=== PATIENT | female | born 1945 | race Caucasian/White ===

== ENCOUNTER 2022-02-16 19:16 | Outpatient (CLI) | payer OTHER, SELFPAY | END 2022-02-16 19:17 | disposition home or self-care (01) | LOC: AMB 03-02 12:53 | PROVIDERS: PCP Family Medicine; Visit Provider Family Medicine | DX: M54.9 Dorsalgia, unspecified (principal) | CPT/HCPCS: A0425; A0427 ==

== ENCOUNTER 2022-02-16 20:09 | Inpatient (IN) | payer OTHER, SELFPAY ==
[2022-02-16 20:10] VITALS: BP 147/96
[2022-02-16 20:19] VITALS: BP 142/88; PULSE 48; RESP 11; TEMP 36.8; O2SAT 95; BMI 24.8
[2022-02-16 20:20] VITALS: BP 142/88; PULSE 48; RESP 16; O2SAT 96
[2022-02-16 20:40] VITALS: BP 146/64; PULSE 51; RESP 14; O2SAT 96
[2022-02-16] MEDS: HYDROmorphone 0.5 mg/0.5 ml inj IVP ×2 (20:57→21:45)
[2022-02-16 21:00] VITALS: BP 143/57; PULSE 52; RESP 16; O2SAT 95
--- NOTE | 2022-02-16 21:19 | ED.NURSE ---
Pt states back pain down from a 7 to a 4 now after IV social media executive.
[2022-02-16 22:47] LABS: SARS PCR* Negative SARS-CoV-2 (Negative)
--- NOTE | 2022-02-16 22:54 | CRLHL7_ITS ---
For Patients: As a result of the Century Cures Act, medical imaging exams and procedure reports are released immediately into your electronic medical record. You may view this report before your referring provider. If you have questions, please contact your health care provider. INDICATION: Right groin pelvic hip pain TECHNIQUE: Pelvis radiograph, Hip radiograph 3 views right COMPARISON: 11/30/2021 FINDINGS: Bone: No acute fractures or aggressive bone lesions are identified. Severe diffuse osteopenia is noted. Joint: The hip joints are unremarkable. The visualized sacroiliac joints are unremarkable in appearance. The pubic symphysis is normal in appearance. Soft tissue: Unremarkable. The visualized bowel gas pattern of the pelvis is unremarkable in appearance. No radiopaque foreign bodies are seen. IMPRESSION: 1. No acute osseous injuries or abnormalities are noted. Dictated by: John Blum MD @ 02/16/2022 23:55:57 (Electronically Signed)
--- NOTE | 2022-02-16 23:33 | P.IMHP_ITS ---
Hospitalist- H&P: HPI History of Present Illness Date Seen: 02/16/22 Chief complaint: BACK SPASMS - BACK PAIN Narrative: Kendra Steel is a 76 year old female admitted through the emergency department with low back pain, right groin and leg pain. Patient appears to be somewhat sedated and has a hard time recalling recent events. After some effort the following recent history is obtained: Patient fell on about January 01 and was seen in our emergency room January 05 where she was diagnosed with L4 and L3 compression fractures as well as spinal stenosis and multilevel bilateral foraminal stenosis of her lumbar spine. She was discharged to home with her and reports it was difficult but she was able to manage. She had outpatient back clinic follow-up as well as follow up with her primary care provider. She thinks her back is getting better. She recalls that her initial back pain was on the left side primarily and that her pain now is on the right side and seems different to her. In reviewing notes from the emergency department and clinic visit it sounds like symptoms have been on both sides. is now complaining because she is having increasing right groin pain. She is not aware of a new injury. She has not had a fever. She reports is quite difficult for her to walk and nurses in the emergency department say that she cannot get up without assistance. Evaluation in the clinic as well as in the emergency room shows no new neurologic deficits on physical examination. Patient has been on MS Contin 15 mg b.i.d. and gabapentin 600 mg 3 times a day for managing her pain. She was apparently also treated with calcitonin nasal spray at some point but this is apparently been stopped. She had a trial of steroids at some point as well probably not on that any longer. Patient does not know any of her current medications by name or dose or purpose. She is not having bowel incontinence. She has had some constipation and uses some form of laxative occasionally for that. She does not have any numbness in or legs or feet. Review of Systems Narrative: She denies any other symptoms of illness including headache, cold, cough, sore throat, chest pain, shortness of breath, syncope, nausea, vomiting, abdominal pain. She has been eating normally. She does have some lower extremity edema which she says is developed over the past few weeks. 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 is healthcare power of assistant county attorney. Code status is DNR. She is a former cigarette smoker. Formally had a problem with alcohol abuse. She is unable to tell me today if she is still drinking and when she last had something to drink. She does not use recreational drugs. Smoking Status: Former smoker Do you use any of these nicotine containing products: None Second hand tobacco smoke exposure: No How often do you have a drink containing alcohol: monthly or less AUDIT-C Alcohol total score: 1 Non-prescribed substance use: denies use Meds Home Medications and Allergies Home Medications Medication Instructions Recorded Confirmed Type amlodipine 5 mg tablet 5 mg PO DAILY tab 01/26/22 02/16/22 History aspirin-calcium carbonate 81 1 tab PO tab 01/26/22 01/26/22 History mg-300 mg calcium (777 mg) tablet bupropion HCl 150 mg 24 hr tablet, 150 mg PO DAILY 01/26/22 02/16/22 History extended release cholecalciferol (vitamin D3) 125 5,000 unit PO DAILY tab 01/26/22 02/16/22 History mcg (5,000 unit) tablet cyanocobalamin (vitamin B-12) 1,000 mcg PO DAILY 01/26/22 02/16/22 History 1,000 mcg tablet ferrous sulfate 325 mg (65 mg 325 mg PO DAILY tab 01/26/22 02/16/22 History iron) tablet fluoxetine 20 mg capsule 20 mg PO DAILY 01/26/22 02/16/22 History gabapentin 300 mg capsule 600 mg PO TID cap 01/26/22 02/16/22 History levothyroxine 100 mcg tablet 100 mcg PO DAILY tab 01/26/22 02/16/22 History magnesium chloride 64 mg 64 mg PO DAILY 01/26/22 02/16/22 History (magnesium chloride) tablet,delayed release metoprolol succinate 25 mg 50 mg PO DAILY 01/26/22 02/16/22 History tablet,extended release 24 hr metoprolol succinate 50 mg 50 mg PO DAILY 01/26/22 02/16/22 History tablet,extended release 24 hr pantoprazole 40 mg tablet,delayed 40 mg PO DAILY 01/26/22 02/16/22 History release polyethylene glycol 3350 17 17 g PO DAILY PRN g 01/26/22 02/16/22 History gram/dose oral powder primidone 50 mg tablet 50 mg PO Q12H tab 01/26/22 02/16/22 History rosuvastatin 10 mg tablet 10 mg PO DAILY 01/26/22 02/16/22 History simvastatin 40 mg tablet 40 mg PO .Bedtime 01/26/22 02/16/22 History warfarin 5 mg tablet 5 mg PO DAILY tab 01/26/22 02/16/22 History hydrocodone 5 mg-acetaminophen 325 1 - 2 tab PO Q6H PRN tab 01/27/22 01/27/22 History mg tablet alendronate 70 mg tablet 70 mg PO .weekly 02/16/22 02/16/22 History amiodarone 200 mg tablet 200 mg PO DAILY 02/16/22 02/16/22 History furosemide 40 mg tablet 40 mg PO DAILY PRN 02/16/22 02/16/22 History morphine 15 mg tablet,extended 15 mg PO Q12H 02/16/22 02/16/22 History release Allergies Allergy/AdvReac Type Severity Reaction Status Date / Time pneumococcal vaccine Allergy Severe Anaphylaxis Verified 02/16/22 20:25 [From Prevnar 13 (PF)] prednisone Allergy Mild Rash Verified 02/16/22 20:26 Influenza A virus Allergy Severe Anaphylaxis Uncoded 02/16/22 20:25 Exam Narrative: Exam Narrative: She is sleeping but arouses to voice. She appears somewhat sedated. She is oriented to her circumstances. slow to answer questions. Has difficulty recalling recent events such as when she was injured, where her pain was before, what evaluation has been done, what treatment she is taking. Head is without evidence of trauma. Eyes are normal. Pupils are not pinpoint. Extraocular movements are full. Oropharynx is normal with dry mucous membranes. No mucosal abnormalities. No facial asymmetry. Neck is supple without mass or adenopathy. Respirations are clear to auscultation. Good air exchange all lung pak. Cardiovascular: S1, S2, regular rate and rhythm. No murmur gallop or rub. Abdomen: Bowel sounds active. Abdomen is soft without tenderness or mass. External genitalia normal. Extremities with 1+ edema bilaterally. She has intact pedal pulses and intact sensation in lower extremities. She is unable to lift either heel off of the gurney. She can flex both knees to about 90?. She reports pain in her right groin limiting that side and not so much on the left. Straight leg raising causes right groin pain on the right. Poorly tolerates internal next rotation and abduction and adduction of the right hip. Range of motion in the right knee is unremarkable. Strength testing is limited because of right groin pain. Right ankle as normal flexion and extension. Right Great toe normal dorsiflexion. Left lower extremity is also weak. She does not tolerate strength testing but no focal weakness is identified in knee flexion extension, ankle dorsiflexion plantar flexion and great toe dorsiflexion on the left. Left hip flexion is inhibited by pain. Const: Vital Signs, click to edit/add: Vital Signs - 24 hr 02/16/22 20:10 02/16/22 20:19 02/16/22 20:20 Temperature 98.3 F Pulse Rate [Right Pulse Oximeter] 48 L 48 L Respiratory Rate 11 L 16 Blood Pressure [Le ft Upper Arm] 147/96 H 142/88 H 142/88 H Pulse Oximetry 95 96 02/16/22 20:40 02/16/22 21:00 Temperature Pulse Rate [Right Pulse Oximeter] 51 L 52 L Respiratory Rate 14 16 Blood Pressure [Le ft Upper Arm] 146/64 H 143/57 H Pulse Oximetry 96 95 Documenting provider has reviewed patient's vital signs: yes Assessment and Plan Assessment and plan (1) Right groin pain: Status: Acute Assessment and Plan: Cause of her right groin pain may be from her multilevel lumbar disease seen on MRI from January 05. Notes indicate that this groin pain may not be new but she tells me this is a new problem. Will obtain radiographs of the hip and pelvis looking for other abnormalities including pelvic fracture, hip fracture, osteoarthritis. PT and OT to evaluate. (2) Disability of walking: Status: Acute Assessment and Plan: Due to her multilevel lumbar disease, compression fractures, spinal stenosis, foraminal stenosis and her right groin pain patient appears to be unable to ambulate independently. Will have PT and OT evaluate. Consider additional imaging if necessary. At this point patient appears that she is not going to be able to live independently based on what I have seen jimmy (3) Chronic, continuous use of opioids: Status: Acute Assessment and Plan: Patient appears overly sedated, possibly due to her pain medications. By history it sounds like her pain is been poorly controlled. This appears to be a difficult management problem with both uncontrolled pain and excessive sedation from pain medications occurring at the same time. She is a poor candidate for long-term opioid therapy with her history of alcoholism and other mental health issues. (4) Spinal stenosis: Problem comment: Severe spinal stenosis at L3-4 with complete effacement of the thecal sac and moderate bilateral foraminal stenosis. Moderate spinal stenosis at L4-5 Status: Acute Assessment and Plan: Uncertain how much this is contributing to her pain so further evaluation is warranted. (5) Radiculopathy due to disorder of intervertebral disc of lumbar spine: Problem comment: See MRI from 01/05/2022 Status: Acute (6) Compression fracture of lumbar vertebra: Problem comment: L3 and L4 compression fracture 01/05/2022 Status: Acute (7) Altered mental status: Status: Acute Assessment and Plan: Excessive sedation presumably secondary to opioid medications plus gabapentin. Optimally these would be tapered over weeks. Will start with tapering gabapentin tonamber. I am under able to ascertain susyight how much background cognitive impairment there is and how much sedation there is present at this time. It does concern me that she is independent in managing her relatively complex medication regimen but does not know any of her medications, their doses or purposes. She apparently has no assistance with medications and does not use a pill box. Plan Will assess and monitor other chronic medical problems while she is in the hospital. Primary attention will be paid however to her disability, back and groin problems which are now disabling her to the point of not being independently functional
[2022-02-16 23:41] LABS: Albumin* 2.9 g/dL (3.3-5.0); Chloride* 100 mmol/L (96-114)
[2022-02-16 23:42] LABS: Potassium* 3.2 mmol/L (3.6-5.1); Sodium* 135 mmol/L (135-149)
[2022-02-16 23:44] LABS: Creatinine* 1.1 mg/dL (0.5-1.5); Est. Creatinine Clearance* 37.12; Estimated Glomerular Filt Rate 53 ml/min
[2022-02-16 23:45] LABS: Alanine Aminotransferase* 9 U/L (4-35); Alkaline Phosphatase* 109 U/L (40-150); Aspartate Amino Transferase* 19 U/L (12-35); Bilirubin Total* 0.4 mg/dL (0.1-1.5); Blood Urea Nitrogen* 14 mg/dL (7-30); Calcium* 7.9 mg/dL (8.4-10.6); Carbon Dioxide* 33 mmol/L (20-32); Glucose* 107 mg/dL (60-115); Total Protein* 5.6 g/dL (6.0-8.3)
[2022-02-16 23:48] LABS: C Reactive Protein* 3.9 mg/dL (0.5-1.0); Ethanol* < 0.01 % (0.01-0.03)
[2022-02-16 23:48] LABS: Basophils Absolute Auto 0.01 K/uL (0.00-0.30); Basophils Percent Auto 0.2 % (0.0-3.0); Eosinophils Absolute Auto 0.06 K/uL (0.00-0.50); Hematocrit 32.8 % (33.0-51.0); Hemoglobin* 10.6 gm/dL (12.0-16.0); Immature Granulocytes Abs Auto 0.02 K/uL (0.00-0.30); Lymphocytes Absolute Auto 1.61 K/uL (0.90-2.90); Mean Corpuscular HGB Conc 32 gm/dL (32-36); Mean Corpuscular Hemoglobin 35 pg (26-34); Mean Corpuscular Volume 108 fL (80-100); Monocytes Percent Auto 10.5 % (0.0-11.0); Neutrophils Absolute Auto 3.85 K/uL (1.7-7.0); Platelet Count* 148 K/uL (140-440); RDW Coefficient of Variation % 14.5 % (11.5-15.5); Red Blood Count 3.05 m/uL (4.00-5.20)
--- NOTE | 2022-02-16 23:48 | ED.BACK ---
HPI - Back Pain/Injury General Date Seen: 02/16/22 Chief Complaint: Back Injury/Pain Stated Complaint: BACK SPASMS - BACK PAIN Time Seen by Provider: 02/16/22 20:15 Source: patient and family Mode of arrival: EMS Limitations: no limitations History of Present Illness HPI Narrative: Patient is a 76-year-old female who presents by EMS with increasing back pain. Pain goes into her right lower extremity a little bit bilaterally, into her right groin. Actually had seen her in my medical [facility]. Placed her on gabapentin, gave her my calcitonin nasal spray. She follow-up with her physician and was placed on MS Contin. Her back pain is worsened she has not been wearing the brace I told her to wear. And she is stopped use she tells me she has no problems with bowel or bladder although she is spring little bit a urine and has to wear a pad. No numbness tingling weakness in her lower extremities, no fevers chills, please see my note from seeing her in spine clinic MD elicited complaint: back pain Pertinent past history: prior back pain and recent trauma Onset (ago): week(s) Timing: constant Severity: severe Similar Symptoms Previously: Yes Quality: burning, stabbing, spasming and throbbing Location: lumbar spine Radiation: none Exacerbating factors: movement, sitting upright and walking Relieving factors: none Treatments prior to arrival: prescription analgesics Work related injury: No Related Data Home Medications Medication Instructions Recorded Confirmed amlodipine 5 mg tablet 5 mg PO DAILY tab 01/26/22 02/16/22 aspirin-calcium carbonate 81 1 tab PO tab 01/26/22 01/26/22 mg-300 mg calcium (777 mg) tablet bupropion HCl 150 mg 24 hr tablet, 150 mg PO DAILY 01/26/22 02/16/22 extended release cholecalciferol (vitamin D3) 125 5,000 unit PO DAILY tab 01/26/22 02/16/22 mcg (5,000 unit) tablet cyanocobalamin (vitamin B-12) 1,000 mcg PO DAILY 01/26/22 02/16/22 1,000 mcg tablet ferrous sulfate 325 mg (65 mg 325 mg PO DAILY tab 01/26/22 02/16/22 iron) tablet fluoxetine 20 mg capsule 20 mg PO DAILY 01/26/22 02/16/22 gabapentin 300 mg capsule 600 mg PO TID cap 01/26/22 02/16/22 levothyroxine 100 mcg tablet 100 mcg PO DAILY tab 01/26/22 02/16/22 magnesium chloride 64 mg 64 mg PO DAILY 01/26/22 02/16/22 (magnesium chloride) tablet,delayed release metoprolol succinate 25 mg 50 mg PO DAILY 01/26/22 02/16/22 tablet,extended release 24 hr metoprolol succinate 50 mg 50 mg PO DAILY 01/26/22 02/16/22 tablet,extended release 24 hr pantoprazole 40 mg tablet,delayed 40 mg PO DAILY 01/26/22 02/16/22 release polyethylene glycol 3350 17 17 g PO DAILY PRN g 01/26/22 02/16/22 gram/dose oral powder primidone 50 mg tablet 50 mg PO Q12H tab 01/26/22 02/16/22 rosuvastatin 10 mg tablet 10 mg PO DAILY 01/26/22 02/16/22 simvastatin 40 mg tablet 40 mg PO .Bedtime 01/26/22 02/16/22 warfarin 5 mg tablet 5 mg PO DAILY tab 01/26/22 02/16/22 hydrocodone 5 mg-acetaminophen 325 1 - 2 tab PO Q6H PRN tab 01/27/22 01/27/22 mg tablet alendronate 70 mg tablet 70 mg PO .weekly 02/16/22 02/16/22 amiodarone 200 mg tablet 200 mg PO DAILY 02/16/22 02/16/22 furosemide 40 mg tablet 40 mg PO DAILY PRN 02/16/22 02/16/22 morphine 15 mg tablet,extended 15 mg PO Q12H 02/16/22 02/16/22 release Previous Rx's Medication Instructions Recorded calcitonin (salmon) 200 1 spray INTRANASAL (ALT) QDAY 60 01/27/22 unit/actuation nasal spray Days #3.7 ml NS Allergies Allergy/AdvReac Type Severity Reaction Status Date / Time pneumococcal vaccine Allergy Severe Anaphylaxis Verified 02/16/22 20:25 [From Prevnar 13 (PF)] prednisone Allergy Mild Rash Verified 02/16/22 20:26 Influenza A virus Allergy Severe Anaphylaxis Uncoded 02/16/22 20:25 Review of Systems Status of ROS: Reports: 10 or more systems reviewed and unremarkable except as noted in History and below [facility] Medical History Altered mental status Anemia Chronic anticoagulation Compression fracture of lumbar vertebra COPD (chronic obstructive pulmonary disease) Depression Disability of walking Hiatal hernia History of alcoholism Hyperlipidemia Hypothyroidism Lumbar radicular pain Osteoporosis Panic disorder Paroxysmal atrial fibrillation Restrictive pericarditis Right groin pain Stage 3 chronic kidney disease Thyroid disease Tremors of nervous system Vitamin B12 deficiency Surgical History History of repair of hiatal hernia History of total right knee replacement (11/02/20) Family History Mother Breast cancer Lung cancer Social History (Updated 02/16/22 @ 23:42 by Chema Kirk MD) Narrative: She lives near [place] with her . is healthcare power of [place] attorney. Code status is DNR. She is a former cigarette smoker. Formally had a problem with alcohol abuse. She is unable to tell me today if she is still drinking and when she last had something to drink. She does not use recreational drugs. Smoking Status: Former smoker Do you use any of these nicotine containing products: None Second hand tobacco smoke exposure: No How often do you have a drink containing alcohol: monthly or less AUDIT-C Alcohol total score: 1 Non-prescribed substance use: denies use Exam Narrative: Exam Narrative: I see here in room 6. She complains of some leg swelling although I do not really see a lot of edema of her lower legs her EHLs great toe flexors ankle dorsiflexors plantar flexors knee flexion and hip flexors are graded 5/5 power bilaterally. She has scars on her right knee from a previous total knee, sensation is normal over both her legs bilaterally and she has normal pulses. Straight leg things positive a 20? on the right side with been listed of back pain. And pain to her right groin. I did roll her over. Palpation over her lumbar spine shows no pain or tenderness. She has good rectal tone. No perianal sensation abnormality. Her abdomen is soft there is no guarding no guarding, no organomegaly. Bowel sounds are normal. Chest is good air entry heart sounds are normal, Const: Vital Signs, click to edit/add: Vital Signs - 24 hr 02/16/22 20:10 02/16/22 20:19 02/16/22 20:20 Temperature 98.3 F Pulse Rate [Right Pulse Oximeter] 48 L 48 L Respiratory Rate 11 L 16 Blood Pressure [Le ft Upper Arm] 147/96 H 142/88 H 142/88 H Pulse Oximetry 95 96 02/16/22 20:40 02/16/22 21:00 Temperature Pulse Rate [Right Pulse Oximeter] 51 L 52 L Respiratory Rate 14 16 Blood Pressure [Le ft Upper Arm] 146/64 H 143/57 H Pulse Oximetry 96 95 Course Vital Signs Vital signs: Initial Vital Signs Blood Pressure 147/96 H 02/16/22 20:10 Blood Pressure Mean 113 02/16/22 20:10 Blood Pressure Position Supine 02/16/22 20:10 Vital Signs Blood Pressure 147/96 H 02/16/22 20:10 Temperature 98.3 F 02/16/22 20:19 Pulse Rate 52 L 02/16/22 21:00 Respiratory Rate 16 02/16/22 21:00 Blood Pressure 143/57 H 02/16/22 21:00 Pulse Oximetry 95 02/16/22 21:00 MDM - Back Pain/Injury Differential Diagnosis Differential diagnosis: Likely lumbar radiculopathy, sciatica, strain of lumbar region, thoracic back pain and AAA Medical Records Attestation: I reviewed the patient's medical records. Lab Data Attestation: I reviewed the patient's lab results. Labs: Lab Results 02/16/22 Range/Units 21:45 SARS-CoV-2 (PCR) Negative SARS-CoV-2 (Negative) Discharge Plan Discharge Clinical Impression: Compression fracture of L4 vertebra, Chronic, continuous use of opioids, Compression fracture of lumbar vertebra, Radiculopathy due to disorder of intervertebral disc of lumbar spine, Spinal stenosis of lumbar region without neurogenic claudication Patient Disposition: Admitted As Inpatient Condition: Improved
[2022-02-16 23:49] LABS: Slide Review Reflex No
[2022-02-17] VITALS (8 sets, daily range): BP systolic 137–179; BP diastolic 73–94; PULSE 50–52; RESP 18–20; TEMP 36.3–36.8; O2SAT 94–100; BMI 28.7
[2022-02-17] MEDS: PRIMIDONE 50 MG TABLET PO ×3 (00:14→23:27)
[2022-02-17] MEDS: POTASSIUM BICARB 25 MEQ EFFERVESCENT TAB PO (00:54)
[2022-02-17 00:58] LABS: D Dimer Quantitative* 0.88 ug/ml (0.00-0.50)
[2022-02-17 01:00] LABS: Prothrombin Time 97.7 Seconds
[2022-02-17 04:50] LABS: Appearance Urine Clear (Clear); Bilirubin Urine Negative (Negative); Blood Urine Negative (Negative); Color Urine Yellow (Yellow); Glucose Urine Negative (Negative); Ketones Urine Negative (Negative); Leukocyte Esterase Urine Negative (Negative); Nitrite Urine Negative (Negative); Protein Urine Negative (Negative); Specific Gravity Urine 1.015 (1.000-1.030)
[2022-02-17 05:00] LABS: Amphetamine Screen Urine Negative (Negative); Benzodiazepines Screen Urine Negative (Negative); Cannabinoid Screen Urine Negative (Negative); Cocaine Screen Urine Negative (Negative); Methadone Screen Urine Negative (Negative); Methamphetamines Screen Urine Negative (Negative); Oxycodone Screen Urine Negative (Negative); Phencyclidine Screen Urine Negative (Negative); Tricyclic Antidepressant Urine Negative (Negative)
[2022-02-17 05:01] LABS: Barbiturate Screen Urine POSITIVE (Negative); Opiate Screen Urine POSITIVE (Negative)
--- NOTE | 2022-02-17 05:29 | PC.NURSE ---
Shift 7p-7a: Admitted pt. into room 247 around midnight. Pt. AOx4, following commands. VSS on RA, Pt.'s BP high with systolic 170's with movement and pain. Pt. received morphine PRN for pain, repositioned for comfort q2h. Pt. voiding w/o difficulty, intermittently incontinent. Pt.'s urinalysis results pending. Plan for PT/OT consult today
[2022-02-17] MEDS: LEVOTHYROXINE 100 MCG TABLET PO (06:09)
[2022-02-17 07:39] LABS: Basophils Absolute Auto 0.01 K/uL (0.00-0.30); Basophils Percent Auto 0.2 % (0.0-3.0); Eosinophils Absolute Auto 0.05 K/uL (0.00-0.50); Eosinophils Percent Auto 0.9 % (0.0-7.0); Hematocrit 32.2 % (33.0-51.0); Hemoglobin* 10.6 gm/dL (12.0-16.0); Immature Granulocytes Abs Auto 0.01 K/uL (0.00-0.30); Lymphocytes Absolute Auto 1.17 K/uL (0.90-2.90); Lymphocytes Percent Auto 22.2 % (20-44); Mean Corpuscular HGB Conc 33 gm/dL (32-36); Mean Corpuscular Hemoglobin 36 pg (26-34); Mean Corpuscular Volume 108 fL (80-100); Monocytes Percent Auto 10.1 % (0.0-11.0); Neutrophils Percent Auto 66.4 % (42.0-72.0); Platelet Count* 144 K/uL (140-440); RDW Coefficient of Variation % 14.6 % (11.5-15.5); Red Blood Count 2.98 m/uL (4.00-5.20); White Blood Count* 5.27 K/uL (4.50-11.00)
[2022-02-17 07:41] LABS: Slide Review Reflex No
[2022-02-17 07:56] LABS: Chloride* 101 mmol/L (96-114); Potassium* 3.6 mmol/L (3.6-5.1); Sodium* 137 mmol/L (135-149)
[2022-02-17 07:59] LABS: Blood Urea Nitrogen* 12 mg/dL (7-30); Carbon Dioxide* 33 mmol/L (20-32); Est. Creatinine Clearance* 40.83; Estimated Glomerular Filt Rate 59 ml/min; Glucose* 92 mg/dL (60-115)
[2022-02-17 08:00] LABS: Calcium* 7.9 mg/dL (8.4-10.6); Magnesium* 1.9 mg/dL (1.5-2.6)
[2022-02-17 08:50] LABS: INR 13.64 (0.91-1.10)
[2022-02-17] MEDS: KETOROLAC 15 MG/ML inj IVP (09:14)
--- NOTE | 2022-02-17 10:03 | PC.NURSE ---
Addendum entered by Fern Tang RN 02/17/22 12:01: Orders rece'd for Vitamin K IV and INR re-draw at 1400. Lab notified. Pt. tolerated Vit K well, completed PT/OT consults, able to stand w/walker and transfer this way to [facility] and back to chair. Fentanyl patch applied to R low back, lumbar-sacral region. Pt notes feeling better than this AM. Tolerates reg. diet, takes pills w/water. Spouse, Lex, in room. Pt. requested to rest at this time. Original Note: Pt. with 10/10 pain this morning, given PO morphine with some relief. Ceiling lift from BS to recliner. Pain focused in right leg and across back. updated; orders received. Meds given per eMAR. Critical INR received from lab of 13 plus. updated, stat re-draw entered and drawn around 0900. Called lab to check on results at 1000; stated new INR draw was 12.62. updated.
[2022-02-17 10:04] LABS: Prothrombin Time 94.2 Seconds
[2022-02-17 10:05] LABS: INR 12.62 (0.91-1.10)
[2022-02-17] MEDS: PHYTONADIONE (VIT K1) 10 MG in 0.9 % SODIUM CHLORIDE 50 ml 50 ML 100 MG IVPB (10:33)
[2022-02-17] MEDS: fentaNYL 12 mcg/hr PATCH 1 PATCH TRANSDERMA (10:38)
[2022-02-17] MEDS: ACETAMINOPHEN 650 MG TABLET ER 1300 MG PO ×2 (10:38→19:53)
[2022-02-17] MEDS: buPROPion XL 150 MG TABLET PO (10:39)
[2022-02-17] MEDS: OMEPRAZOLE 20 MG CAPSULE DR 40 MG PO (10:39)
[2022-02-17] MEDS: CYANOCOBALAMIN (VITAMIN B-12) 500 MCG TABLET 1000 MCG PO (10:39)
[2022-02-17] MEDS: ROSUVASTATIN CALCIUM 10 MG TABLET PO (10:39)
[2022-02-17] MEDS: AMLODIPINE 5 MG TABLET PO (10:40)
[2022-02-17] MEDS: FLUOXETINE HCL 20 MG CAPSULE PO (10:41)
[2022-02-17] MEDS: METOPROLOL SUCCINATE (XL) 25 MG TAB PO (10:42)
[2022-02-17] MEDS: FERROUS SULFATE 325 MG TABLET PO (10:42)
[2022-02-17] MEDS: GABAPENTIN 100 MG CAPSULE PO ×3 (10:43→21:14)
[2022-02-17] MEDS: AMIODARONE 200 MG TABLET PO (10:44)
[2022-02-17 14:40] LABS: INR 2.47 (0.91-1.10); Prothrombin Time 27.2 Seconds
--- NOTE | 2022-02-17 15:39 | PM.IMPN1 ---
Progress Note: A&P Assessment and plan (1) Elevated INR: Status: Acute Assessment and Plan: Inexplicably she was at goal, less 2 at admission and then jumped to 12 in 13 this morning. After vitamin K was back down to less than 3. I cannot explain why her INR jumped even after verification. I wonder if in her pain crisis she extra doses of warfarin and not Tylenol or other pain medication. (2) Pain crisis: Status: Acute Assessment and Plan: Significant pain from fracture, osteoporotic and severe spinal stenosis. Pain radiates into her groin. I have made several medication adjustments since admission. Please see the Mar. She came in on higher doses of gabapentin 300 t.i.d., extended release morphine twice a day. I would like to schedule Tylenol, schedule Calcitonin, apply a fentanyl patch, 12.5 mcg, and reduce her gabapentin. We had her on immediate release oral morphine and I am going to decrease this since I started the fentanyl (3) Altered mental status: Status: Acute Assessment and Plan: Much improved. I really wonder what she took at home that made her so groggy and confused. (4) Compression fracture of lumbar vertebra: Problem details: L3 and L4 compression fracture 01/05/2022 Status: Acute Assessment and Plan: As above (5) Spinal stenosis of lumbar region without neurogenic claudication: Problem details: Severe spinal stenosis at L3-4 with complete effacement of the thecal sac and moderate bilateral foraminal stenosis. Moderate spinal stenosis at L4-5 Status: Acute Assessment and Plan: As above (6) Disability of walking: Status: Acute Assessment and Plan: I suspect she will need a couple weeks of rehab to manage medication and strength and endurance. (7) Chronic, continuous use of opioids: Status: Acute Assessment and Plan: It is possible that using a fentanyl patch may work better for her than extended release morphine. the other adjuvant medications to include Calcitonin and Tylenol with a reduction of the gabapentin may help with her mental clearing. Subjective Date Seen: 02/17/22 Interval history: Daily Progress Note - Hospital Medicine Day #: 2 CC: Admitted overnight with pain crisis, altered mental status. Significantly elevated INR noted this more OVERNIGHT UPDATES FROM STAFF & MED, LAB, IMAGING UPDATES Patient's mental fogginess has improved. Still complaining of groin and back pain. She still has weakness in her legs. However the pain has improved since admission. Interestingly, inexplicably. Mildly hypertensive 155/94 Pulse 52 Afebrile Room air Lab review MCV elevated 108. Modest anemia Surprisingly her INR went from 1.3 and then in explode complete jumped to 13.6 on repeat was 12.6 after 10 mg of IV vitamin K was down to 2.47 Mildly elevated TSH FINDINGS: Bone: No acute fractures or aggressive bone lesions are identified. Severe diffuse osteopenia is noted. Joint: The hip joints are unremarkable. The visualized sacroiliac joints are unremarkable in appearance. The pubic symphysis is normal in appearance. Soft tissue: Unremarkable. The visualized bowel gas pattern of the pelvis is unremarkable in appearance. No radiopaque foreign bodies are seen. IMPRESSION: 1. No acute osseous injuries or abnormalities are noted. Lumbar spine MRI done on 01/05. Impression : 1. Acute L4 superior endplate compression fracture. 20 percent vertebral body height loss with no retropulsed fragments. Mild-moderate chronic L3 compression fracture 2. At L3-4, severe spinal canal stenosis with complete effacement of the thecal sac and moderate bilateral foramen stenosis. 3. At L4-5, moderate spinal canal stenosis and mild bilateral neural foramen narrowing. 4. At L5-S1, moderate right neural foramen narrowing due to facet joint synovial cyst. 5. At L2-3, moderate subarticular recess narrowing, moderate right and mild left neural foramen narrowing. Review of Systems: See subjective Cardiac: No new chest pain/pressure/palpitations. Respiratory: no new dyspnea. GI: No abdominal bloating Objective: Vitals: see above Lungs: Clear. Cardiac: S1S2. Disposition/Potential discharge - Likely to return to previous living situation. Total time is 70 minutes with greater than 50% spent in counseling and coordination of care. Exam Const: Vital Signs, click to edit/add: Vital Signs - 24 hr 02/16/22 20:10 02/16/22 20:19 02/16/22 20:20 Temperature 98.3 F Pulse Rate [Right Pulse Oximeter] 48 L 48 L Respiratory Rate 11 L 16 Blood Pressure [Le ft Arm] Blood Pressure [Le ft Upper Arm] 147/96 H 142/88 H 142/88 H Pulse Oximetry 95 96 02/16/22 20:40 02/16/22 21:00 02/17/22 00:06 Temperature 98.1 F Pulse Rate [Right Pulse Oximeter] 51 L 52 L Respiratory Rate 14 16 18 Blood Pressure [Le ft Arm] 179/74 H Blood Pressure [Le ft Upper Arm] 146/64 H 143/57 H Pulse Oximetry 96 95 100 02/17/22 00:45 02/17/22 03:00 02/17/22 08:15 Temperature 98.1 F 98.1 F Pulse Rate [Right Pulse Oximeter] 52 L Respiratory Rate 18 18 20 Blood Pressure [Le ft Arm] 179/74 H 179/74 H 155/94 H Blood Pressure [Le ft Upper Arm] Pulse Oximetry 100 100 94 Labs Labs: Laboratory Results - last 24 hr 02/16/22 02/16/22 02/16/22 21:45 22:56 22:56 WBC RBC Hgb Hct MCV MCH MCHC RDW Coeff of Norma Plt Count Neut % (Auto) Lymph % (Auto) Mchen[place] % (Auto) Eos % (Auto) Baso % (Auto) Neut # (Auto) Lymph # (Auto) Mchenry # (Auto) Eos # (Auto) Baso # (Auto) Abs Immat Gran (auto) INR D-Dimer Quant (PE/DVT) Sodium 135 Potassium 3.2 L Chloride 100 Carbon Dioxide 33 H BUN 14 Creatinine 1.1 Estimated Creat Clear 37.12 Estimated GFR 53 Glucose 107 Calcium 7.9 L Magnesium Total Bilirubin 0.4 AST 19 ALT 9 Alkaline Phosphatase 109 C-Reactive Protein 3.9 H Total Protein 5.6 L Albumin 2.9 L TSH 8.970 H Urine Color Urine Appearance Urine pH Ur Specific [place] Urine Protein Urine Glucose (UA) Urine Ketones Urine Blood Urine Nitrite Urine Bilirubin Urine Urobilinogen Ur Leukocyte Esterase Urine Opiates Screen Ur Oxycodone Screen Urine Methadone Screen Ur Propoxyphene Screen Ur Barbiturates Screen U Tricyclic Antidepress Ur Phencyclidine Scrn Ur Amphetamines Screen U Methamphetamines Scrn U Benzodiazepines Scrn Urine Cocaine Screen U Marijuana (THC) Screen Ur Drug Screen Comment Ethyl Alcohol < 0.01 L SARS-CoV-2 (PCR) Negative SARS-CoV-2 02/16/22 02/16/22 02/17/22 23:20 23:40 04:26 WBC 6.20 RBC 3.05 L Hgb 10.6 L Hct 32.8 L MCV 108 H MCH 35 H MCHC 32 RDW Coeff of Norma 14.5 Plt Count 148 Neut % (Auto) 62.0 Lymph % (Auto) 26.0 Mchenry % (Auto) 10.5 Eos % (Auto) 1.0 Baso % (Auto) 0.2 Neut # (Auto) 3.85 Lymph # (Auto) 1.61 Mchenry # (Auto) 0.70 Eos # (Auto) 0.06 Baso # (Auto) 0.01 Abs Immat Gran (auto) 0.02 INR 1.30 H D-Dimer Quant (PE/DVT) 0.88 H Sodium Potassium Chloride Carbon Dioxide BUN Creatinine Estimated Creat Clear Estimated GFR Glucose Calcium Magnesium Total Bilirubin AST ALT Alkaline Phosphatase C-Reactive Protein Total Protein Albumin TSH Urine Color Yellow Urine Appearance Clear Urine pH 8.0 Ur Specific [place] 1.015 Urine Protein Negative Urine Glucose (UA) Negative Urine Ketones Negative Urine Blood Negative Urine Nitrite Negative Urine Bilirubin Negative Urine Urobilinogen 1.0 Ur Leukocyte Esterase Negative Urine Opiates Screen Ur Oxycodone Screen Urine Methadone Screen Ur Propoxyphene Screen Ur Barbiturates Screen U Tricyclic Antidepress Ur Phencyclidine Scrn Ur Amphetamines Screen U Methamphetamines Scrn U Benzodiazepines Scrn Urine Cocaine Screen U Marijuana (THC) Screen Ur Drug Screen Comment Ethyl Alcohol SARS-CoV-2 (PCR) 02/17/22 02/17/22 02/17/22 04:26 06:13 06:13 WBC 5.27 RBC 2.98 L Hgb 10.6 L Hct 32.2 L MCV 108 H MCH 36 H MCHC 33 RDW Coeff of Norma 14.6 Plt Count 144 Neut % (Auto) 66.4 Lymph % (Auto) 22.2 Mchen[place] % (Auto) 10.1 Eos % (Auto) 0.9 Baso % (Auto) 0.2 Neut # (Auto) 3.50 Lymph # (Auto) 1.17 Mchenry # (Auto) 0.50 Eos # (Auto) 0.05 Baso # (Auto) 0.01 Abs Immat Gran (auto) 0.01 INR 13.64 H* D-Dimer Quant (PE/DVT) Sodium Potassium Chloride Carbon Dioxide BUN Creatinine Estimated Creat Clear Estimated GFR Glucose Calcium Magnesium Total Bilirubin AST ALT Alkaline Phosphatase C-Reactive Protein Total Protein Albumin TSH Urine Color Urine Appearance Urine pH Ur Specific [place] Urine Protein Urine Glucose (UA) Urine Ketones Urine Blood Urine Nitrite Urine Bilirubin Urine Urobilinogen Ur Leukocyte Esterase Urine Opiates Screen POSITIVE A* Ur Oxycodone Screen Negative Urine Methadone Screen Negative Ur Propoxyphene Screen Negative Ur Barbiturates Screen POSITIVE A* U Tricyclic Antidepress Negative Ur Phencyclidine Scrn Negative Ur Amphetamines Screen Negative U Methamphetamines Scrn Negative U Benzodiazepines Scrn Negative Urine Cocaine Screen Negative U Marijuana (THC) Screen Negative Ur Drug Screen Comment See Note Ethyl Alcohol SARS-CoV-2 (PCR) 02/17/22 02/17/22 02/17/22 06:13 09:00 14:19 WBC RBC Hgb Hct MCV MCH MCHC RDW Coeff of Norma Plt Count Neut % (Auto) Lymph % (Auto) [place]hen[place] % (Auto) Eos % (Auto) Baso % (Auto) Neut # (Auto) Lymph # (Auto) [place]hen[place] # (Auto) Eos # (Auto) Baso # (Auto) Abs Immat Gran (auto) INR 12.62 H* 2.47 H D-Dimer Quant (PE/DVT) Sodium 137 Potassium 3.6 Chloride 101 Carbon Dioxide 33 H BUN 12 Creatinine 1.0 Estimated Creat Clear 40.83 Estimated GFR 59 Glucose 92 Calcium 7.9 L Magnesium 1.9 Total Bilirubin AST ALT Alkaline Phosphatase C-Reactive Protein Total Protein Albumin TSH Urine Color Urine Appearance Urine pH Ur Specific [place] Urine Protein Urine Glucose (UA) Urine Ketones Urine Blood Urine Nitrite Urine Bilirubin Urine Urobilinogen Ur Leukocyte Esterase Urine Opiates Screen Ur Oxycodone Screen Urine Methadone Screen Ur Propoxyphene Screen Ur Barbiturates Screen U Tricyclic Antidepress Ur Phencyclidine Scrn Ur Amphetamines Screen U Methamphetamines Scrn U Benzodiazepines Scrn Urine Cocaine Screen U Marijuana (THC) Screen Ur Drug Screen Comment Ethyl Alcohol SARS-CoV-2 (PCR)
[2022-02-17 17:54] LABS: INR 1.95 (0.91-1.10); Prothrombin Time 22.6 Seconds
--- NOTE | 2022-02-17 19:35 | PC.NURSE ---
: Pt. initially required ceiling lift for transfer to recliner, but able to use walker and Ax1 later after PT/RN assisted. Tolerating activity better this afternoon. IV toradol x1 helpful for pain, as well as Fentanyl patch to R lumbar area. Morphine administered x1 early in shift, otherwise pain controlled w/other scheduled meds. Eating regular diet, but not eating much today; states she is tired. Critical INR reversed w/vitamin K infusion, per subsequent labs this afternoon. Pt. requested to sleep after infusion completed. Using BSC this shift. Nutritional consult placed d/t limited amounts of intake today.
[2022-02-17] MEDS: CALCITONIN SALMON NASAL SPRAY 200 UNIT 1 SPRAY NOSTRIL-B (21:14)
[2022-02-18] VITALS (7 sets, daily range): BP systolic 150–175; BP diastolic 74–90; PULSE 47–52; RESP 12–26; TEMP 36.5–37; O2SAT 96–99
[2022-02-18] MEDS: ACETAMINOPHEN 650 MG TABLET ER 1300 MG PO ×3 (02:18→19:55)
[2022-02-18] MEDS: LEVOTHYROXINE 100 MCG TABLET PO (05:07)
--- NOTE | 2022-02-18 05:39 | PC.NURSE ---
Shift 7p-7a: Pt. AO, following commands, VSS on RA. Pt. transferring from bed to [facility] with Ax1/ RW and gait belt, slow but steady movements. Pt.'s pain managed with scheduled medications, morphine PRN administered x1 for pain breakthrough after pt. went back to bed from [facility]. Voiding w/o difficulty. Plan for possible rehab placement for mobility aid
[2022-02-18 07:24] LABS: HCO3 VBG 31 mmol/L (21-28); Hematocrit 30.3 % (33.0-51.0); Hemoglobin* 9.9 gm/dL (12.0-16.0); Mean Corpuscular HGB Conc 33 gm/dL (32-36); Mean Corpuscular Hemoglobin 35 pg (26-34); Mean Corpuscular Volume 107 fL (80-100); PCO2 VBG 49 mmHG (40-50); PO2 VBG 47.7 mmHG (25-47); Platelet Count* 137 K/uL (140-440); Red Blood Count 2.82 m/uL (4.00-5.20); White Blood Count* 4.35 K/uL (4.50-11.00); pH VBG 7.407 (7.32-7.43)
[2022-02-18 07:45] LABS: INR 1.46 (0.91-1.10); Prothrombin Time 18.2 Seconds
[2022-02-18 07:55] LABS: Slide Review Reflex No
[2022-02-18 08:03] LABS: Albumin* 2.7 g/dL (3.3-5.0); Chloride* 100 mmol/L (96-114); Sodium* 134 mmol/L (135-149)
[2022-02-18 08:04] LABS: Potassium* 3.7 mmol/L (3.6-5.1)
[2022-02-18 08:06] LABS: Aspartate Amino Transferase* 17 U/L (12-35); Bilirubin Total* 0.8 mg/dL (0.1-1.5); Carbon Dioxide* 30 mmol/L (20-32); Est. Creatinine Clearance* 40.83; Estimated Glomerular Filt Rate 59 ml/min
[2022-02-18 08:07] LABS: Alanine Aminotransferase* 6 U/L (4-35); Alkaline Phosphatase* 93 U/L (40-150); Blood Urea Nitrogen* 14 mg/dL (7-30); Calcium* 7.7 mg/dL (8.4-10.6); Glucose* 89 mg/dL (60-115); Magnesium* 1.9 mg/dL (1.5-2.6); Total Protein* 5.5 g/dL (6.0-8.3)
[2022-02-18 08:09] LABS: C Reactive Protein* 5.5 mg/dL (0.5-1.0)
[2022-02-18 08:11] LABS: NT Pro B Type NatriureticPept* 2910 PG/mL (0-125)
--- NOTE | 2022-02-18 09:17 | P.IMPN_ITS ---
Progress Note: A&P Assessment and plan (1) Compression fracture of lumbar vertebra: Problem details: L3 and L4 compression fracture 01/05/2022 Status: Acute Assessment and Plan: Calcitonin and scheduled Tylenol. Fentanyl 25 mcg I have stopped her oral morphine. She came in the hospital on chronic opioids and oral morphine. I think cognitive decline, poor management of pain has led to this opioid management issue and dependence. Going forward, especially in in assisted living and or senior living a fentanyl patch would be safer and easier for monitoring. The typical stepwise fashion of pain control been tried previously as an outpatient. However those details are unclear. (2) Spinal stenosis of lumbar region without neurogenic claudication: Problem details: Severe spinal stenosis at L3-4 with complete effacement of the thecal sac and moderate bilateral foraminal stenosis. Moderate spinal stenosis at L4-5 Status: Acute Assessment and Plan: As above. (3) Pain crisis: Status: Acute Assessment and Plan: Hopefully we can find the right combination of medications to keep her pain manageable, he per mental status as clear as possible and still be able to have her participate in some amount therapy. (4) Elevated INR: Status: Acute Assessment and Plan: Best explanation is mistakenly she took doses of this prior to arrival in the ED. it has normalized after vitamin K administration. I will restart her warfarin dosing with daily INR monitoring (5) Altered mental status: Status: Acute Assessment and Plan: Combination of polypharmacy, chronic pain and cognitive decline (6) Disability of walking: Status: Acute Assessment and Plan: Short-term rehab. Continue working with PT and OT. (7) Chronic, continuous use of opioids: Status: Acute Assessment and Plan: Noted (8) Polypharmacy: Status: Acute Assessment and Plan: Significant risk. I will have the bring in all medications from home, [id number], old prescription bottles. Subjective Date Seen: 02/18/22 Interval history: Daily Progress Note - Hospital Medicine Day #: 3 CC: Continued pain, however somewhat improved. Ambulation/mobility has improved some. OVERNIGHT UPDATES FROM STAFF & MED, LAB, IMAGING UPDATES Patient did not really remember meeting me yesterday. Reports her pain is somewhat better, however definitely reports declining mobility in general Pain management seems to be improved. A spaced out her IR morphine to 7.5 mg b.i.d. after placing 12.5 mcg fentanyl patch. I have also scheduled Tylenol and Calcitonin. Pain management Gabapentin 100 t.i.d., reduced from 300 t.i.d. for sedation reason Scheduled acetaminophen Fentanyl patch 25 mcg Q 72 hours Blood pressure 164/74 Pulse 50 Afebrile Room air Hemoglobin 9.9 MCV 107 INR is now 1.46, we can likely restart her warfarin Sodium a bit low at 134 CRP climbing a little BNP 2900 Review of Systems: See subjective Cardiac: No new chest pain/pressure/palpitations. Respiratory: no new dyspnea. GI: No abdominal bloating MSK/mobility: Patient is still quite heavy assist of at least 1 if not 2. She did ambulate with PT a short distance. She needed the sling to move from bed to chair. Objective: Vitals: see above Lungs: Clear. Cardiac: S1S2. Kyphosis. Poor core strength Disposition/Potential discharge - Looking for placement in short-term rehab versus assisted living. Total time is 35 minutes with greater than 50% spent in counseling and coordination of care. Exam Const: Vital Signs, click to edit/add: Vital Signs - 24 hr 02/17/22 11:33 02/17/22 19:00 02/17/22 23:00 Temperature 97.4 F L 98.2 F 97.9 F Pulse Rate [Right Pulse Oximeter] 51 L 51 L 50 L Respiratory Rate 20 20 18 Blood Pressure [Le ft Arm] 152/82 H 137/74 156/73 H Pulse Oximetry 96 97 97 02/18/22 03:00 02/18/22 07:00 Temperature 97.7 F 97.7 F Pulse Rate [Right Pulse Oximeter] 52 L 47 L Respiratory Rate 18 16 Blood Pressure [Le ft Arm] 172/76 H 150/79 H Pulse Oximetry 96 99 Labs Labs: Laboratory Results - last 24 hr 02/17/22 02/17/22 02/17/22 09:00 14:19 17:14 WBC RBC Hgb Hct MCV MCH MCHC Plt Count INR 12.62 H* 2.47 H 1.95 H VBG pH VBG pCO2 VBG pO2 VBG HCO3 Sodium Potassium Chloride Carbon Dioxide BUN Creatinine Estimated Creat Clear Estimated GFR Glucose Calcium Magnesium Total Bilirubin AST ALT Alkaline Phosphatase C-Reactive Protein NT-Pro-B Natriuret Pep Total Protein Albumin 02/18/22 02/18/22 02/18/22 05:50 05:50 05:50 WBC 4.35 L RBC 2.82 L Hgb 9.9 L Hct 30.3 L MCV 107 H MCH 35 H MCHC 33 Plt Count 137 L INR 1.46 H VBG pH VBG pCO2 VBG pO2 VBG HCO3 Sodium 134 L Potassium 3.7 Chloride 100 Carbon Dioxide 30 BUN 14 Creatinine 1.0 Estimated Creat Clear 40.83 Estimated GFR 59 Glucose 89 Calcium 7.7 L Magnesium 1.9 Total Bilirubin 0.8 AST 17 ALT 6 Alkaline Phosphatase 93 C-Reactive Protein 5.5 H NT-Pro-B Natriuret Pep 2910 H Total Protein 5.5 L Albumin 2.7 L 02/18/22 05:50 WBC RBC Hgb Hct MCV MCH MCHC Plt Count INR VBG pH 7.407 VBG pCO2 49 VBG pO2 47.7 H VBG HCO3 31 H Sodium Potassium Chloride Carbon Dioxide BUN Creatinine Estimated Creat Clear Estimated GFR Glucose Calcium Magnesium Total Bilirubin AST ALT Alkaline Phosphatase C-Reactive Protein NT-Pro-B Natriuret Pep Total Protein Albumin
[2022-02-18] MEDS: CYANOCOBALAMIN (VITAMIN B-12) 500 MCG TABLET 1000 MCG PO (09:32)
[2022-02-18] MEDS: GABAPENTIN 100 MG CAPSULE PO ×3 (09:33→21:34)
[2022-02-18] MEDS: buPROPion XL 150 MG TABLET PO (09:33)
[2022-02-18] MEDS: AMLODIPINE 5 MG TABLET PO (09:34)
[2022-02-18] MEDS: METOPROLOL SUCCINATE (XL) 25 MG TAB PO (09:34)
[2022-02-18] MEDS: OMEPRAZOLE 20 MG CAPSULE DR 40 MG PO (09:35)
[2022-02-18] MEDS: AMIODARONE 200 MG TABLET PO (09:35)
[2022-02-18] MEDS: ROSUVASTATIN CALCIUM 10 MG TABLET PO (09:36)
[2022-02-18] MEDS: FERROUS SULFATE 325 MG TABLET PO (09:36)
[2022-02-18] MEDS: FLUOXETINE HCL 20 MG CAPSULE PO (09:36)
[2022-02-18] MEDS: fentaNYL 25 MCG/HR PATCH 1 PATCH TRANSDERMA (09:52)
[2022-02-18] MEDS: PRIMIDONE 50 MG TABLET PO ×2 (11:36→23:12)
--- NOTE | 2022-02-18 14:53 | PC.SOCIAL ---
Discharge planning: Met with pt adn regarding d/c plan. is requesting placement in a intermediate facility for short term rehab. Pt is hesitant about this plan due to a bad experience at [facility]. Pt has [employer] insurance which is contracted with only a few intermediate facilities in this area. Provided with list of facilities in the area with ratings provided. requested social studies teacher look for placement at [facility] or [facility] in [place]. Called both facilities. [facility] states they are currently full but may have a bed on Monday and requested social studies teacher call them Monday and fax information then if they have a bed. [facility] is also full but thinks they may have a bed Monday. Faxed information to [place] and awaiting call back regarding possible admit Monday. Updated pt's on bed availability. site worker to follow up as needed.
--- NOTE | 2022-02-18 15:15 | PC.SOCIAL ---
Addendum entered by JAYNA Swartz 02/18/22 15:47: Error Correction: Previous social work note was incomplete: Received call from [facility] stating they will not have a bed available for pt on Monday. Called [facility] and spoke with Natacha who requested information be sent for evaluation for possible bed Monday. They are not able to admit a patient today. Faxed information to the [facility]. Called [facility] and spoke with Shruti who states they may have a bed available Monday and will complete evaluation on Monday if placement is still needed. Currently there are no beds available in any of these [facility] contracted facilities. putty and patch worker to follow up on Monday. Original Note: Discharge plan: Received call back from [facility] stating they will not have a bed available on Monday. Called the [facility]. They do not and faxed information to the [facility].
[2022-02-18 17:08] LABS: Vitamin B12* > 1000 pg/mL (243-894)
[2022-02-18] MEDS: WARFARIN 5 MG TABLET PO (17:30)
--- NOTE | 2022-02-18 18:47 | PC.NURSE ---
End of Shift: Patient pleasant, cooperative, and particular. Patient is vitally stable, lungs clear, BS WNL, IV SL. Patient has rated pain at most 8/10, only scheduled tylenol given and new dose of fentanyl patch applied to right lower back. Patient is 1 assist, walker, gb to toilet or commode. Patient does not have much of an appetite but tolerating regular diet, urinating, and reported squirts of stool with some urinations. Patient is continent and incontinent at times, will be wet but also urinate in toilet.
[2022-02-18] MEDS: CALCITONIN SALMON NASAL SPRAY 200 UNIT 1 SPRAY NOSTRIL-B (21:34)
[2022-02-19] VITALS (8 sets, daily range): BP systolic 123–160; BP diastolic 62–95; PULSE 50–77; RESP 16–22; TEMP 36.6–37.1; O2SAT 95–99
[2022-02-19] MEDS: ACETAMINOPHEN 650 MG TABLET ER 1300 MG PO ×3 (02:39→20:25)
[2022-02-19] MEDS: LEVOTHYROXINE 100 MCG TABLET PO (05:11)
--- NOTE | 2022-02-19 06:14 | PC.NURSE ---
Shift 7p-7a: Pt. AO but forgetful at times, following commands, VSS on RA. Pt. ambulated to toilet several times this shift with Ax1 w/ RW and gait belt. Pt.'s pain managed with scheduled tylenol and fentanyl patch. Pt. tolerating ambulation/mobility more previous days, encouraged more mobility and independence in performing ADL's. Awaiting placement at short term rehab vs. assisted living at this time
[2022-02-19 07:31] LABS: Hematocrit 30.3 % (33.0-51.0); Hemoglobin* 9.9 gm/dL (12.0-16.0); Mean Corpuscular HGB Conc 33 gm/dL (32-36); Mean Corpuscular Hemoglobin 35 pg (26-34); Mean Corpuscular Volume 107 fL (80-100); Platelet Count* 137 K/uL (140-440); Red Blood Count 2.83 m/uL (4.00-5.20); White Blood Count* 4.84 K/uL (4.50-11.00)
[2022-02-19 07:34] LABS: Slide Review Reflex No
[2022-02-19 07:53] LABS: Chloride* 104 mmol/L (96-114); Potassium* 3.5 mmol/L (3.6-5.1); Sodium* 135 mmol/L (135-149)
[2022-02-19 07:54] LABS: INR 1.52 (0.91-1.10); Prothrombin Time 18.7 Seconds
[2022-02-19 07:56] LABS: Carbon Dioxide* 31 mmol/L (20-32); Creatinine* 0.9 mg/dL (0.5-1.5); Est. Creatinine Clearance* 40.83; Estimated Glomerular Filt Rate 67 ml/min
[2022-02-19 07:57] LABS: Blood Urea Nitrogen* 14 mg/dL (7-30); Calcium* 7.5 mg/dL (8.4-10.6); Glucose* 85 mg/dL (60-115); Magnesium* 1.9 mg/dL (1.5-2.6)
[2022-02-19 08:02] LABS: NT Pro B Type NatriureticPept* 2610 PG/mL (0-125)
[2022-02-19] MEDS: AMLODIPINE 5 MG TABLET PO (09:03)
[2022-02-19] MEDS: OMEPRAZOLE 20 MG CAPSULE DR 40 MG PO (09:03)
[2022-02-19] MEDS: ROSUVASTATIN CALCIUM 10 MG TABLET PO (09:03)
[2022-02-19] MEDS: FLUOXETINE HCL 20 MG CAPSULE PO (09:03)
[2022-02-19] MEDS: GABAPENTIN 100 MG CAPSULE 200 MG PO ×3 (09:04→20:26)
[2022-02-19] MEDS: LIDOCAINE 5% PATCH 1 PATCH TRANSDERMA (09:05)
[2022-02-19] MEDS: buPROPion XL 150 MG TABLET PO (09:05)
[2022-02-19] MEDS: CYANOCOBALAMIN (VITAMIN B-12) 500 MCG TABLET 1000 MCG PO (09:05)
[2022-02-19] MEDS: polyethylene glycoL 3350 17 GM PACK PO (09:05)
[2022-02-19] MEDS: FERROUS SULFATE 325 MG TABLET PO (09:05)
[2022-02-19] MEDS: METOPROLOL SUCCINATE (XL) 25 MG TAB PO (09:05)
[2022-02-19] MEDS: AMIODARONE 200 MG TABLET PO (09:05)
[2022-02-19] MEDS: PRIMIDONE 50 MG TABLET PO ×2 (12:16→20:24)
--- NOTE | 2022-02-19 15:16 | PM.IMPN1 ---
Progress Note: A&P Assessment and plan (1) Compression fracture of lumbar vertebra: Problem details: L3 and L4 compression fracture 01/05/2022 Status: Acute Assessment and Plan: Pain better controlled. Increased dose of gabapentin from 100 mg 3 times a day to 200 mg 3 times a day. Add lidocaine patch, on in the day and off at night. Continue with physical and occupational therapy. Continue with plans for transitional care services. (2) Spinal stenosis of lumbar region without neurogenic claudication: Problem details: Severe spinal stenosis at L3-4 with complete effacement of the thecal sac and moderate bilateral foraminal stenosis. Moderate spinal stenosis at L4-5 Status: Acute Assessment and Plan: Continue with fentanyl patch 25 mcg every 72 hours. (3) Pain crisis: Status: Acute Assessment and Plan: Better controlled. It seems like this is multifactorial including from confusion and polypharmacy. It seems she was using warfarin instead of analgesics. (4) Elevated INR: Status: Acute Assessment and Plan: Likely from misuse of warfarin. Continue monitor daily INR and warfarin doses appropriately. (5) Altered mental status: Status: Acute Assessment and Plan: Much improved. Improving. (6) Disability of walking: Status: Acute Assessment and Plan: Ambulating better today with support. (7) Chronic, continuous use of opioids: Status: Acute Assessment and Plan: Seemingly safer with fentanyl patch at this time. (8) Polypharmacy: Status: Acute Assessment and Plan: Will need to continue to address this. Should the patient return home in the near future would likely benefit from nursing support to set up her medications and monitor her use there of. (9) Hypokalemia: Status: Acute Assessment and Plan: Potassium supplementation. Monitor potassium. Plan Anticipate possible discharge as early as next week for transitional care services before she can return home. Patient agreeable. Answered patient's questions are satisfaction. Time Spent With Patient Total time spent: 30 minutes Subjective Time Seen by Provider: 07:30 Date Seen: 02/19/22 Interval history: Pain better controlled today, nevertheless still problematic. She recognizes that her thoughts are more coherent today than they had been in the past. She acknowledges she needs help beyond what she is capable of providing for herself in her home alone. Localizes the pain in the lumbar region of her back right side more so than left side. With help she is able to transfer and ambulate short distances. Denies nausea or vomiting. Eating and drinking. Denies chest heaviness, pressure, tightness, or pain. Denies syncope or near-syncope. Denies orthostasis. Denies dyspnea at rest or dyspnea with exertion. Exam Narrative: Exam Narrative: Awake. Appears uncomfortable. Able to speak coherently and in full sentences. Alert, oriented to self, place, time, and situation. Sometimes it takes her a while to respond. Appears anxious, appropriately. Mood and affect are congruent. Lungs clear to auscultation. Heart tones with regular rhythm. Abdomen with active bowel sounds. Moves all 4 extremities. Subjective discomfort to palpation on right paraspinal muscle region of her back. Const: Vital Signs, click to edit/add: Vital Signs - 24 hr 02/18/22 19:00 02/18/22 22:40 02/18/22 23:00 Temperature 98.6 F 98 F Pulse Rate [Right Pulse Oximeter] 52 L 52 L Respiratory Rate 16 16 16 Blood Pressure [Le ft Arm] 175/90 H 161/75 H Pulse Oximetry 98 97 02/19/22 02:49 02/19/22 07:00 02/19/22 08:14 Temperature 98 F 98.0 F Pulse Rate [Right Pulse Oximeter] 53 L 53 L 53 L Respiratory Rate 16 22 22 Blood Pressure [Le ft Arm] 146/72 H 152/88 H Pulse Oximetry 99 99 02/19/22 12:12 Temperature 98.1 F Pulse Rate [Right Pulse Oximeter] 50 L Respiratory Rate 18 Blood Pressure [Le ft Arm] 160/69 H Pulse Oximetry 97 Documenting provider has reviewed patient's vital signs: yes Labs Labs: Laboratory Results - last 24 hr 02/18/22 02/19/22 02/19/22 05:50 06:11 06:11 WBC 4.84 RBC 2.83 L Hgb 9.9 L Hct 30.3 L MCV 107 H MCH 35 H MCHC 33 Plt Count 137 L INR 1.52 H Sodium Potassium Chloride Carbon Dioxide BUN Creatinine Estimated Creat Clear Estimated GFR Glucose Calcium Magnesium C-Reactive Protein NT-Pro-B Natriuret Pep Vitamin B12 > 1000 H 02/19/22 06:11 WBC RBC Hgb Hct MCV MCH MCHC Plt Count INR Sodium 135 Potassium 3.5 L Chloride 104 Carbon Dioxide 31 BUN 14 Creatinine 0.9 Estimated Creat Clear 40.83 Estimated GFR 67 Glucose 85 Calcium 7.5 L Magnesium 1.9 C-Reactive Protein 6.0 H NT-Pro-B Natriuret Pep 2610 H Vitamin B12
[2022-02-19] MEDS: WARFARIN 5 MG TABLET 7.5 MG PO (16:28)
--- NOTE | 2022-02-19 18:35 | PC.NURSE ---
End of shift-- Pleasant and cooperative, alert and oriented, though occasionally anxious, patient. VSS and pt is afebrile. SPO2 maintained >94% on RA. Pt c/o pain in her lower back which she rated as high as 7 out of 10. MD was notified and lidocaine patch and increased dose of gabapentin were administered per Dr's orders. Pain appears well managed with that and scheduled Tylenol and an ice pack. She was up to the chair and BR with assist of 1, belt and walker and tolerated it fair. LS CTA. BS+ x4 and pt had 1x continent BM today. Hemoccult test was not performed because it was flushed in error. She denied nausea and ate 75% of a regular diet for 2 meals today. was at bedside today and appears loving and supportive. Report to oncoming shift.
[2022-02-19] MEDS: CALCITONIN SALMON NASAL SPRAY 200 UNIT 1 SPRAY NOSTRIL-B (20:25)
[2022-02-20] VITALS (8 sets, daily range): BP systolic 153–202; BP diastolic 71–92; PULSE 50–54; RESP 16–20; TEMP 36.6–36.8; O2SAT 95–100
[2022-02-20] MEDS: ACETAMINOPHEN 650 MG TABLET ER 1300 MG PO ×3 (02:40→21:15)
[2022-02-20] MEDS: LEVOTHYROXINE 100 MCG TABLET PO (06:18)
--- NOTE | 2022-02-20 06:44 | PC.NURSE ---
Alert and oriented x3. On room air. Vitals stable. Back pain managed with Tylenol, lidocaine and Fentanyl patches.Lots of pain with activity; denies pain while resting. Assist of one with ambulation using a walker with a gait belt. Ambulated on the the hallway and to the bathroom. Voided x3 overnight. No bowel movement overnight. Will continue to monitor and assess
[2022-02-20 07:14] LABS: Basophils Percent Auto 0.3 % (0.0-3.0); Eosinophils Percent Auto 1.6 % (0.0-7.0); Hematocrit 30.7 % (33.0-51.0); Hemoglobin* 9.8 gm/dL (12.0-16.0); Mean Corpuscular HGB Conc 32 gm/dL (32-36); Mean Corpuscular Hemoglobin 35 pg (26-34); Mean Corpuscular Volume 109 fL (80-100); Monocytes Percent Auto 10.9 % (0.0-11.0); Neutrophils Percent Auto 53.2 % (42.0-72.0); Platelet Count* 147 K/uL (140-440); Red Blood Count 2.81 m/uL (4.00-5.20); White Blood Count* 3.76 K/uL (4.50-11.00)
[2022-02-20 07:16] LABS: Slide Review Reflex No
[2022-02-20 07:38] LABS: Potassium* 3.5 mmol/L (3.6-5.1)
[2022-02-20 07:42] LABS: INR 1.99 (0.91-1.10)
[2022-02-20] MEDS: LIDOCAINE 5% PATCH 1 PATCH TRANSDERMA (08:39)
[2022-02-20] MEDS: OMEPRAZOLE 20 MG CAPSULE DR 40 MG PO (08:45)
[2022-02-20] MEDS: ROSUVASTATIN CALCIUM 10 MG TABLET PO (08:45)
[2022-02-20] MEDS: AMLODIPINE 5 MG TABLET PO (08:46)
[2022-02-20] MEDS: CYANOCOBALAMIN (VITAMIN B-12) 500 MCG TABLET 1000 MCG PO (08:46)
[2022-02-20] MEDS: buPROPion XL 150 MG TABLET PO (08:46)
[2022-02-20] MEDS: METOPROLOL SUCCINATE (XL) 25 MG TAB PO (08:47)
[2022-02-20] MEDS: GABAPENTIN 100 MG CAPSULE 200 MG PO ×3 (08:47→22:08)
[2022-02-20] MEDS: polyethylene glycoL 3350 17 GM PACK PO (08:48)
[2022-02-20] MEDS: AMIODARONE 200 MG TABLET PO (08:48)
[2022-02-20] MEDS: FLUOXETINE HCL 20 MG CAPSULE PO (08:48)
[2022-02-20] MEDS: FERROUS SULFATE 325 MG TABLET PO (08:48)
[2022-02-20] MEDS: POTASSIUM BICARB 25 MEQ EFFERVESCENT TAB PO ×3 (10:51→17:20)
[2022-02-20] MEDS: PRIMIDONE 50 MG TABLET PO (11:21)
--- NOTE | 2022-02-20 11:44 | PC.NURSE ---
Fentanyl patch-- This nurse has been unable to locate pt's fentanyl patch this morning. It was visualized yesterday afternoon, but is no longer in place this morning. Unsure if it was removed by patient or perhaps in error? was notified and staff will continue to search for it.
--- NOTE | 2022-02-20 14:37 | PM.IMPN1 ---
Progress Note: A&P Assessment and plan (1) Compression fracture of lumbar vertebra: Problem details: L3 and L4 compression fracture 01/05/2022 Status: Acute Assessment and Plan: Pain is much better controlled today on the regimen that we now have her on. Continue the same. (2) Spinal stenosis of lumbar region without neurogenic claudication: Problem details: Severe spinal stenosis at L3-4 with complete effacement of the thecal sac and moderate bilateral foraminal stenosis. Moderate spinal stenosis at L4-5 Status: Acute (3) Pain crisis: Status: Acute Assessment and Plan: Once again I believe that in great measure pain crisis that she presented in with is multifactorial. Cognition is impaired. It seems she is not able to problem solve well. Additionally in regard to her polypharmacy it seems like she was administering her medications improperly. In a supervised setting her pain crisis is now managed. Continue with current efforts. (4) Elevated INR: Status: Acute Assessment and Plan: Continue with monitoring and dosing of warfarin appropriately. (5) Altered mental status: Status: Acute Assessment and Plan: The acute change that she presented with is much improved. Seems to be at baseline. Still not quite able to problem solve appropriately. (6) Disability of walking: Status: Acute Assessment and Plan: Able to ambulate with walker and standby assist today. (7) Chronic, continuous use of opioids: Status: Acute Assessment and Plan: This is for her chronic pain syndrome. (8) Polypharmacy: Status: Acute Assessment and Plan: It appears patient needs help in managing her polypharmacy. (9) Hypokalemia: Status: Acute Assessment and Plan: Improved. Plan 1. Patient agrees that she needs at the very minimum temporary correction placement. It is possible that she might need permanent correction placement. Will work on this tomorrow, Monday, when correction staff are available to begin an effort to try to make such an arrangement. Time Spent With Patient Total time spent: 30 minutes Subjective Time Seen by Provider: 09:00 Date Seen: 02/20/22 Interval history: Pain better controlled today than yesterday, but still problematic. She again states that her thoughts are more coherent today than they had been in the past, however she states her thinking is still foggy. She acknowledges she needs help beyond what she is capable of providing for herself in her home alone. She notes on brady Espinoza that she needs residential facility care due to her decreasing abilities. Localizes the pain in the lumbar region of her back right side more so than left side. With help she is able to transfer and ambulate short distances. Took a shower. Able to stand by the sane can pressure teeth with standby support. Denies nausea or vomiting. Eating and drinking. Denies chest heaviness, pressure, tightness, or pain. Denies syncope or near-syncope. Denies orthostasis. Denies dyspnea at rest or dyspnea with exertion. Exam Narrative: Exam Narrative: No acute distress. More talkative today than yesterday. Alert, oriented to self, place, time, and situation. Less anxious today. Mood and affect are congruent. With standby assist is able to transfer from supine to sitting sitting to standing and with use of walker is able to ambulate as much as 20 ft. Lungs remain clear to auscultation. Heart tones with regular rhythm normal S1-S2. Abdomen with active bowel sounds soft, nontender. Extremities without edema. Skin warm, dry, intact. Const: Vital Signs, click to edit/add: Vital Signs - 24 hr 02/19/22 15:00 02/19/22 16:19 02/19/22 19:00 Temperature 98.8 F 98.1 F 97.8 F Pulse Rate [Right Pulse Oximeter] 57 L 77 Respiratory Rate 18 18 Blood Pressure [Le ft Arm] 146/62 H 123/95 H Pulse Oximetry 95 98 02/19/22 23:00 02/20/22 03:00 02/20/22 08:30 Temperature 97.8 F 97.8 F Pulse Rate [Right Pulse Oximeter] 50 L 50 L 51 L Respiratory Rate 18 16 16 Blood Pressure [Le ft Arm] 159/85 H 153/71 H Pulse Oximetry 98 98 02/20/22 09:11 02/20/22 12:43 Temperature 97.8 F 97.9 F Pulse Rate [Right Pulse Oximeter] 51 L 54 L Respiratory Rate 16 16 Blood Pressure [Le ft Arm] 163/83 H 168/78 H Pulse Oximetry 100 95 Documenting provider has reviewed patient's vital signs: yes Labs Labs: Laboratory Results - last 24 hr 02/20/22 02/20/22 02/20/22 06:18 06:18 06:18 WBC 3.76 L RBC 2.81 L Hgb 9.8 L Hct 30.7 L MCV 109 H MCH 35 H MCHC 32 RDW Coeff of Norma 15.0 Plt Count 147 Neut % (Auto) 53.2 Lymph % (Auto) 34.0 [place] % (Auto) 10.9 Eos % (Auto) 1.6 Baso % (Auto) 0.3 Neut # (Auto) 2.00 Lymph # (Auto) 1.30 [place] # (Auto) 0.40 Eos # (Auto) 0.10 Baso # (Auto) 0.00 Abs Immat Gran (auto) 0.00 INR 1.99 H Potassium 3.5 L
[2022-02-20] MEDS: fentaNYL 25 MCG/HR PATCH 1 PATCH TRANSDERMA (17:15)
[2022-02-20] MEDS: WARFARIN 5 MG TABLET PO (17:20)
--- NOTE | 2022-02-20 19:02 | PC.NURSE ---
End of shift-- Pleasant and cooperative, alert and oriented patient. VSS and pt is afebrile. SPO2 maintained >90% on RA. Pt has c/o back pain which she has rated as high as 7 out of 10 that appears to be fairly well managed with positioning, ice, scheduled Tylenol and Fentanyl. Unable to locate Fentanyl patch on patient today. MD and pharmacy were notified and Fentanyl patch was replaced on pt's right shoulder and covered with a tegaderm. LS CTA. BS+ x4 and pt is tolerating a regular diet with no difficulties. She was up to the BR and chair with assist of 1, belt and walker and tolerated it well. Report to DAGMAR George.
[2022-02-20] MEDS: CALCITONIN SALMON NASAL SPRAY 200 UNIT 1 SPRAY NOSTRIL-B (22:08)
[2022-02-21] VITALS (8 sets, daily range): BP systolic 159–177; BP diastolic 73–91; PULSE 50–54; RESP 16–18; TEMP 36.6–36.8; O2SAT 96–99
[2022-02-21] MEDS: PRIMIDONE 50 MG TABLET PO ×3 (00:03→23:08)
[2022-02-21 07:36] LABS: Basophils Percent Auto 0.5 % (0.0-3.0); Eosinophils Percent Auto 1.6 % (0.0-7.0); Hematocrit 32.6 % (33.0-51.0); Hemoglobin* 10.5 gm/dL (12.0-16.0); Immature Granulocytes Abs Auto 0.02 K/uL (0.00-0.30); Lymphocytes Percent Auto 34.2 % (20-44); Mean Corpuscular HGB Conc 32 gm/dL (32-36); Mean Corpuscular Hemoglobin 35 pg (26-34); Mean Corpuscular Volume 110 fL (80-100); Monocytes Percent Auto 9.6 % (0.0-11.0); Neutrophils Percent Auto 53.6 % (42.0-72.0); Platelet Count* 172 K/uL (140-440); RDW Coefficient of Variation % 15.1 % (11.5-15.5); Red Blood Count 2.97 m/uL (4.00-5.20); White Blood Count* 4.36 K/uL (4.50-11.00)
[2022-02-21 07:41] LABS: Slide Review Reflex No
--- NOTE | 2022-02-21 07:49 | PC.NURSE ---
Shift note: Pt ambulates with SBA and walker to the BR, pain 7-8/10 treated per eMAR with a little or no relief but pt was able to rest overnight.
[2022-02-21 07:51] LABS: Chloride* 107 mmol/L (96-114)
[2022-02-21 07:52] LABS: Potassium* 4.1 mmol/L (3.6-5.1); Sodium* 136 mmol/L (135-149)
[2022-02-21 07:53] LABS: INR 3.06 (0.91-1.10)
[2022-02-21 07:55] LABS: Blood Urea Nitrogen* 17 mg/dL (7-30); Calcium* 8.2 mg/dL (8.4-10.6); Carbon Dioxide* 28 mmol/L (20-32); Est. Creatinine Clearance* 40.83; Estimated Glomerular Filt Rate 59 ml/min; Glucose* 95 mg/dL (60-115); Phosphorus* 2.8 mg/dL (2.5-4.5)
[2022-02-21] MEDS: OMEPRAZOLE 20 MG CAPSULE DR 40 MG PO (09:09)
[2022-02-21] MEDS: FERROUS SULFATE 325 MG TABLET PO (09:10)
[2022-02-21] MEDS: METOPROLOL SUCCINATE (XL) 25 MG TAB PO (09:11)
[2022-02-21] MEDS: MAGNESIUM OXIDE 400 MG TABLET PO (09:11)
[2022-02-21] MEDS: FLUOXETINE HCL 20 MG CAPSULE PO (09:11)
[2022-02-21] MEDS: ASPIRIN 81 MG TAB.CHEW PO (09:11)
[2022-02-21] MEDS: LEVOTHYROXINE 100 MCG TABLET PO (09:11)
[2022-02-21] MEDS: AMIODARONE 200 MG TABLET PO (09:11)
[2022-02-21] MEDS: LIDOCAINE 5% PATCH 1 PATCH TRANSDERMA (09:13)
[2022-02-21] MEDS: buPROPion XL 150 MG TABLET PO (09:18)
[2022-02-21] MEDS: AMLODIPINE 5 MG TABLET PO (09:19)
[2022-02-21] MEDS: GABAPENTIN 100 MG CAPSULE 200 MG PO ×3 (09:19→20:30)
[2022-02-21] MEDS: CYANOCOBALAMIN (VITAMIN B-12) 500 MCG TABLET 1000 MCG PO (09:26)
[2022-02-21] MEDS: ROSUVASTATIN CALCIUM 10 MG TABLET PO (09:26)
[2022-02-21] MEDS: ACETAMINOPHEN 650 MG TABLET ER 1300 MG PO ×2 (10:50→19:35)
--- NOTE | 2022-02-21 11:06 | PC.SOCIAL ---
Pt. has been accepted to [facility] then they called back and said they no longer are accepting [employer] insurance. Updated pt.'s son George and left a message for spouse. [facility] has a bed and is assessing.
--- NOTE | 2022-02-21 14:49 | PC.NURSE ---
Pt evaluated by OT, PT, Dr. Tellez and myself on day shift. Pt has intermittent pain flares. She continues to be on scheduled tylenol ES and had her Lidoderm patch placed on her right lower back. RN called report to [facility] at 1035 am for planned d/c, however the facility would not accept pt's insurance. phlebotomy services representative currently working on SNF placement, possible LT[facility] tomorrow. This afternoon pt and her family are thinking they may be able to manage at home if they can get a bedside commode. Pt's Morphine IR is on permanent hold per Dr. Tellez. Pt had AMS on admission which has improved w/o that narcotic. Pt is requesting Tylenol at shift change. It is too soon for scheduled dose at this time. Report to oncoming shift.
--- NOTE | 2022-02-21 15:44 | P.IMPN_ITS ---
Progress Note: A&P Assessment and plan (1) Compression fracture of lumbar vertebra: Problem details: L3 and L4 compression fracture 01/05/2022 Status: Acute Assessment and Plan: Pain much better control. (2) Spinal stenosis of lumbar region without neurogenic claudication: Problem details: Severe spinal stenosis at L3-4 with complete effacement of the thecal sac and moderate bilateral foraminal stenosis. Moderate spinal stenosis at L4-5 Status: Acute Assessment and Plan: Pain much better controlled. (3) Pain crisis: Status: Acute Assessment and Plan: Presented and pain crisis. Now managed. (4) Elevated INR: Status: Acute Assessment and Plan: Much improved. (5) Altered mental status: Status: Acute Assessment and Plan: Insofar as were able to tell this is resolved. Patient states she is back to baseline. (6) Disability of walking: Status: Acute Assessment and Plan: Ambulating the halls of hospital with use of walker and standby assist. (7) Chronic, continuous use of opioids: Status: Acute Assessment and Plan: We modified her medication regimen substantially and she is doing well on it. (8) Polypharmacy: Status: Acute Assessment and Plan: Will need home health services and support. (9) Hypokalemia: Status: Acute Assessment and Plan: Improved. Plan Possible discharge home as early as tomorrow she continues to do well. Subjective Time Seen by Provider: 10:00 Date Seen: 02/21/22 Interval history: Pain even better controlled today than yesterday, but still problematic. Dari ocalizes the pain in the lumbar region of her back right side more so than left side. She notes that when she lays on her side she feels much less pain in his rather comfortable. She states that her thoughts are more coherent today than they had been in the past, that she is no longer foggy. She is actually thinking that she can return home as early as tomorrow. She notes after conferring with her family that she does not think she requires residential placement any longer. Today she is walking throughout the halls in the hospital with the use of walker. Denies nausea or vomiting. Eating and drinking. Denies chest heaviness, pressure, tightness, or pain. Denies syncope or near-syncope. Denies orthostasis. Denies dyspnea at rest or dyspnea with exertion. Exam Narrative: Exam Narrative: Alert, articulate, cooperative. Oriented to self, place, time, situation. Engages in meaningful conversation. No acute distress. Appears comfortable. Not nearly as anxious as previously. Lungs clear to auscultation. Heart tones with regular rhythm. Abdomen benign. Extremities without edema. Skin warm dry and intact. No focal motor neurologic deficits. Const: Vital Signs, click to edit/add: Vital Signs - 24 hr 02/20/22 16:19 02/20/22 20:00 02/21/22 00:00 Temperature 98.3 F Pulse Rate [Right Pulse Oximeter] 53 L Respiratory Rate 20 18 Blood Pressure [Le ft Arm] 186/79 H 156/75 H Pulse Oximetry 98 98 Oxygen Delivery Me thod Room Air Room Air 02/21/22 04:00 02/21/22 07:15 02/21/22 11:00 Temperature 98.2 F 98.1 F 97.9 F Pulse Rate [Right Pulse Oximeter] 53 L 50 L 54 L Respiratory Rate 18 16 18 Blood Pressure [Le ft Arm] 167/73 H 159/79 H 170/82 H Pulse Oximetry 99 98 96 Oxygen Delivery Me thod Room Air Room Air Room Air Documenting provider has reviewed patient's vital signs: yes Labs Labs: Laboratory Results - last 24 hr 02/21/22 02/21/22 02/21/22 06:58 06:58 06:58 WBC 4.36 L RBC 2.97 L Hgb 10.5 L Hct 32.6 L MCV 110 H MCH 35 H MCHC 32 RDW Coeff of Norma 15.1 Plt Count 172 Neut % (Auto) 53.6 Lymph % (Auto) 34.2 [place] % (Auto) 9.6 Eos % (Auto) 1.6 Baso % (Auto) 0.5 Neut # (Auto) 2.30 Lymph # (Auto) 1.50 [place] # (Auto) 0.40 Eos # (Auto) 0.10 Baso # (Auto) 0.00 Abs Immat Gran (auto) 0.02 INR 3.06 H Sodium 136 Potassium 4.1 Chloride 107 Carbon Dioxide 28 BUN 17 Creatinine 1.0 Estimated Creat Clear 40.83 Estimated GFR 59 Glucose 95 Calcium 8.2 L Phosphorus 2.8 Albumin 3.0 L
[2022-02-21] MEDS: WARFARIN 5 MG TABLET PO (16:30)
--- NOTE | 2022-02-21 17:47 | PC.NURSE ---
Shift Summary 15-19: Patient pleasant and cooeprative. Continues to be one assist, walker and gait belt. Rates pain 4/10, appears comfortable in bed. Vitals stable.
[2022-02-21 19:07] LABS: Folate, Serum 7.7 ng/mL (>=5.9)
[2022-02-21] MEDS: CALCITONIN SALMON NASAL SPRAY 200 UNIT 1 SPRAY NOSTRIL-B (20:30)
[2022-02-22] MEDS: ACETAMINOPHEN 650 MG TABLET ER 1300 MG PO ×2 (02:47→11:18)
[2022-02-22 02:56] VITALS: BP 158/80; PULSE 51; RESP 16; TEMP 36.6; O2SAT 98
[2022-02-22] MEDS: LEVOTHYROXINE 100 MCG TABLET PO (05:28)
--- NOTE | 2022-02-22 05:59 | PC.NURSE ---
Shift 7p-7a: Pt. AOx4, following commands, VSS on RA. Pt.'s pain 09/30, well controlled with scheduled tylenol fentanyl patch. Pt. SBA w/ RW, pt. stated she would like to perform own ADL's and ambulation. Pt. steady on her feet, tolerating ambulation to toilet and in room. Pt. voiding w/o difficulties. Plan for SNF vs. discharge home per
[2022-02-22 07:00] VITALS: BP 149/83; PULSE 54; RESP 16; TEMP 36.6; O2SAT 98
[2022-02-22] MEDS: LIDOCAINE 5% PATCH 1 PATCH TRANSDERMA (08:27)
[2022-02-22] MEDS: AMIODARONE 200 MG TABLET PO (08:31)
[2022-02-22] MEDS: buPROPion XL 150 MG TABLET PO (08:31)
[2022-02-22] MEDS: GABAPENTIN 100 MG CAPSULE 200 MG PO (08:31)
[2022-02-22] MEDS: FLUOXETINE HCL 20 MG CAPSULE PO (08:31)
[2022-02-22] MEDS: CYANOCOBALAMIN (VITAMIN B-12) 500 MCG TABLET 1000 MCG PO (08:31)
[2022-02-22] MEDS: AMLODIPINE 5 MG TABLET PO (08:31)
[2022-02-22] MEDS: ASPIRIN 81 MG TAB.CHEW PO (08:31)
[2022-02-22] MEDS: OMEPRAZOLE 20 MG CAPSULE DR 40 MG PO (08:31)
[2022-02-22] MEDS: FERROUS SULFATE 325 MG TABLET PO (08:32)
[2022-02-22] MEDS: METOPROLOL SUCCINATE (XL) 25 MG TAB PO (08:32)
[2022-02-22] MEDS: ROSUVASTATIN CALCIUM 10 MG TABLET PO (08:32)
[2022-02-22] MEDS: MAGNESIUM OXIDE 400 MG TABLET PO (08:33)
--- NOTE | 2022-02-22 10:42 | PC.SOCIAL ---
Pt. will discharge home today with [facility] for PT,OT, and nursing rather than go to the [facility] due to needing to isolate for 10 days since pt. has had only one vaccine for COVID and does not want additional.
[2022-02-22] MEDS: PRIMIDONE 50 MG TABLET PO (11:18)
--- NOTE | 2022-02-22 11:58 | PC.NURSE ---
PATIENT DISCHARGED TO HOME WITH AROUND 1155, PATIENT AND VERBALIZED UNDERSTANDING OF DISCHARGE INFORMATION, ALL QUESTIONS ANSWERED, IV REMOVED, BELONGINGS SENT WITH PATIENT, UP SBA WITH WALKER AND BELT TOLERATING WELL, REPORTING PAIN IN LOWER BACK 01/30 THIS MORNING SCHEDULED MEDICATION GIVEN WITH RELIEF, TOLERATING REGULAR DIET, PATIENT ALERT AND ORIENTED BUT FORGETFUL.
--- NOTE | 2022-02-22 13:24 | P.DS_ITS ---
DS: Providers Provider Time Seen by Provider: 09:00 Date Seen: 02/22/22 Date of admission: 02/18/22 15:12 Primary care physician: Luis Ryan MD Admitting Clinician: Chema Kirk MD Consults: 02/16/22 22:58 Consult to Physical Therapy [CONS] Routine Comment: Reason(s) for PT Consult:: Evaluate Ambulation Any Restrictions?:: No Restrictions Consult to [facility] [CONS] Routine Comment: Reason for Consult:: Discharge Planning Needs 02/16/22 22:59 Consult to Occupational Therapy [CONS] Routine Comment: Reason(s) for OT Consult:: Evaluate and Treat Any Restrictions?:: No Restrictions Attending Physician on discharge: Perry Tellez MD Date of Discharge: 02/22/22 DS: Diagnosis Discharge Diagnosis (1) Pain crisis: Status: Acute (2) Compression fracture of L4 vertebra: Status: Acute Problem details: 01/05/2022, 20% loss of height (3) Compression fracture of lumbar vertebra: Status: Acute Problem details: L3 and L4 compression fracture 01/05/2022 (4) Spinal stenosis of lumbar region without neurogenic claudication: Status: Acute Problem details: Severe spinal stenosis at L3-4 with complete effacement of the thecal sac and moderate bilateral foraminal stenosis. 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 Patient appears to be somewhat sedated and has a hard time recalling recent events.? After some effort the following recent history is obtained: Patient fell on about January 01 and was seen in our emergency room January 05 where she was diagnosed with L4 and L3 compression fractures as well as spinal stenosis and multilevel bilateral foraminal stenosis of her lumbar spine.? She was discharged to home with her and reports it was difficult but she was able to manage.? She had outpatient back clinic follow-up as well as follow up with her primary care provider.? She thinks her back is getting better.? She recalls that her initial back pain was on the left side primarily and that her pain now is on the right side and seems different to her.? In reviewing notes from the emergency department and clinic visit it sounds like symptoms have been on both sides.? is now complaining because she is having increasing right groin pain.? She is not aware of a new injury.? She has not had a fever.? She reports is quite difficult for her to walk and nurses in the emergency department say that she cannot get up without assistance.? Evaluation in the clinic as well as in the emergency room shows no new neurologic deficits on physical examination. Patient has been on MS Contin 15 mg b.i.d. and gabapentin 600 mg 3 times a day for managing her pain.? She was apparently also treated with calcitonin nasal spray at some point but this is apparently been stopped.? She had a trial of steroids at some point as well probably not on that any longer.? Patient does not know any of her current medications by name or dose or purpose.? She is not having bowel incontinence.? She has had some constipation and uses some form of laxative occasionally for that.? She does not have any numbness in or legs or feet. Her presentation is certainly complex to say the least. Based on what we were able to ascertain from her and her it appears as though patient was not taking her medications as prescribed. It seems as though she was taking warfarin as if though it was not opioid analgesics. Additionally it seems as though she was possibly not taking her opioids for analgesia. Hence it appears that there was a misunderstanding or confused state that snow balled into her presentation. We did take away her morphine orally. We switched her to fenta nyl transdermal patch. We added a lidocaine patch. We decreased the dose of her gabapentin. We scheduled acetaminophen. Over the course of her short time in the hospital her pain was under much better control. With better pain control she was able to ambulate once again. For awhile we had been considering halfway placement which patient and family were agreeable to. As her condition improved however it became apparent that she could in fact return home with proper family support as well as other support for which we have set up in the outpatient setting. We remain concerned about her problem-solving ability. It appears as though she is having loss of executive function and not able to problem solve safely. Patient family agreeable to home care support at this juncture. Will initiate with nursing and eventually had physical therapy and occupational therapy. On presentation her INR was 2. The very next day was 12. Once again we postulate that she was taking warfarin as if though it was analgesics. We believe that she was taking her warfarin inappropriately. We were able to initiate normalization of this effort while she was in the hospital. Will require follow-up. Anticoagulation INR goal is 2-3. Status at Discharge Functional status at discharge: uses cane/walker Overall status at discharge: patient is progressing back to baseline Time Spent with Patient Time attestation: Total time spent providing and/or coordinating discharge services: Time spent: Greater than 30 minutes Exam Narrative: Exam Narrative: Alert, articulate, cooperative.? Oriented to self, place, time, situation.? Engages in meaningful conversation. No acute distress.? Appears comfortable.? Not nearly as anxious as previously. Lungs clear to auscultation.? Heart tones with regular rhythm.? Abdomen benign.? Extremities without edema.? Skin warm dry and intact.? No focal motor neurologic deficits. Does walk with antalgia. Able to transfer independently, slowly, from bed to standing. Able to stand and pressure teeth at the sink. Does use walker. Walking in the halls with standby assist. Const: Vital Signs, click to edit/add: Vital Signs - 24 hr 02/21/22 16:55 02/21/22 19:00 02/21/22 22:35 Temperature 98 F 98.1 F Pulse Rate [Right Pulse Oximeter] 52 L 51 L 52 L Respiratory Rate 16 16 16 Blood Pressure [Le ft Arm] 162/91 H 164/78 H Pulse Oximetry 98 97 Oxygen Delivery Me thod Room Air Room Air 02/21/22 23:00 02/22/22 02:56 02/22/22 07:00 Temperature 98.2 F 97.9 F Pulse Rate [Right Pulse Oximeter] 52 L 51 L 54 L Respiratory Rate 16 16 16 Blood Pressure [Le ft Arm] 177/74 H 158/80 H Pulse Oximetry 97 98 Oxygen Delivery Me thod Room Air Room Air 02/22/22 07:00 Temperature 97.8 F Pulse Rate [Right Pulse Oximeter] 54 L Respiratory Rate 16 Blood Pressure [Le ft Arm] 149/83 H Pulse Oximetry 98 Oxygen Delivery Me thod Room Air Documenting provider has reviewed patient's vital signs: yes DS: Data Data Completed and Pending Labs on day of discharge: Labs from last 24 hours 02/18/22 05:50 RBC Fol Lawson for Serum 7.7 Imaging Hip x-ray: Attestation: I have reviewed the pertinent imaging results. My impression: No acute bony abnormalities. Radiologist's impression: 1. No acute osseous injuries or abnormalities are noted. Discharge Plan Discharge Disposition: Home Health Service Date of Admission: 02/18/22 15:12 Attending Provider on Discharge: Perry Tellez Primary Care Provider: Luis Ryan Condition: Improved Anticipated Discharge Date/Time: 02/22/22 11:30 Discharge Medications: New metoprolol succinate 25 mg Tablet Extended Release 24 Hr 25 mg PO DAILY 30 Days Qty: 30 1RF gabapentin 300 mg capsule 300 mg PO TID Qty: 90 2RF calcitonin (salmon) 200 unit/actuation [place],Non-Aerosol 1 spray intranasal HS 30 Days Qty: 0 1RF magnesium oxide 400 mg (241.3 mg magnesium) Tablet 400 mg PO DAILY 30 Days Qty: 30 1RF lidocaine 5 % Adhesive Patch,Medicated 1 patch transdermal Q24H 30 Days Qty: 10 2RF fentanyl 25 mcg/hr Patch 72 Hour 1 patch transdermal Q72H 15 Days Qty: 5 0RF acetaminophen 325 mg capsule 650 mg PO QID Qty: 200 1RF hydroxyzine HCl 25 mg tablet 25 mg PO TID PRN (Reason: pain) Qty: 20 1RF Continued amlodipine 5 mg tablet 5 mg PO DAILY Rx Instructions: to replace lisinopril/hctz blood pressure medication warfarin 5 mg tablet 5 - 7.5 mg PO DAILY Label Comments: Take 7.5mg (5mg x 1.5) every Mon, Sat; 5mg (5mg x 1) all other days in the evening primidone 50 mg tablet 150 mg PO DAILY polyethylene glycol 3350 17 gram/dose powder 17 g PO DAILY PRN pantoprazole 40 mg tablet,delayed release (DR/EC) 40 mg PO DAILY cholecalciferol (vitamin D3) 125 mcg (5,000 unit) tablet 5,000 unit PO DAILY bupropion HCl 150 mg tablet extended release 24 hr 150 mg PO DAILY rosuvastatin 10 mg tablet 10 mg PO DAILY fluoxetine 20 mg capsule 20 mg PO DAILY ferrous sulfate 325 mg (65 mg iron) tablet 325 mg PO DAILY levothyroxine 100 mcg tablet 100 mcg PO DAILY cyanocobalamin (vitamin B-12) 1,000 mcg tablet 1,000 mcg PO DAILY alendronate 70 mg tablet 70 mg PO Q7D Label Comments: TAKE 1 TAB BY MOUTH ONCE WEEKLY IN THE MORNING ON EMPTY STOMACH W/ 8 OZ WATER STAY UPRIGHT FOR 1 HR amiodarone 200 mg tablet 200 mg PO DAILY Label Comments: TAKE 1 TABLET BY MOUTH EVERY DAY furosemide 40 mg tablet 40 mg PO DAILY PRN Label Comments: TAKE 1 TABLET BY MOUTH IN THE MORNING NEEDED FOR SWELLING aspirin 81 mg tablet,chewable 81 mg PO DAILY magnesium oxide 400 mg magnesium capsule 400 mg PO DAILY Discontinued gabapentin 300 mg capsule 600 mg PO TID metoprolol succinate 50 mg tablet extended release 24 hr 50 mg PO DAILY metoprolol succinate 25 mg tablet extended release 24 hr 50 mg PO DAILY morphine 15 mg tablet extended release 15 mg PO Q12H Label Comments: TAKE 1 TABLET (15 MG) BY MOUTH IN THE MORNING AND 1 TABLET (15 MG) IN THE EVENING. Discharge Orders: Discharge Order (Routine); Ordered 02/22/22 Ordered By: Perry Tellez Patient Education: Metoprolol (By mouth), Acetaminophen (By mouth), Hydroxyzine (By mouth) (Vistaril), Fentanyl (Absorbed through the skin) (Duragesic, Ionsys, Novaplus..., Gabapentin (By mouth), Magnesium Oxide (By mouth) (Mag-Ox 400, [facility]..., Lidocaine Patch (On the skin) (Lidoderm, Novaplus Lidocaine), Vertebral Compression Fracture (GEN) Activity Restrictions/Additional Instructions: 1. Home Health referral: Nursing for medicine management (polypharmacy) and weekly PT/INR monitoring and adjustment of warfarin therapy to maintain INR in therapeutic range of 2-3; home PT and OT to assess and treat; home safety assessment; 2. follow-up with primary care physician in 1-2 weeks. Activity Level: Activity as Tolerated and Use Walker Discharge Diet: Regular Follow Up Appointments: Luis Ryan MD [Primary Care Provider] - 03/04/22 12:55 pm Forms: BzzAgent Info Instructions Hospital Course: Kendra Steel is a 76 year old female admitted through the emergency department with low back pain, right groin and leg pain.? Patient appears to be somewhat sedated and has a hard time recalling recent events.? After some effort the following recent history is obtained: Patient fell on about January 01 and was seen in our emergency room January 05 where she was diagnosed with L4 and L3 compression fractures as well as spinal stenosis and multilevel bilateral foraminal stenosis of her lumbar spine.? She was discharged to home with her and reports it was difficult but she was able to manage.? She had outpatient back clinic follow-up as well as follow up with her primary care provider.? She thinks her back is getting better.? She recalls that her initial back pain was on the left side primarily and that her pain now is on the right side and seems different to her.? In reviewing notes from the emergency department and clinic visit it sounds like symptoms have been on both sides.? is now complaining because she is having increasing right groin pain.? She is not aware of a new injury.? She has not had a fever.? She reports is quite difficult for her to walk and nurses in the emergency department say that she cannot get up without assistance.? Evaluation in the clinic as well as in the emergency room shows no new neurologic deficits on physical examination. Patient has been on MS Contin 15 mg b.i.d. and gabapentin 600 mg 3 times a day for managing her pain.? She was apparently also treated with calcitonin nasal spray at some point but this is apparently been stopped.? She had a trial of steroids at some point as well probably not on that any longer.? Patient does not know any of her current medications by name or dose or purpose.? She is not having bowel incontinence.? She has had some constipation and uses some form of laxative occasionally for that.? She does not have any numbness in or legs or f eet. Her presentation is certainly complex to say the least. Based on what we were able to ascertain from her and her it appears as though patient was not taking her medications as prescribed. It seems as though she was taking warfarin as if though it was not opioid analgesics. Additionally it seems as though she was possibly not taking her opioids for analgesia. Hence it appears that there was a misunderstanding or confused state that snow balled into her presentation. We did take away her morphine orally. We switched her to fentanyl transdermal patch. We added a lidocaine patch. We decreased the dose of her gabapentin. We scheduled acetaminophen. Over the course of her short time in the hospital her pain was under much better control. With better pain control she was able to ambulate once again. For awhile we had been considering halfway placement which patient and family were agreeable to. As her condition improved however it became apparent that she could in fact return home with proper family support as well as other support for which we have set up in the outpatient setting. We remain concerned about her problem-solving ability. It appears as though she is having loss of executive function and not able to problem solve safely. Patient family agreeable to home care support at this juncture. Will initiate with nursing and eventually had physical therapy and occupational therapy. On presentation her INR was 2. The very next day was 12. Once again we postulate that she was taking warfarin as if though it was analgesics. We believe that she was taking her warfarin inappropriately. We were able to initiate normalization of this effort while she was in the hospital. Will require follow-up. Anticoagulation INR goal is 2-3.
== END 2022-02-22 11:55 | disposition home health service (06) | DRG 552 ==
LOC: ED 21:40 → MEDSURG 22:32
PROVIDERS: Family Medicine; Internal Medicine; Admitting Provider Family Medicine; Emergency Provider Family Medicine; PCP Family Medicine; Visit Provider Family Medicine
DX: M54.16 Radiculopathy, lumbar region (principal); M48.061 Spinal stenosis, lumbar region without neurogenic claudication; S32.030D Wedge compression fracture of third lumbar vertebra, subsequent encounter for fracture with routine healing; S32.040D Wedge compression fracture of fourth lumbar vertebra, subsequent encounter for fracture with routine healing; J44.9 Chronic obstructive pulmonary disease, unspecified; E87.6 Hypokalemia; M81.0 Age-related osteoporosis without current pathological fracture; F32.A Depression, unspecified; E03.9 Hypothyroidism, unspecified; I48.0 Paroxysmal atrial fibrillation; Z79.01 Long term (current) use of anticoagulants; E78.5 Hyperlipidemia, unspecified; F41.0 Panic disorder [episodic paroxysmal anxiety]; Z87.891 Personal history of nicotine dependence; I12.9 Hypertensive chronic kidney disease with stage 1 through stage 4 chronic kidney disease, or unspecified chronic kidney disease; N18.30 Chronic kidney disease, stage 3 unspecified; R41.82 Altered mental status, unspecified; Z79.891 Long term (current) use of opiate analgesic; R00.1 Bradycardia, unspecified; T44.7X5A Adverse effect of beta-adrenoreceptor antagonists, initial encounter; G89.4 Chronic pain syndrome; Z91.14 Patient's other noncompliance with medication regimen; R10.30 Lower abdominal pain, unspecified
CPT/HCPCS: 36415; 73502; 80048; 80053; 80069; 80306; 81003; 82077; 82607; 82746; 82803; 83735; 83880; 84132; 84443; 85025; 85027; 85379; 85610; 86140; 87635; 97110; 97116; 97162; 97165; 97530; 97535; 99284; A9270; G0378; G0379; J1170; J1885; J3430

== ENCOUNTER 2022-03-02 13:37 | Outpatient (REF) | payer OTHER, SELFPAY ==
[2022-03-02 15:29] LABS: INR 4.87 (0.91-1.10); Prothrombin Time 45.5 Seconds
== END 2022-03-02 13:38 | disposition home or self-care (01) ==
LOC: NPINS 13:37
PROVIDERS: PCP Family Medicine; Visit Provider Family Medicine
DX: I48.91 Unspecified atrial fibrillation (principal)
CPT/HCPCS: 85610

== ENCOUNTER 2022-03-08 18:07 | Emergency (ER) | payer OTHER, SELFPAY ==
[2022-03-08 18:14] VITALS: BP 163/76; PULSE 51; RESP 18; TEMP 37.1; O2SAT 98; BMI 26.5
--- NOTE | 2022-03-08 20:09 | ED.NURSE ---
pt departed after registration before getting dc paperwork.
--- NOTE | 2022-03-08 22:31 | ED.GENADULT ---
HPI - General Adult General Date Seen: 03/08/22 Chief complaint: Laceration/Wound Stated complaint: INJURED TONGUE FROM BITE,WON'T STOP BLEEDING Time Seen by Provider: 03/08/22 18:31 Source: patient History of Present Illness HPI narrative: Patient is a 76-year-old woman who tripped and fell, hitting her forehead on the ground and also injuring her left wrist. She did not have loss of consciousness although she does have a headache. Her glasses hit her face and she has a small cut by her left eyebrow. She does not have any visual complaints. No ocular pain or other facial pain. She denies neck pain now although she says she did have some pain at the base of her neck earlier. She does not have any chest pain or difficulty breathing, no back or abdominal pain. She complains mostly of pain in the left wrist and hand. She notes bruising and swelling there. No numbness or tingling. She does not have any pain in the right hand. She notes spot that is a little sort of pushed on her left shoulder but she has free range of motion of the left shoulder. She does not have any pain in the left elbow. She says that she has walked without difficulty, she notes that she checked her knees and there was no bruising or scrapes there. Her hips do not hurt. She denies any anticoagulants. Related Data Home Medications Medication Instructions Recorded Confirmed amlodipine 5 mg tablet 5 mg PO DAILY 01/26/22 02/16/22 bupropion HCl 150 mg 24 hr tablet, 150 mg PO DAILY 01/26/22 02/16/22 extended release cholecalciferol (vitamin D3) 125 5,000 unit PO DAILY 01/26/22 02/16/22 mcg (5,000 unit) tablet cyanocobalamin (vitamin B-12) 1,000 mcg PO DAILY 01/26/22 02/16/22 1,000 mcg tablet ferrous sulfate 325 mg (65 mg 325 mg PO DAILY 01/26/22 02/16/22 iron) tablet fluoxetine 20 mg capsule 20 mg PO DAILY 01/26/22 02/16/22 levothyroxine 100 mcg tablet 100 mcg PO DAILY 01/26/22 02/16/22 pantoprazole 40 mg tablet,delayed 40 mg PO DAILY 01/26/22 02/16/22 release polyethylene glycol 3350 17 17 g PO DAILY PRN 01/26/22 02/16/22 gram/dose oral powder primidone 50 mg tablet 150 mg PO DAILY 01/26/22 02/19/22 rosuvastatin 10 mg tablet 10 mg PO DAILY 01/26/22 02/16/22 warfarin 5 mg tablet 5 - 7.5 mg PO DAILY 01/26/22 02/17/22 alendronate 70 mg tablet 70 mg PO Q7D 02/16/22 02/17/22 amiodarone 200 mg tablet 200 mg PO DAILY 02/16/22 02/16/22 furosemide 40 mg tablet 40 mg PO DAILY PRN 02/16/22 02/16/22 aspirin 81 mg chewable tablet 81 mg PO DAILY 02/17/22 02/17/22 magnesium oxide 400 mg PO DAILY 02/19/22 02/19/22 Previous Rx's Medication Instructions Recorded acetaminophen 325 mg capsule 650 mg PO QID #200 caps 02/22/22 calcitonin (salmon) 200 1 spray intranasal HS 30 days #0 mL 02/22/22 unit/actuation nasal spray fentanyl 25 mcg/hr transdermal 1 patch transdermal Q72H 15 days 02/22/22 patch #5 ea gabapentin 300 mg capsule 300 mg PO TID #90 caps 02/22/22 hydroxyzine HCl 25 mg tablet 25 mg PO TID PRN pain #20 tabs 02/22/22 lidocaine 5 % topical patch 1 patch transdermal Q24H 30 days 02/22/22 #10 ea magnesium oxide 400 mg (241.3 mg 400 mg PO DAILY 30 days #30 tabs 02/22/22 magnesium) tablet metoprolol succinate 25 mg 25 mg PO DAILY 30 days #30 tabs 02/22/22 tablet,extended release 24 hr Allergies Allergy/AdvReac Type Severity Reaction Status Date / Time pneumococcal vaccine Allergy Severe Anaphylaxis Verified 02/16/22 20:25 [From Prevnar 13 (PF)] prednisone Allergy Mild Rash Verified 02/16/22 20:26 Influenza A virus Allergy Severe Anaphylaxis Uncoded 02/16/22 20:25 Review of Systems Status of ROS: Reports: 10 or more systems reviewed and unremarkable except as noted in History and below [facility] Medical History Altered mental status Anemia Chronic anticoagulation Compression fracture of lumbar vertebra COPD (chronic obstructive pulmonary disease) Depression Disability of walking Hiatal hernia History of alcoholism Hyperlipidemia Hypothyroidism Lumbar radicular pain Osteoporosis Panic disorder Paroxysmal atrial fibrillation Polypharmacy Restrictive pericarditis Right groin pain Spinal stenosis Stage 3 chronic kidney disease Thyroid disease Tremors of nervous system Vitamin B12 deficiency Surgical History History of repair of hiatal hernia 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 is healthcare power of personal injury attorney. Code status is DNR. She is a former cigarette smoker. Formally had a problem with alcohol abuse. She is unable to tell me today if she is still drinking and when she last had something to drink. She does not use recreational drugs. Highest level of school completed/degree received: high school graduate Smoking Status: Former smoker What tobacco products do you use: cigarettes Smoking quit date/years: <= 15 years ago Do you use any of these nicotine containing products: None Second hand tobacco smoke exposure: No How often do you have a drink containing alcohol: monthly or less Alcohol type: wine AUDIT-C Alcohol total score: 1 Non-prescribed substance use: denies use Caffeine: Yes service: No Exam Narrative: Exam Narrative: Vital signs as noted above. In general, an alert, nontoxic elderly woman. Head: Normocephalic Eyes: Pupils are equal reactive. Extraocular movements are full. Conjunctivae are normal. ENT: Mucous membranes are moist. No bony tenderness. 1 cm laceration by the left brow ridge. Tiny couple mm laceration adjacent to that. Jaw nontender. Neck: Supple without lymphadenopathy. Nontender to palpation. Heart: Regular rate and rhythm. No murmur or rub. Lungs: Clear bilaterally. No increased work of breathing, crackles or wheezes. Chest nontender. Abdomen: Soft and nontender. No organomegaly. Back: Nontender to palpation. Extremities: Well perfused. Pulses intact. She has tenderness of the left wrist, positive snuffbox tenderness. Bruising and tenderness of the dorsum of the left hand. Distal CMS normal. Elbow and shoulder show free range of motion. No deformity. She has a little tenderness to palpation of the shoulder anteriorly but moves his shoulder without any difficulty at all. Neurologic: Patient is alert and oriented to person and place. Speech is fluent. Face is symmetric. Moves all extremities equally. Affect: Normal. Skin: Warm and dry. Well perfused. Const: Vital Signs, click to edit/add: Vital Signs - 24 hr 03/08/22 18:14 Temperature 98.7 F Pulse Rate [Right Pulse Oximeter] 51 L Respiratory Rate 18 Blood Pressure [Ri ght Upper Arm] 163/76 H Pulse Oximetry 98 Oxygen Delivery Me thod Room Air Documenting provider has reviewed patient's vital signs: yes Course Course Hospital Course: Following initial evaluation, I sent her for a CT of the head as well as the cervical spine. By my review, CT of the head does not show any intracranial hemorrhage. Final radiology report is likewise negative. Review of the cervical spine is negative for acute bony abnormalities. She had x-rays of her left wrist as well as her left hand. There is a report from the radiologist of of lucency through the distal radius that may represent a nondisplaced fracture. I reviewed her hand x-ray. There is a clear lucency through the scaphoid that I think is a scaphoid fracture. I do wonder about a lucency through the base of the 5th metacarpal as well. She does have a lot of degenerative changes so it is a little hard to tell. The radiologist read her hand x-ray showing a scaphoid fracture but did not comment on the 5th metacarpal. She does have tenderness throughout that area of the hand, she has lot of bruising there as well. She definitely has scaphoid tenderness. I put her in a thumb spica on the left, I think the scaphoid is the most definitive fracture so I wanted to make sure to cover that 1. I think that splint will immobilize her hand reasonably enough to cover for possible 5th metacarpal fracture as well. Procedure note: The facial lacerations were cleaned with normal saline, I closed these with Dermabond. She tolerated this well without immediate complication. Discussed wound care, return for signs of infection. Glue will slough off on its own but can be removed in 7-10 days if desired with acetone. We made a follow-up appointment with Orthopedics for her. Sling provided. Ice as needed. Tylenol as needed. Vital Signs Vital signs: Initial Vital Signs Temperature 98.7 F 03/08/22 18:14 Temperature Source Temporal Artery Scan 03/08/22 18:14 Pulse Rate 51 L 03/08/22 18:14 Respiratory Rate 18 03/08/22 18:14 Blood Pressure 163/76 H 03/08/22 18:14 Blood Pressure Mean 105 03/08/22 18:14 Blood Pressure Position Sitting 03/08/22 18:14 Pulse Oximetry 98 03/08/22 18:14 Oxygen Delivery Method 03/08/22 18:14 Vital Signs Temperature 98.7 F 03/08/22 18:14 Pulse Rate 51 L 03/08/22 18:14 Respiratory Rate 18 03/08/22 18:14 Blood Pressure 163/76 H 03/08/22 18:14 Pulse Oximetry 98 03/08/22 18:14 Oxygen Delivery Method 03/08/22 18:14 Temperature 98.7 F 03/08/22 18:14 Pulse Rate 51 L 03/08/22 18:14 Respiratory Rate 18 03/08/22 18:14 Blood Pressure 163/76 H 03/08/22 18:14 Pulse Oximetry 98 03/08/22 18:14 Oxygen Delivery Method 03/08/22 18:14 Discharge Plan Discharge Clinical Impression: Tongue wound, Elevated INR Patient Disposition: Home, Self-Care Condition: Improved Instructions: Elevated INR (ED) Additional Instructions: Do not eat anything until the anesthetic as worn off, otherwise you may bite your tongue. The suture will dissolve in a couple of weeks, but can be removed in about 5 days if you would like. You may note a little bit of oozing as the anesthetic wears off but it should be improved. If you have significant bleeding, return to the ER. Coumadin schedule per your clinic. Prescriptions: No Action amlodipine 5 mg tablet 5 mg PO DAILY Rx Instructions: to replace lisinopril/hctz blood pressure medication warfarin 5 mg tablet 5 - 7.5 mg PO DAILY Label Comments: Take 7.5mg (5mg x 1.5) every Mon, Sat; 5mg (5mg x 1) all other days in the evening primidone 50 mg tablet 150 mg PO DAILY polyethylene glycol 3350 17 gram/dose powder 17 g PO DAILY PRN pantoprazole 40 mg tablet,delayed release (DR/EC) 40 mg PO DAILY cholecalciferol (vitamin D3) 125 mcg (5,000 unit) tablet 5,000 unit PO DAILY bupropion HCl 150 mg tablet extended release 24 hr 150 mg PO DAILY rosuvastatin 10 mg tablet 10 mg PO DAILY fluoxetine 20 mg capsule 20 mg PO DAILY ferrous sulfate 325 mg (65 mg iron) tablet 325 mg PO DAILY levothyroxine 100 mcg tablet 100 mcg PO DAILY cyanocobalamin (vitamin B-12) 1,000 mcg tablet 1,000 mcg PO DAILY alendronate 70 mg tablet 70 mg PO Q7D Label Comments: TAKE 1 TAB BY MOUTH ONCE WEEKLY IN THE MORNING ON EMPTY STOMACH W/ 8 OZ WATER STAY UPRIGHT FOR 1 HR amiodarone 200 mg tablet 200 mg PO DAILY Label Comments: TAKE 1 TABLET BY MOUTH EVERY DAY furosemide 40 mg tablet 40 mg PO DAILY PRN Label Comments: TAKE 1 TABLET BY MOUTH IN THE MORNING NEEDED FOR SWELLING aspirin 81 mg tablet,chewable 81 mg PO DAILY magnesium oxide 400 mg magnesium capsule 400 mg PO DAILY metoprolol succinate 25 mg Tablet Extended Release 24 Hr 25 mg PO DAILY 30 Days Qty: 30 1RF gabapentin 300 mg capsule 300 mg PO TID Qty: 90 2RF calcitonin (salmon) 200 unit/actuation [place],Non-Aerosol 1 spray intranasal HS 30 Days Qty: 0 1RF magnesium oxide 400 mg (241.3 mg magnesium) Tablet 400 mg PO DAILY 30 Days Qty: 30 1RF lidocaine 5 % Adhesive Patch,Medicated 1 patch transdermal Q24H 30 Days Qty: 10 2RF fentanyl 25 mcg/hr Patch 72 Hour 1 patch transdermal Q72H 15 Days Qty: 5 0RF acetaminophen 325 mg capsule 650 mg PO QID Qty: 200 1RF hydroxyzine HCl 25 mg tablet 25 mg PO TID PRN (Reason: pain) Qty: 20 1RF Follow Up/Referrals: Luis Ryan MD [Primary Care Provider] - Stand Alone Forms: [facility] Info Instructions
--- NOTE | 2022-03-08 22:42 | ED_ITS ---
HPI - General Adult General Date Seen: 03/08/22 Chief complaint: Laceration/Wound Stated complaint: INJURED TONGUE FROM BITE,WON'T STOP BLEEDING Time Seen by Provider: 03/08/22 18:31 Source: patient and family History of Present Illness HPI narrative: Patient is a 76-year-old woman who is on Coumadin for atrial fibrillation. Her INR was checked today and was found to be 6. She has got a schedule recommended by her clinic and is holding her Coumadin for the next several days. Tonight she sustained tiny injury to her tongue, she initially told me she thought she did this with her toothbrush, later said she might have bitten her tongue. It is kind of unclear what happened, in any case she has a wound on her tongue which will not stop bleeding. No other injuries or complaints. Related Data Home Medications Medication Instructions Recorded Confirmed amlodipine 5 mg tablet 5 mg PO DAILY 01/26/22 02/16/22 bupropion HCl 150 mg 24 hr tablet, 150 mg PO DAILY 01/26/22 02/16/22 extended release cholecalciferol (vitamin D3) 125 5,000 unit PO DAILY 01/26/22 02/16/22 mcg (5,000 unit) tablet cyanocobalamin (vitamin B-12) 1,000 mcg PO DAILY 01/26/22 02/16/22 1,000 mcg tablet ferrous sulfate 325 mg (65 mg 325 mg PO DAILY 01/26/22 02/16/22 iron) tablet fluoxetine 20 mg capsule 20 mg PO DAILY 01/26/22 02/16/22 levothyroxine 100 mcg tablet 100 mcg PO DAILY 01/26/22 02/16/22 pantoprazole 40 mg tablet,delayed 40 mg PO DAILY 01/26/22 02/16/22 release polyethylene glycol 3350 17 17 g PO DAILY PRN 01/26/22 02/16/22 gram/dose oral powder primidone 50 mg tablet 150 mg PO DAILY 01/26/22 02/19/22 rosuvastatin 10 mg tablet 10 mg PO DAILY 01/26/22 02/16/22 warfarin 5 mg tablet 5 - 7.5 mg PO DAILY 01/26/22 02/17/22 alendronate 70 mg tablet 70 mg PO Q7D 02/16/22 02/17/22 amiodarone 200 mg tablet 200 mg PO DAILY 02/16/22 02/16/22 furosemide 40 mg tablet 40 mg PO DAILY PRN 02/16/22 02/16/22 aspirin 81 mg chewable tablet 81 mg PO DAILY 02/17/22 02/17/22 magnesium oxide 400 mg PO DAILY 02/19/22 02/19/22 Previous Rx's Medication Instructions Recorded acetaminophen 325 mg capsule 650 mg PO QID #200 caps 02/22/22 calcitonin (salmon) 200 1 spray intranasal HS 30 days #0 mL 02/22/22 unit/actuation nasal spray fentanyl 25 mcg/hr transdermal 1 patch transdermal Q72H 15 days 02/22/22 patch #5 ea gabapentin 300 mg capsule 300 mg PO TID #90 caps 02/22/22 hydroxyzine HCl 25 mg tablet 25 mg PO TID PRN pain #20 tabs 02/22/22 lidocaine 5 % topical patch 1 patch transdermal Q24H 30 days 02/22/22 #10 ea magnesium oxide 400 mg (241.3 mg 400 mg PO DAILY 30 days #30 tabs 02/22/22 magnesium) tablet metoprolol succinate 25 mg 25 mg PO DAILY 30 days #30 tabs 02/22/22 tablet,extended release 24 hr Allergies Allergy/AdvReac Type Severity Reaction Status Date / Time pneumococcal vaccine Allergy Severe Anaphylaxis Verified 02/16/22 20:25 [From Prevnar 13 (PF)] prednisone Allergy Mild Rash Verified 02/16/22 20:26 Influenza A virus Allergy Severe Anaphylaxis Uncoded 02/16/22 20:25 [facility] Medical History Altered mental status Anemia Chronic anticoagulation Compression fracture of lumbar vertebra COPD (chronic obstructive pulmonary disease) Depression Disability of walking Hiatal hernia History of alcoholism Hyperlipidemia Hypothyroidism Lumbar radicular pain Osteoporosis Panic disorder Paroxysmal atrial fibrillation Polypharmacy Restrictive pericarditis Right groin pain Spinal stenosis Stage 3 chronic kidney disease Thyroid disease Tremors of nervous system Vitamin B12 deficiency Surgical History History of repair of hiatal hernia 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 is healthcare power of finance attorney. Code status is DNR. She is a former cigarette smoker. Formally had a problem with alcohol abuse. She is unable to tell me today if she is still drinking and when she last had something to drink. She does not use recreational drugs. Highest level of school completed/degree received: high school graduate Smoking Status: Former smoker What tobacco products do you use: cigarettes Smoking quit date/years: <= 15 years ago Do you use any of these nicotine containing products: None Second hand tobacco smoke exposure: No How often do you have a drink containing alcohol: monthly or less Alcohol type: wine AUDIT-C Alcohol total score: 1 Non-prescribed substance use: denies use Caffeine: Yes service: No Exam Narrative: Exam Narrative: Vital signs reviewed In general, an alert, nontoxic woman. Head: Normocephalic, atraumatic. ENT: Dentition intact. Tongue shows a pinpoint bleeding wound at the tip of her tongue. No other injuries or lacerations. Skin: Warm dry well perfused. Const: Vital Signs, click to edit/add: Vital Signs - 24 hr 03/08/22 18:14 Temperature 98.7 F Pulse Rate [Right Pulse Oximeter] 51 L Respiratory Rate 18 Blood Pressure [Ri ght Upper Arm] 163/76 H Pulse Oximetry 98 Oxygen Delivery Me thod Room Air Documenting provider has reviewed patient's vital signs: yes Course Course Hospital Course: I injected the tip of her tongue with lidocaine with epinephrine. I then placed a single stitch using 5 0 Vicryl. At the end of this bleeding was stopped. Discussed with them that when the lidocaine and epi wear off there may be a little bit of oozing at the site. I do not expect significant bleeding. If so, return to the ER. Continue Coumadin dosing per clinic. Vital Signs Vital signs: Initial Vital Signs Temperature 98.7 F 03/08/22 18:14 Temperature Source Temporal Artery Scan 03/08/22 18:14 Pulse Rate 51 L 03/08/22 18:14 Respiratory Rate 18 03/08/22 18:14 Blood Pressure 163/76 H 03/08/22 18:14 Blood Pressure Mean 105 03/08/22 18:14 Blood Pressure Position Sitting 03/08/22 18:14 Pulse Oximetry 98 03/08/22 18:14 Oxygen Delivery Method 03/08/22 18:14 Vital Signs Temperature 98.7 F 03/08/22 18:14 Pulse Rate 51 L 03/08/22 18:14 Respiratory Rate 18 03/08/22 18:14 Blood Pressure 163/76 H 03/08/22 18:14 Pulse Oximetry 98 03/08/22 18:14 Oxygen Delivery Method 03/08/22 18:14 Temperature 98.7 F 03/08/22 18:14 Pulse Rate 51 L 03/08/22 18:14 Respiratory Rate 18 03/08/22 18:14 Blood Pressure 163/76 H 03/08/22 18:14 Pulse Oximetry 98 03/08/22 18:14 Oxygen Delivery Method 03/08/22 18:14 Discharge Plan Discharge Clinical Impression: Tongue wound, Elevated INR Patient Disposition: Home, Self-Care Condition: Improved Instructions: Elevated INR (ED) Additional Instructions: Do not eat anything until the anesthetic as worn off, otherwise you may bite your tongue. The suture will dissolve in a couple of weeks, but can be removed in about 5 days if you would like. You may note a little bit of oozing as the anesthetic wears off but it should be improved. If you have significant bleeding, return to the ER. Coumadin schedule per your clinic. Prescriptions: No Action amlodipine 5 mg tablet 5 mg PO DAILY Rx Instructions: to replace lisinopril/hctz blood pressure medication warfarin 5 mg tablet 5 - 7.5 mg PO DAILY Label Comments: Take 7.5mg (5mg x 1.5) every Mon, Sat; 5mg (5mg x 1) all other days in the evening primidone 50 mg tablet 150 mg PO DAILY polyethylene glycol 3350 17 gram/dose powder 17 g PO DAILY PRN pantoprazole 40 mg tablet,delayed release (DR/EC) 40 mg PO DAILY cholecalciferol (vitamin D3) 125 mcg (5,000 unit) tablet 5,000 unit PO DAILY bupropion HCl 150 mg tablet extended release 24 hr 150 mg PO DAILY rosuvastatin 10 mg tablet 10 mg PO DAILY fluoxetine 20 mg capsule 20 mg PO DAILY ferrous sulfate 325 mg (65 mg iron) tablet 325 mg PO DAILY levothyroxine 100 mcg tablet 100 mcg PO DAILY cyanocobalamin (vitamin B-12) 1,000 mcg tablet 1,000 mcg PO DAILY alendronate 70 mg tablet 70 mg PO Q7D Label Comments: TAKE 1 TAB BY MOUTH ONCE WEEKLY IN THE MORNING ON EMPTY STOMACH W/ 8 OZ WATER STAY UPRIGHT FOR 1 HR amiodarone 200 mg tablet 200 mg PO DAILY Label Comments: TAKE 1 TABLET BY MOUTH EVERY DAY furosemide 40 mg tablet 40 mg PO DAILY PRN Label Comments: TAKE 1 TABLET BY MOUTH IN THE MORNING NEEDED FOR SWELLING aspirin 81 mg tablet,chewable 81 mg PO DAILY magnesium oxide 400 mg magnesium capsule 400 mg PO DAILY metoprolol succinate 25 mg Tablet Extended Release 24 Hr 25 mg PO DAILY 30 Days Qty: 30 1RF gabapentin 300 mg capsule 300 mg PO TID Qty: 90 2RF calcitonin (salmon) 200 unit/actuation [place],Non-Aerosol 1 spray intranasal HS 30 Days Qty: 0 1RF magnesium oxide 400 mg (241.3 mg magnesium) Tablet 400 mg PO DAILY 30 Days Qty: 30 1RF lidocaine 5 % Adhesive Patch,Medicated 1 patch transdermal Q24H 30 Days Qty: 10 2RF fentanyl 25 mcg/hr Patch 72 Hour 1 patch transdermal Q72H 15 Days Qty: 5 0RF acetaminophen 325 mg capsule 650 mg PO QID Qty: 200 1RF hydroxyzine HCl 25 mg tablet 25 mg PO TID PRN (Reason: pain) Qty: 20 1RF Follow Up/Referrals: Luis Ryan MD [Primary Care Provider] - Stand Alone Forms: [facility] Info Instructions
== END 2022-03-08 19:34 | disposition home or self-care (01) ==
LOC: ED 19:22
PROVIDERS: Emergency Provider Emergency Medicine; PCP Family Medicine
DX: S62.002A Unspecified fracture of navicular [scaphoid] bone of left wrist, initial encounter for closed fracture (principal); S01.112A Laceration without foreign body of left eyelid and periocular area, initial encounter; W01.0XXA Fall on same level from slipping, tripping and stumbling without subsequent striking against object, initial encounter; R79.1 Abnormal coagulation profile
CPT/HCPCS: 29125; 99283; 99284

== ENCOUNTER 2022-03-10 13:08 | Outpatient (REF) | payer OTHER, SELFPAY ==
[2022-03-10 16:24] LABS: Prothrombin Time 55.5 Seconds
[2022-03-10 16:25] LABS: INR 6.32 (0.91-1.10)
== END 2022-03-10 13:09 | disposition home or self-care (01) ==
LOC: NPINS 13:08
PROVIDERS: PCP Family Medicine; Visit Provider Family Medicine
DX: Z79.01 Long term (current) use of anticoagulants (principal)
CPT/HCPCS: 85610

== ENCOUNTER 2022-03-12 21:18 | Outpatient (CLI) | payer OTHER, SELFPAY | END 2022-03-12 21:19 | disposition home or self-care (01) | LOC: AMB 03-19 20:30 | PROVIDERS: PCP Family Medicine; Visit Provider Family Medicine | DX: S09.90XA Unspecified injury of head, initial encounter (principal); S39.92XA Unspecified injury of lower back, initial encounter; R41.82 Altered mental status, unspecified; W18.30XA Fall on same level, unspecified, initial encounter; Y92.002 Bathroom of unspecified non-institutional (private) residence as the place of occurrence of the external cause | CPT/HCPCS: A0425; A0427 ==

== ENCOUNTER 2022-03-12 22:05 | Emergency (ER) | payer OTHER, SELFPAY ==
[2022-03-12 22:05] VITALS: BP 130/63; PULSE 67; RESP 20; TEMP 36.9; O2SAT 92
--- NOTE | 2022-03-12 22:08 | CRLHL7_ITS ---
For Patients: As a result of the Century Cures Act, medical imaging exams and procedure reports are released immediately into your electronic medical record. You may view this report before your referring provider. If you have questions, please contact your health care provider. INDICATION: Fall, on blood thinners. TECHNIQUE: Head CT without contrast. Coronal and sagittal reformats were generated. COMPARISON: None. FINDINGS: Limited by patient motion. : CSF spaces: Within normal limits for age. Brain parenchyma and extra-axial spaces: Nonspecific low attenuation white matter changes consistent with chronic microvascular disease. Within limitations of patient motion, no sign of mass, hemorrhage, or midline shift. Skull base and calvarium: The visualized paranasal sinuses and mastoid air cells demonstrate no acute or significant findings. The visualized orbits are grossly unremarkable. No skull fractures. IMPRESSION: No gross intracranial abnormality within limitations of patient motion. If there is ongoing clinical concern for acute abnormality, consider follow-up imaging when the patient is better able to cooperate. Please note that all CT scans at this facility use dose modulation, iterative reconstruction, and/or weight-based dosing when appropriate to reduce radiation dose to as low as reasonably achievable. Dictated by Kg Mcmullen MD @ 03/12/2022 10:32:01 PM (Electronically Signed)
--- NOTE | 2022-03-12 22:08 | CRLHL7_ITS ---
For Patients: As a result of the Century Cures Act, medical imaging exams and procedure reports are released immediately into your electronic medical record. You may view this report before your referring provider. If you have questions, please contact your health care provider. INDICATION: Fall. TECHNIQUE: CT cervical spine without contrast. Coronal and sagittal reformats were generated. COMPARISON: None. FINDINGS: Mildly limited by patient motion. : Vertebrae: The bones are demineralized. No fractures or suspicious bony lesions. Discs and facet joints: Multilevel degenerative changes in the form of disc space narrowing, subchondral sclerosis, and marginal osteophyte formation. Osteoarthritic changes involve the apophyseal joints of the cervical spine. Extraspinal findings: Prevertebral soft tissues, visualized airway, and visualized lungs are unremarkable. IMPRESSION: Degenerative changes. No acute abnormality within limitations of patient motion. Please note that all CT scans at this facility use dose modulation, iterative reconstruction, and/or weight-based dosing when appropriate to reduce radiation dose to as low as reasonably achievable. Dictated by Kg Mcmullen MD @ 03/12/2022 10:33:19 PM (Electronically Signed)
--- NOTE | 2022-03-12 22:10 | ED.NURSE ---
Patient in CT scanner
--- NOTE | 2022-03-12 22:15 | ED.NURSE ---
Patient moved to tab 1. Bedside glucose 119. MD notified. Patient continues to be confused in room.
[2022-03-12 22:24] VITALS: BP 141/66; PULSE 70; RESP 16; O2SAT 95
[2022-03-12 22:40] VITALS: BP 133/55; PULSE 68; RESP 20; O2SAT 95
[2022-03-12 22:41] LABS: Basophils Absolute Auto 0.02 K/uL (0.00-0.30); Basophils Percent Auto 0.2 % (0.0-3.0); Eosinophils Absolute Auto 0.01 K/uL (0.00-0.50); Eosinophils Percent Auto 0.1 % (0.0-7.0); Hematocrit 21.6 % (33.0-51.0); Immature Granulocytes Abs Auto 0.02 K/uL (0.00-0.30); Lymphocytes Percent Auto 10.3 % (20-44); Mean Corpuscular HGB Conc 32 gm/dL (32-36); Mean Corpuscular Hemoglobin 36 pg (26-34); Mean Corpuscular Volume 111 fL (80-100); Monocytes Percent Auto 6.9 % (0.0-11.0); Neutrophils Percent Auto 82.3 % (42.0-72.0); Platelet Count* 156 K/uL (140-440); RDW Coefficient of Variation % 15.1 % (11.5-15.5); Red Blood Count 1.95 m/uL (4.00-5.20); White Blood Count* 10.22 K/uL (4.50-11.00)
[2022-03-12 22:47] LABS: Slide Review Reflex No
--- NOTE | 2022-03-12 22:49 | ED.NURSE ---
Critical lab called: Hgb 7.0 notified. Last Hgb on 02/21/22 was 10.5
[2022-03-12 22:50] VITALS: BP 132/83; BP 133/55; PULSE 70; RESP 14; RESP 16; O2SAT 91; O2SAT 96
[2022-03-12 22:54] LABS: Albumin* 3.1 g/dL (3.3-5.0); Chloride* 98 mmol/L (96-114)
[2022-03-12 22:55] LABS: Potassium* 4.1 mmol/L (3.6-5.1); Sodium* 132 mmol/L (135-149)
[2022-03-12 22:57] LABS: Aspartate Amino Transferase* 32 U/L (12-35); Bilirubin Total* 0.8 mg/dL (0.1-1.5); Blood Urea Nitrogen* 22 mg/dL (7-30); Carbon Dioxide* 28 mmol/L (20-32); Estimated Glomerular Filt Rate 59 ml/min; INR 3.37 (0.91-1.10); Magnesium* 1.7 mg/dL (1.5-2.6); Prothrombin Time 34.4 Seconds; Total Protein* 5.7 g/dL (6.0-8.3)
[2022-03-12 22:58] LABS: Alanine Aminotransferase* 19 U/L (4-35); Alkaline Phosphatase* 100 U/L (40-150); Glucose* 127 mg/dL (60-115)
[2022-03-12 23:00] VITALS: BP 128/62; PULSE 69; RESP 16; O2SAT 90
[2022-03-12 23:08] LABS: Appearance Urine Clear (Clear); Bilirubin Urine Negative (Negative); Blood Urine Negative (Negative); Color Urine Yellow (Yellow); Glucose Urine Negative (Negative); Ketones Urine Negative (Negative); Leukocyte Esterase Urine Negative (Negative); Nitrite Urine Negative (Negative); Protein Urine Negative (Negative); Specific Gravity Urine 1.015 (1.000-1.030); Urobilinogen Urine 0.2 (0.2-1.0)
[2022-03-12 23:12] LABS: Ethanol* < 0.01 % (0.01-0.03)
--- NOTE | 2022-03-12 23:13 | CRLHL7_ITS ---
For Patients: As a result of the 21st Century Cures Act, medical imaging exams and procedure reports are released immediately into your electronic medical record. You may view this report before your referring provider. If you have questions, please contact your health care provider. INDICATION: Anemia, fall on blood thinners, back pain. TECHNIQUE: CT chest, abdomen, and pelvis acquired with 74 mL of Isovue 370 IV contrast. Coronal and sagittal reformats were generated. COMPARISON: MRI of the lumbar spine from 01/05/[address] chest from 01/01/2021. FINDINGS: Limited by patient motion. : CHEST: Thyroid: Unremarkable. Thoracic lymph nodes: No enlarged supraclavicular, mediastinal, hilar, or axillary lymph nodes. Mediastinum and esophagus: Unremarkable. Heart and vasculature: The heart is enlarged. Lungs: Unremarkable. Pleura: Small left pleural effusion with associated relaxation atelectasis. Chest wall: Unremarkable. ABDOMEN AND PELVIS: Liver: Unremarkable. Gallbladder and bile ducts: Tiny layering densities are probably small gallstones. No wall thickening or pericholecystic fluid. Spleen: Multiple calcifications are suggestive of granulomas. Pancreas: Mildly atrophic. Adrenal glands: Unremarkable. No nodules. Kidneys and Ureters: Unremarkable. No suspicious masses, stones, or hydronephrosis. Cortical hypodensities are suggestive of cysts. Lymph Nodes and Retroperitoneum: Large left retroperitoneal hematoma extends from the diaphragm along the psoas muscle and iliacus to the superior iliac crest. The hematoma shows a heterogeneous appearance, suggesting areas of involution and acute hemorrhage. This measures at least 9.1 x 5.3 cm (2/191). Vasculature: Unremarkable. GI tract: Large amount of colonic stool. Small bowel loops are normal in caliber. Peritoneum/Abdominal Wall: Unremarkable. No mass or infiltration. No free air or free fluid. Pelvic Viscera: Unremarkable. Bladder: Unremarkable. Bones: The bones are demineralized. Compression deformities of L1 and L3 are new from 01/05/2022 MRI. Multilevel degenerative changes. IMPRESSION: 1. Large left retroperitoneal hematoma. 2. Small left pleural effusion with associated relaxation atelectasis. 3. Compression deformities of the L1 and L3 vertebral bodies are new from the previous MRI and could be acute. Please note that all CT scans at this facility use dose modulation, iterative reconstruction, and/or weight-based dosing when appropriate to reduce radiation dose to as low as reasonably achievable. Dictated by Kg Mcmullen MD @ 03/13/2022 12:27:21 AM (Electronically Signed)
[2022-03-12 23:30] VITALS: BP 127/72; PULSE 70; RESP 21; O2SAT 100
[2022-03-13] VITALS: BP 142/55; PULSE 71; RESP 17; O2SAT 100
--- NOTE | 2022-03-13 00:01 | CRLHL7_ITS ---
For Patients: As a result of the Century Cures Act, medical imaging exams and procedure reports are released immediately into your electronic medical record. You may view this report before your referring provider. If you have questions, please contact your health care provider. INDICATION: Fall. TECHNIQUE: CT lumbar spine without contrast. Coronal and sagittal reformats were generated. COMPARISON: Lumbar spine MRI from 01/05/2022. FINDINGS: Vertebrae: The bones are demineralized. Compression deformities of the L1 and L3 vertebral body are new from the prior MRI. Both vertebral bodies show approximately 50 degree loss of height of the bodies. The superior aspect of the L1 vertebral body shows mild retropulsion. Discs and facet joints: Multilevel degenerative changes in the form of disc space narrowing, subchondral sclerosis, and marginal osteophyte formation. Extraspinal findings: Partially visualized soft tissues show left retroperitoneal hematoma, better visualized on the dedicated CT of the chest, abdomen, and pelvis. IMPRESSION: 1. Compression deformities of L1 and L3 are new from 01/05/2022 and likely acute. 2. Large left retroperitoneal hematoma is better visualized on the CT of the chest, abdomen, and pelvis. Please note that all CT scans at this facility use dose modulation, iterative reconstruction, and/or weight-based dosing when appropriate to reduce radiation dose to as low as reasonably achievable. Dictated by Kg Mcmullen MD @ 03/13/2022 12:30:00 AM (Electronically Signed)
--- NOTE | 2022-03-13 00:01 | CRLHL7_ITS ---
For Patients: As a result of the Century Cures Act, medical imaging exams and procedure reports are released immediately into your electronic medical record. You may view this report before your referring provider. If you have questions, please contact your health care provider. INDICATION: Fall. TECHNIQUE: CT thoracic spine without contrast. Coronal and sagittal reformats were generated. COMPARISON: None. FINDINGS: Vertebrae: The bones are demineralized. Mild scoliotic curvature. The included L1 vertebral body shows compression deformity. The thoracic vertebral body heights are maintained. Discs and facet joints: Multilevel degenerative changes include disc space narrowing and small marginal osteophytes. Extraspinal findings: Partially visualized left pleural effusion and atelectasis. The included upper abdomen shows the retroperitoneal hematoma on the left side. IMPRESSION: 1. Mild degenerative changes of the thoracic spine. No acute abnormality. 2. Compression deformity of the L1 vertebral body is better visualized on the dedicated lumbar spine series. 3. Left pleural effusion and left retroperitoneal hematoma are better visualized on the CT of the chest, abdomen, and pelvis. Please note that all CT scans at this facility use dose modulation, iterative reconstruction, and/or weight-based dosing when appropriate to reduce radiation dose to as low as reasonably achievable. Dictated by Kg Mcmullen MD @ 03/13/2022 12:31:56 AM (Electronically Signed)
[2022-03-13] MEDS: 0.9 % SODIUM CHLORIDE 1000 ml 1,000 ML IV (00:15)
[2022-03-13 00:30] VITALS: BP 117/69; PULSE 74; RESP 15; O2SAT 92
[2022-03-13 00:34] LABS: PCR FLU A Negative PCR FLU A (Negative); PCR FLU B Negative PCR FLU B (Negative)
[2022-03-13 01:00] VITALS: BP 134/68; PULSE 75; RESP 12; O2SAT 93
[2022-03-13 01:00] LABS: SARS PCR* Negative SARS-CoV-2 (Negative)
[2022-03-13] MEDS: TRANEXAMIC ACID 100 MG/ML INJ 1000 MG IV (01:15)
--- NOTE | 2022-03-13 01:15 | ED.AMS ---
HPI - Altered Mental Status General Chief Complaint: Altered Mental Status Stated Complaint: Fall Time Seen by Provider: 03/12/22 22:08 History of Present Illness HPI narrative: 76-year-old woman brought by EMS [facility] a to the emergency department with concern of altered mental status in the setting of a fall. She has been anticoagulated in the setting of atrial fibrillation with Coumadin and supratherapeutic recently last days ago with an INR of 6.6. reports holding her Coumadin during this last week. Fall today Christiano about 8:30 p.m. after they gave 2 doses of her ?muscle relaxer? which I understand to be hydroxyzine it appears. She also has a fentanyl patch in place. I see MS Simms referenced in older records but I would do not see that on the current medication list. reports that after receiving this double dose of hydroxyzine is she was hallucinating and subsequently fell striking her head against a by fooled closet door. He was unable to get her up due to the pain that she was complaining of and called EMS. They noted her to be altered. Further questioning in time in the emergency department did review and review of records it would appear that unusual mentation is not necessarily new for Ms. Steel. I initially see her in the back mcdaniel on the way to CT to scan for head and neck med. She is intermittently quite clear then says bizarre things. Admitted recently with altered mental status and lumbar compression fracture. Related Data Home Medications Medication Instructions Recorded Confirmed amlodipine 5 mg tablet 5 mg PO DAILY 01/26/22 03/13/22 bupropion HCl 150 mg 24 hr tablet, 150 mg PO DAILY 01/26/22 03/13/22 extended release cholecalciferol (vitamin D3) 125 5,000 unit PO DAILY 01/26/22 03/13/22 mcg (5,000 unit) tablet cyanocobalamin (vitamin B-12) 1,000 mcg PO DAILY 01/26/22 03/13/22 1,000 mcg tablet ferrous sulfate 325 mg (65 mg 325 mg PO DAILY 01/26/22 03/13/22 iron) tablet fluoxetine 20 mg capsule 20 mg PO DAILY 01/26/22 03/13/22 levothyroxine 100 mcg tablet 100 mcg PO DAILY 01/26/22 03/13/22 pantoprazole 40 mg tablet,delayed 40 mg PO DAILY 01/26/22 03/13/22 release polyethylene glycol 3350 17 17 g PO DAILY PRN 01/26/22 03/13/22 gram/dose oral powder primidone 50 mg tablet 150 mg PO DAILY 01/26/22 03/13/22 rosuvastatin 10 mg tablet 10 mg PO DAILY 01/26/22 03/13/22 warfarin 5 mg tablet 5 - 7.5 mg PO DAILY 01/26/22 03/13/22 alendronate 70 mg tablet 70 mg PO Q7D 02/16/22 03/13/22 amiodarone 200 mg tablet 200 mg PO DAILY 02/16/22 03/13/22 furosemide 40 mg tablet 40 mg PO DAILY PRN 02/16/22 03/13/22 aspirin 81 mg chewable tablet 81 mg PO DAILY 02/17/22 03/13/22 magnesium oxide 400 mg PO DAILY 02/19/22 03/13/22 Previous Rx's Medication Instructions Recorded acetaminophen 325 mg capsule 650 mg PO QID #200 caps 02/22/22 calcitonin (salmon) 200 1 spray intranasal HS 30 days #0 mL 02/22/22 unit/actuation nasal spray fentanyl 25 mcg/hr transdermal 1 patch transdermal Q72H 15 days 02/22/22 patch #5 ea gabapentin 300 mg capsule 300 mg PO TID #90 caps 02/22/22 hydroxyzine HCl 25 mg tablet 25 mg PO TID PRN pain #20 tabs 02/22/22 lidocaine 5 % topical patch 1 patch transdermal Q24H 30 days 02/22/22 #10 ea magnesium oxide 400 mg (241.3 mg 400 mg PO DAILY 30 days #30 tabs 02/22/22 magnesium) tablet metoprolol succinate 25 mg 25 mg PO DAILY 30 days #30 tabs 02/22/22 tablet,extended release 24 hr Allergies Allergy/AdvReac Type Severity Reaction Status Date / Time pneumococcal vaccine Allergy Severe Anaphylaxis Verified 02/16/22 20:25 [From Prevmarisabel 13 (PF)] prednisone Allergy Mild Rash Verified 02/16/22 20:26 Influenza A virus Allergy Severe Anaphylaxis Uncoded 02/16/22 20:25 Review of Systems Status of ROS: Reports: unobtainable due to mental status (Other than complaints in the immediate) [facility] Medical History Altered mental status Anemia Chronic anticoagulation Compression fracture of lumbar vertebra COPD (chronic obstructive pulmonary disease) Depression Disability of walking Hiatal hernia History of alcoholism Hyperlipidemia Hypothyroidism Lumbar radicular pain Osteoporosis Panic disorder Paroxysmal atrial fibrillation Polypharmacy Restrictive pericarditis Right groin pain Spinal stenosis Stage 3 chronic kidney disease Thyroid disease Tremors of nervous system Vitamin B12 deficiency Surgical History History of repair of hiatal hernia 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 is healthcare power of erisa attorney. Code status is DNR. She is a former cigarette smoker. Formally had a problem with alcohol abuse. She is unable to tell me today if she is still drinking and when she last had something to drink. She does not use recreational drugs. Highest level of school completed/degree received: high school graduate Smoking Status: Former smoker What tobacco products do you use: cigarettes Smoking quit date/years: <= 15 years ago Do you use any of these nicotine containing products: None Second hand tobacco smoke exposure: No How often do you have a drink containing alcohol: monthly or less Alcohol type: wine AUDIT-C Alcohol total score: 1 Non-prescribed substance use: denies use Caffeine: Yes service: No Exam Narrative: Exam Narrative: Cranial nerves 2-12 are intact. GCS of 15. Head looks to be atraumatic. Neck is supple. She does not want us to move her noting a good deal of back pain. There is moving all extremities without difficulty but limits the left leg a little bit due to complaint of back pain. Scar over knee evident of total knee replacement. She has some bruising over her forearms consistent I would say with recently elevated INR. Dentition intact. There is no fluid in the ear canals. No Ramirez sign. Examination of the back log rolled does not actually elicit tenderness and there is no deformity appreciated. She continues to complain of back pain. Lungs are clear. She is breathing easily. No pain to palpation over the chest wall. Abdomen is soft and nontender. No instability or crepitus to palpation of the anterior iliac crest. Able to flex and extend at her hips though complains of pain. My understanding is that this is not new describing some inguinal pain left inner thigh greater than right. Const: Vital Signs, click to edit/add: Vital Signs - 24 hr 03/12/22 22:05 Temperature 98.4 F Pulse Rate [Right Pulse Oximeter] 67 Respiratory Rate 20 Blood Pressure [Ri ght Upper Arm] 130/63 Pulse Oximetry 92 Oxygen Delivery Me thod Room Air Documenting provider has reviewed patient's vital signs: yes Course Course Hospital Course: Mental status continued to wax and wane. Sometimes very clear other times nonsensical statements. Reviewed further with , this seems to have been going on chronically. She has been able to rest though in apparent comfort. Reevaluation(s) Reevaluation #1: Has been resting comfortably Consultations Consultation #1: Spoke with our surgeon on-call confirming need for transfer. Vital Signs Vital signs: Initial Vital Signs Temperature 98.4 F 03/12/22 22:05 Temperature Source Temporal Artery Scan 03/12/22 22:05 Pulse Rate 67 03/12/22 22:05 Pulse Rhythm 03/12/22 22:05 Respiratory Rate 20 03/12/22 22:05 Blood Pressure 130/63 03/12/22 22:05 Blood Pressure Mean 85 03/12/22 22:05 Blood Pressure Position Supine 03/12/22 22:05 Pulse Oximetry 92 03/12/22 22:05 Oxygen Delivery Method 03/12/22 22:05 Vital Signs Temperature 98.4 F 03/12/22 22:05 Pulse Rate 67 03/12/22 22:05 Respiratory Rate 20 03/12/22 22:05 Blood Pressure 130/63 03/12/22 22:05 Pulse Oximetry 92 03/12/22 22:05 Oxygen Delivery Method 03/12/22 22:05 Temperature 98.4 F 03/12/22 22:05 Pulse Rate 74 03/13/22 02:00 Respiratory Rate 20 03/13/22 02:00 Blood Pressure 135/73 03/13/22 02:00 Pulse Oximetry 98 03/13/22 02:00 Oxygen Delivery Method 03/13/22 02:00 Oxygen Flow Rate 2 03/13/22 02:00 MDM - Altered Mental Status MDM Narrative Medical decision making narrative: Head neck imaging reviewed by me does not show acute changes. With return of hemoglobin of 7 which is more than a 3 g drop over the last 3 weeks will be returning for further imaging. IV contrasted chest abdomen pelvis is done with bone windows also for thoracic and lumbar spine. INR now has improved to 3.4 I did review these images. Shows large left retroperitoneal bleed little over 9 by little over 5 cm. After departure over-read of bone windows for thoracic and lumbar spine confirms new L1 and L3 compression fractures Do order for vitamin K and TXA the latter admittedly of questionable benefit. Contact General surgery as suspect will not be able to keep this patient here. Confirming this, contact [facility] who are thankfully able to accept in cares. Also initiating Kcentra. Vitals have been stable and well over the time here though oxygen has drifted little bit down in rest. Repeat hemoglobin hematocrit relatively stable the probably have not quite normalized fully alert Medical Records Attestation: I reviewed the patient's medical records. Lab Data Attestation: I reviewed the patient's lab results. Labs: Lab Results 03/12/22 03/12/22 03/12/22 Range/Units 22:30 22:30 22:30 WBC 10.22 (4.50-11.00) K/uL RBC 1.95 L (4.00-5.20) m/uL Hgb 7.0 L* (12.0-16.0) gm/dL Hct 21.6 L (33.0-51.0) % MCV 111 H (80-100) fL MCH 36 H (26-34) pg MCHC 32 (32-36) gm/dL RDW Coeff of Norma 15.1 (11.5-15.5) % Plt Count 156 (140-440) K/uL Neut % (Auto) 82.3 H (42.0-72.0) % Lymph % (Auto) 10.3 L (20-44) % Bee % (Auto) 6.9 (0.0-11.0) % Eos % (Auto) 0.1 (0.0-7.0) % Baso % (Auto) 0.2 (0.0-3.0) % Neut # (Auto) 8.40 H (1.7-7.0) K/uL Lymph # (Auto) 1.10 (0.90-2.90) K/uL Bee # (Auto) 0.70 (0.00-0.90) K/UL Eos # (Auto) 0.01 (0.00-0.50) K/uL Baso # (Auto) 0.02 (0.00-0.30) K/uL Abs Immat Gran (auto) 0.02 (0.00-0.30) K/uL INR 3.37 H (0.91-1.10) Sodium 132 L (135-149) mmol/L Potassium 4.1 (3.6-5.1) mmol/L Chloride 98 (96-114) mmol/L Carbon Dioxide 28 (20-32) mmol/L BUN 22 (7-30) mg/dL Creatinine 1.0 (0.5-1.5) mg/dL Estimated GFR 59 ml/min Glucose 127 H (60-115) mg/dL Calcium 8.0 L (8.4-10.6) mg/dL Magnesium (1.5-2.6) mg/dL Total Bilirubin 0.8 (0.1-1.5) mg/dL AST 32 (12-35) U/L ALT 19 (4-35) U/L Alkaline Phosphatase 100 (40-150) U/L Total Protein 5.7 L (6.0-8.3) g/dL Albumin 3.1 L (3.3-5.0) g/dL Urine Color (Yellow) Urine Appearance (Clear) Urine pH (5.0-8.5) Ur Specific [place] (1.000-1.030) Urine Protein (Negative) Urine Glucose (UA) (Negative) Urine Ketones (Negative) Urine Blood (Negative) Urine Nitrite (Negative) Urine Bilirubin (Negative) Urine Urobilinogen (0.2-1.0) Ur Leukocyte Esterase (Negative) Urine Opiates Screen (Negative) Ur Oxycodone Screen (Negative) Urine Methadone Screen (Negative) Ur Propoxyphene Screen (Negative) Ur Barbiturates Screen (Negative) U Tricyclic Antidepress (Negative) Ur Phencyclidine Scrn (Negative) Ur Amphetamines Screen (Negative) U Methamphetamines Scrn (Negative) U Benzodiazepines Scrn (Negative) Urine Cocaine Screen (Negative) U Marijuana (THC) Screen (Negative) Ur Drug Screen Comment Ethyl Alcohol < 0.01 L (0.01-0.03) % SARS-CoV-2 (PCR) (Negative) Influenza Type A (PCR) (Negative) Influenza Type B (PCR) (Negative) Blood Type Antibody Screen 03/12/22 03/12/22 03/12/22 Range/Units 22:30 22:39 22:39 WBC (4.50-11.00) K/uL RBC (4.00-5.20) m/uL Hgb (12.0-16.0) gm/dL Hct (33.0-51.0) % MCV (80-100) fL MCH (26-34) pg MCHC (32-36) gm/dL RDW Coeff of Norma (11.5-15.5) % Plt Count (140-440) K/uL Neut % (Auto) (42.0-72.0) % Lymph % (Auto) (20-44) % Bee % (Auto) (0.0-11.0) % Eos % (Auto) (0.0-7.0) % Baso % (Auto) (0.0-3.0) % Neut # (Auto) (1.7-7.0) K/uL Lymph # (Auto) (0.90-2.90) K/uL Bee # (Auto) (0.00-0.90) K/UL Eos # (Auto) (0.00-0.50) K/uL Baso # (Auto) (0.00-0.30) K/uL Abs Immat Gran (auto) (0.00-0.30) K/uL INR (0.91-1.10) Sodium (135-149) mmol/L Potassium (3.6-5.1) mmol/L Chloride (96-114) mmol/L Carbon Dioxide (20-32) mmol/L BUN (7-30) mg/dL Creatinine (0.5-1.5) mg/dL Estimated GFR ml/min Glucose (60-115) mg/dL Calcium (8.4-10.6) mg/dL Magnesium 1.7 (1.5-2.6) mg/dL Total Bilirubin (0.1-1.5) mg/dL AST (12-35) U/L ALT (4-35) U/L Alkaline Phosphatase (40-150) U/L Total Protein (6.0-8.3) g/dL Albumin (3.3-5.0) g/dL Urine Color Yellow (Yellow) Urine Appearance Clear (Clear) Urine pH 6.0 (5.0-8.5) Ur Specific [place] 1.015 (1.000-1.030) Urine Protein Negative (Negative) Urine Glucose (UA) Negative (Negative) Urine Ketones Negative (Negative) Urine Blood Negative (Negative) Urine Nitrite Negative (Negative) Urine Bilirubin Negative (Negative) Urine Urobilinogen 0.2 (0.2-1.0) Ur Leukocyte Esterase Negative (Negative) Urine Opiates Screen Negative (Negative) Ur Oxycodone Screen Negative (Negative) Urine Methadone Screen Negative (Negative) Ur Propoxyphene Screen Negative (Negative) Ur Barbiturates Screen POSITIVE A* (Negative) U Tricyclic Antidepress Negative (Negative) Ur Phencyclidine Scrn Negative (Negative) Ur Amphetamines Screen Negative (Negative) U Methamphetamines Scrn Negative (Negative) U Benzodiazepines Scrn Negative (Negative) Urine Cocaine Screen Negative (Negative) U Marijuana (THC) Screen Negative (Negative) Ur Drug Screen Comment See Note Ethyl Alcohol (0.01-0.03) % SARS-CoV-2 (PCR) (Negative) Influenza Type A (PCR) (Negative) Influenza Type B (PCR) (Negative) Blood Type Antibody Screen 03/12/22 03/13/22 03/13/22 Range/Units 23:40 01:37 01:37 WBC 9.00 (4.50-11.00) K/uL RBC 1.79 L (4.00-5.20) m/uL Hgb 6.4 L* (12.0-16.0) gm/dL Hct 20.0 L (33.0-51.0) % MCV 112 H (80-100) fL MCH 36 H (26-34) pg MCHC 32 (32-36) gm/dL RDW Coeff of Norma (11.5-15.5) % Plt Count 135 L (140-440) K/uL Neut % (Auto) (42.0-72.0) % Lymph % (Auto) (20-44) % Bee % (Auto) (0.0-11.0) % Eos % (Auto) (0.0-7.0) % Baso % (Auto) (0.0-3.0) % Neut # (Auto) (1.7-7.0) K/uL Lymph # (Auto) (0.90-2.90) K/uL Bee # (Auto) (0.00-0.90) K/UL Eos # (Auto) (0.00-0.50) K/uL Baso # (Auto) (0.00-0.30) K/uL Abs Immat Gran (auto) (0.00-0.30) K/uL INR (0.91-1.10) Sodium (135-149) mmol/L Potassium (3.6-5.1) mmol/L Chloride (96-114) mmol/L Carbon Dioxide (20-32) mmol/L BUN (7-30) mg/dL Creatinine (0.5-1.5) mg/dL Estimated GFR ml/min Glucose (60-115) mg/dL Calcium (8.4-10.6) mg/dL Magnesium (1.5-2.6) mg/dL Total Bilirubin (0.1-1.5) mg/dL AST (12-35) U/L ALT (4-35) U/L Alkaline Phosphatase (40-150) U/L Total Protein (6.0-8.3) g/dL Albumin (3.3-5.0) g/dL Urine Color (Yellow) Urine Appearance (Clear) Urine pH (5.0-8.5) Ur Specific [place] (1.000-1.030) Urine Protein (Negative) Urine Glucose (UA) (Negative) Urine Ketones (Negative) Urine Blood (Negative) Urine Nitrite (Negative) Urine Bilirubin (Negative) Urine Urobilinogen (0.2-1.0) Ur Leukocyte Esterase (Negative) Urine Opiates Screen (Negative) Ur Oxycodone Screen (Negative) Urine Methadone Screen (Negative) Ur Propoxyphene Screen (Negative) Ur Barbiturates Screen (Negative) U Tricyclic Antidepress (Negative) Ur Phencyclidine Scrn (Negative) Ur Amphetamines Screen (Negative) U Methamphetamines Scrn (Negative) U Benzodiazepines Scrn (Negative) Urine Cocaine Screen (Negative) U Marijuana (THC) Screen (Negative) Ur Drug Screen Comment Ethyl Alcohol (0.01-0.03) % SARS-CoV-2 (PCR) Negative SARS-CoV-2 (Negative) Influenza Type A (PCR) Negative PCR FLU A (Negative) Influenza Type B (PCR) Negative PCR FLU B (Negative) Blood Type O Positive Antibody Screen NEGATIVE IMPRESSION: 1. Large left retroperitoneal hematoma. 2. Small left pleural effusion with associated relaxation atelectasis. 3. Compression deformities of the L1 and L3 vertebral bodies are new from the previous MRI and could be acute. Please note that all CT scans at this facility use dose modulation, iterative reconstruction, and/or weight-based dosing when appropriate to reduce radiation dose to as low as reasonably achievable. Dictated by Kg Mcmullen MD @ 03/13/2022 12:27:21 AM Critical Care Time Critical Care Time Total Critical Care Time in Minutes: 70 Discharge Plan Discharge Clinical Impression: Retroperitoneal hemorrhage, Altered mental status, Anemia, Anticoagulated, Closed head injury, Compression fracture Patient Disposition: Xfer Other Discharge Location: [facility], [place], [facility] Condition: Stable Prescriptions: No Action amlodipine 5 mg tablet 5 mg PO DAILY Rx Instructions: to replace lisinopril/hctz blood pressure medication warfarin 5 mg tablet 5 - 7.5 mg PO DAILY Label Comments: Take 7.5mg (5mg x 1.5) every Mon, Sat; 5mg (5mg x 1) all other days in the evening primidone 50 mg tablet 150 mg PO DAILY polyethylene glycol 3350 17 gram/dose powder 17 g PO DAILY PRN pantoprazole 40 mg tablet,delayed release (DR/EC) 40 mg PO DAILY Hold Instructions: Doctor's Order cholecalciferol (vitamin D3) 125 mcg (5,000 unit) tablet 5,000 unit PO DAILY bupropion HCl 150 mg tablet extended release 24 hr 150 mg PO DAILY rosuvastatin 10 mg tablet 10 mg PO DAILY fluoxetine 20 mg capsule 20 mg PO DAILY ferrous sulfate 325 mg (65 mg iron) tablet 325 mg PO DAILY levothyroxine 100 mcg tablet 100 mcg PO DAILY cyanocobalamin (vitamin B-12) 1,000 mcg tablet 1,000 mcg PO DAILY alendronate 70 mg tablet 70 mg PO Q7D Label Comments: TAKE 1 TAB BY MOUTH ONCE WEEKLY IN THE MORNING ON EMPTY STOMACH W/ 8 OZ WATER STAY UPRIGHT FOR 1 HR amiodarone 200 mg tablet 200 mg PO DAILY Label Comments: TAKE 1 TABLET BY MOUTH EVERY DAY furosemide 40 mg tablet 40 mg PO DAILY PRN Label Comments: TAKE 1 TABLET BY MOUTH IN THE MORNING NEEDED FOR SWELLING aspirin 81 mg tablet,chewable 81 mg PO DAILY magnesium oxide 400 mg magnesium capsule 400 mg PO DAILY metoprolol succinate 25 mg Tablet Extended Release 24 Hr 25 mg PO DAILY 30 Days Qty: 30 1RF gabapentin 300 mg capsule 300 mg PO TID Qty: 90 2RF calcitonin (salmon) 200 unit/actuation [place],Non-Aerosol 1 spray intranasal HS 30 Days Qty: 0 1RF magnesium oxide 400 mg (241.3 mg magnesium) Tablet 400 mg PO DAILY 30 Days Qty: 30 1RF lidocaine 5 % Adhesive Patch,Medicated 1 patch transdermal Q24H 30 Days Qty: 10 2RF fentanyl 25 mcg/hr Patch 72 Hour 1 patch transdermal Q72H 15 Days Qty: 5 0RF Hold Instructions: Doctor's Order acetaminophen 325 mg capsule 650 mg PO QID Qty: 200 1RF hydroxyzine HCl 25 mg tablet 25 mg PO TID PRN (Reason: pain) Qty: 20 1RF Stand Alone Forms: [facility] Info Instructions
[2022-03-13 01:30] VITALS: BP 127/58; PULSE 76; RESP 16; O2SAT 98
[2022-03-13] MEDS: PHYTONADIONE (VIT K1) 5 MG in 0.9 % SODIUM CHLORIDE 50 ml 50 ML 100 MG IVPB (01:40)
[2022-03-13 01:42] LABS: Mean Corpuscular HGB Conc 32 gm/dL (32-36); Mean Corpuscular Hemoglobin 36 pg (26-34); Mean Corpuscular Volume 112 fL (80-100); Platelet Count* 135 K/uL (140-440); Red Blood Count 1.79 m/uL (4.00-5.20)
[2022-03-13 01:47] LABS: Hemoglobin* 6.4 gm/dL (12.0-16.0); Slide Review Reflex No
[2022-03-13 02:00] VITALS: BP 135/73; PULSE 74; RESP 20; O2SAT 98
--- NOTE | 2022-03-13 02:00 | ED.NURSE ---
Report to DAGMAR Kirk, at [facility].
[2022-03-13] MEDS: ONDANSETRON 2 MG/ML inj 4 MG IVP (02:13)
[2022-03-13] MEDS: MORPHINE 4 MG/ML INJ IVP (02:14)
--- NOTE | 2022-03-13 02:20 | ED.NURSE ---
Report to Jen Manager Machine, who accepts transfer of patient care. Patient left department via [facility] cot en route to [facility].
[2022-03-13 03:51] LABS: Amphetamine Screen Urine Negative (Negative); Benzodiazepines Screen Urine Negative (Negative); Cannabinoid Screen Urine Negative (Negative); Cocaine Screen Urine Negative (Negative); Methadone Screen Urine Negative (Negative); Methamphetamines Screen Urine Negative (Negative); Opiate Screen Urine Negative (Negative); Oxycodone Screen Urine Negative (Negative); Phencyclidine Screen Urine Negative (Negative); Tricyclic Antidepressant Urine Negative (Negative)
--- NOTE | 2022-03-13 03:56 | ED.NURSE ---
Positive urine toxicology result called. Md notified. Patient positive for barbiturates. Primidone is noted on the patient's medication list.
[2022-03-13 05:12] LABS: Barbiturate Screen Urine POSITIVE (Negative)
== END 2022-03-13 02:20 | disposition other institution (70) ==
PROVIDERS: Emergency Provider Family Medicine; PCP Family Medicine
DX: K66.1 Hemoperitoneum (principal); R41.82 Altered mental status, unspecified; D64.9 Anemia, unspecified; Z79.01 Long term (current) use of anticoagulants; S32.019A Unspecified fracture of first lumbar vertebra, initial encounter for closed fracture; S32.039A Unspecified fracture of third lumbar vertebra, initial encounter for closed fracture; S09.90XA Unspecified injury of head, initial encounter; W18.30XA Fall on same level, unspecified, initial encounter; Z91.81 History of falling; Y93.9 Activity, unspecified; Y92.013 Bedroom of single-family (private) house as the place of occurrence of the external cause; Y99.8 Other external cause status; R79.1 Abnormal coagulation profile
CPT/HCPCS: 36415; 70450; 71260; 72125; 72128; 72131; 74177; 80053; 80306; 81003; 82077; 83735; 85025; 85027; 85610; 86850; 86900; 86901; 87502; 87635; 93005; 99284; 99291; G0390; J2270; J2405; J3430; J7030; J7168; Q9967

== ENCOUNTER 2022-03-13 01:47 | Outpatient (CLI) | payer OTHER, SELFPAY | END 2022-03-13 01:48 | disposition home or self-care (01) | LOC: AMB 03-19 20:32 | PROVIDERS: PCP Family Medicine; Visit Provider Family Medicine | DX: S36.89 Injury of other intra-abdominal organs (principal); J90 Pleural effusion, not elsewhere classified | CPT/HCPCS: A0425; A0427 ==

== ENCOUNTER 2022-12-22 11:15 | Outpatient (RCR) | payer OTHER, SELFPAY ==
--- NOTE | 2022-12-14 15:16 | PT.OPE ---
PT [facility] Outpatient Eval PT [facility] Outpatient Eval Start: 12/14/22 13:10 Freq: Status: Active Protocol: Document 12/14/22 13:11 GLORY (Rec: 12/14/22 15:12 GLORY Desktop) E-signed By Sebastien Diaz, PT, ATC Physical Therapy Outpatient Evaluation Insurance Information Insurance Name Medicare B Medical Diagnosis M70.61 Trochanteric bursitis, right hip M70.62 Trochanteric bursitis, left hip M76.891 Other specified enthesopathies of right lower limb Treating Diagnosis R knee pain R and L hip pain and stiffness low back pain Mobility deficits Referring MD Val[place] Subjective Subjective Kendra Jeong presents with an extensive list of symptoms and performance deficits. 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 She sustained a series of lumbar 1-4 vertebrae compression fractures during a fall in February of 2022. Bilateral hip soreness and tightness has gradually worsened over the past couple of months. All mobility, standing, transfers and ADL's are severely effected she says. History of TIA's that she believes are the caused of her four falls over the past two years. Pain Comments R knee: rest 1-2/10, high 8/10 with all transfers, squats, stairs R and L hip: rest0/10, high 7/ 10 during bed mobility and transfers lower back: average 4/10, high 9/10 with all transfers from sitting to standing, sustained standing and walking Date of Last Physician Visit 11/29/22 Current Work Status Retired Precautions Therapy Limitations/Systems Review Affect,Cognition,Hearing Assessment Assessment/Impression Kendra is a pleasant 77 year old woman who resides locally with her in their home . She is struggling with most ADL's and recreational activity because of R knee pain, R and L hip pain + stiffness and lower back pain. She says her TKA occurred in October of 2020 yet the note from the MD lists 2021 as the surgical date. She did not attend outpatient therapy, rather home therapy where ROM, strength and ADL's were worked on. She doesn't think the knee ever stopped hurting since the procedure. Multiple falls over the past two years contributed to her lumbar compression fractures which likely influence advanced her spinal degeneration and worsened her posture. Her compensation for both the R knee and back symptoms over the past couple years has likely influenced her hip soft tissue condition (diagnostics did not identify OA). She stands with excessive thoracic kyphosis, rounded shoulders and forward head. Trunk ROM is good into flexion yet very limited in remaining back patterns, -75%. The R knee appears normal yet atrophy presence exists, R >L. Strength is measured at 4+/5 for EXT and FLEX while quad setting is 3/5. ROM 0-120 degrees with pain at deep flexion. Tender around patella and into quad tendon. Hip ROM is very good with IR/ER 15/35 bilaterally. Tender-mild over greater trochanters and gluteal muscle insersitons bilaterally. Hip ABD weakness, 3/5. Great difficulty exists with performing a bridge or pelvic tilt indicating poor [id number] muscle recruitment. Walking exhibits no trunk: pelvis rotation and minimal UE swing. Unable to sit to/from stand without UE assistance. A skilled PT program is definitely encouraged as multiple areas of weakness and deconditioning exist in Abiodun LE's, hips and trunk region. This weakness likely contributes to her discomfort and adds to her risk of falling. Postural sway parameters and balance also need attention. Primary Functional Limitations Transfers Standing upright Standing durations > 5 min Walking Squatting Transfers Stairs Plan of Care Rehabilitation Potential Fair Physical Therapy Goals 1.Indepenendent and correct performance with home ex program. 2.Decrease R knee pain with general walking and transfers to 4/10. 3.Decrease R and L hip pain while moving in bed to 4/10 or less. 4.Improve R and L hip ABD strength to 4/5 or greater to permit ease with standing hip ABD and FLEx assisting dressing. 5.Able to perform 10 consecutive bridges-hip extension from supine. 6.Improved performance and stability when walking upon uneven surfaces-yard. 7.Improved LE, hip and core strength providing improved ease with general ADL's and less fear for falling. Coordination/Communication With Referral Source Treatment Plan/Direct Interventions Gait Training,Manual Therapy, Neuromuscular Re-ed, Therapeutic Activities, Therapeutic Exercises Frequency/Duration 1-2x per week 8-24 weeks Patient Will Be Discharged From Therapy Independent w/HEP, Independently Progressing Evaluation Billing Untimed Code Treatment Minutes 40 PT Eval No Charge No Complexity Moderate Certification Information Initial Certification Date 12/14/22 Ending Certification Date 03/16/23 Provider Signature Shows Agreement With POC & Medical Necessity Physician Signature & Date Requested Please Sign/Date Here Physician Comment/Change : Physician NPI Number #
== END 2023-04-21 23:59 | disposition home or self-care (01) ==
PROVIDERS: PCP Family Medicine; Visit Provider Orthopaedic Surgery Sports Medicine
DX: M70.61 Trochanteric bursitis, right hip (principal); M70.62 Trochanteric bursitis, left hip; R29.898 Other symptoms and signs involving the musculoskeletal system; M76.891 Other specified enthesopathies of right lower limb, excluding foot; M76.892 Other specified enthesopathies of left lower limb, excluding foot; M25.561 Pain in right knee; M25.552 Pain in left hip; M25.551 Pain in right hip; M25.652 Stiffness of left hip, not elsewhere classified; M25.651 Stiffness of right hip, not elsewhere classified; M54.50 Low back pain, unspecified; Z74.09 Other reduced mobility; Z51.89 Encounter for other specified aftercare
CPT/HCPCS: 97110; 97162

== ENCOUNTER 2025-04-27 13:19 | Emergency (ER) | payer MEDICARE, SELFPAY ==
--- OUTSIDE RECORDS SUMMARY | 2025-04-27 13:21 | XMS_ITS | Clinical Summary ---
[facility] Address [address] [place] [address] Care Team Providers Care Waste Minimization Technician Name Role Phone Franklyn Landin MD Primary Care Provider Source Comments You are receiving this document as you are listed as the primary care provider,follow-up provider, or the patient has been referred to you for consultation.This is in compliance with the Medicare and[facility] EHR Incentive Program,which states Providers who transition their patient to another setting of careor provider of care or refers their patient to another provider of care shouldprovide summary care record for each transition of care or referral. [facility] Allergies Active Allergy Reactions Criticality Noted Date Comments Influenza Vaccines Anaphylaxis High 08/10/2015 Medications metoPROLOL succinate (AKA TOPROL XL) 50 MG 24 hour release tablet Take 1 Tab by mouth daily. 30 Tab 11 6 Active simvastatin (AKA ZOCOR) 40 MG tablet Take 1 Tab by mouth daily at bedtime. 90 Tab 4 6 Active levothyroxine (LEVOTHROID) 125 MCG tablet Take 1 Tab by mouth daily. 6 Active terazosin (AKA HYTRIN) 5 MG capsule Take 1 Cap by mouth every evening. 30 Cap 1 6 Active Additional Information Patient not taking.Reported on 07/10/2017 ferrous sulfate 325 (65 FE) MG tabletIndicatio ns:Iron Deficiency Take 325 mg by mouth daily with breakfast. Indications: Iron Deficiency Active aspirin 81 MG tabletIndicatio ns:blood thinner Take 81 mg by mouth daily. Indications: blood thinner Active MELATONIN OR 10 mg daily. 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 Pulse 46 08/10/2015 2:16 PM MOLD MECHANIC Temperature - - Respiratory Rate - - Oxygen Saturation - - Inhaled Oxygen Concentration - - Weight - - Height - - Body Mass Index - - Plan of Treatment Health Maintenance Due Date Last Done Comments Hep C Screening (Preventive Services) 1945 Adult Preventive Visit 1963 Pneumococcal Vaccine 50+ Yrs (1 of 1 - PCV) 1997 Zoster/Shingles Vaccine (1 o f 2) 1997 Dexa 2012 Colonoscopy 06/23/2016 06/23/2006 DTaP/Tdap/Td Vaccine (2 - Tdap) 04/27/2020 04/27/2010, 12/11/1997 RSV Vaccine (1 - 1-dose 75+ series) 2022 COVID-19 Vaccine (2 - 2024-2 6 season) 2025 12/11/2020 Influenza Vaccine (#1) 2025 HepA Vaccine Aged Out No longer eligi ble based on patient's age to complete this topic HepB Vaccine Aged Out No longer eligi ble based on patient's age to complete this topic Hib Vaccine Aged Out No longer eligi ble based on patient's age to complete this topic IPV (Polio) Vaccine Aged Out No longe r eligible based on patient's age to complete this topic MCV4 Vaccine Aged Out No longer eligi ble based on patient's age to complete this topic Meningococcal B Vaccine Aged Out No l onger eligible based on patient's age to complete this topic Insurance HP PREVENTIVE SR PREV ONEVISIT Care Teams Waste Minimization Technician Relationship Specialty Start Date End Date Franklyn Landin MD [id number] [facility] [address] [place] [address] PCP - General Neurology 04/03/20
--- OUTSIDE RECORDS SUMMARY | 2025-04-27 13:21 | XMS_ITS | Clinical Summary ---
Author Organization [employer] [facility] Address [facility] [place] [address] Care Team Providers Care Print Shop Manager Name Role Phone Luis Ryan MD Primary Care Provider Allergies Active Allergy Reactions Criticality Noted Date Comments Covid-19 Vac, Bv (Moderna)(Pf) Other - Describe In Comment Field 12/07/2023 Fluid on the lungs Influenza Virus Vaccines Dyspnea,Anaphylaxis High 04/02/2012 Prednisone Rash Medium 2018 Pneumoc 13-Christen Conj-Dip Cr(Pf) Other - Describe In Comment Field High 09/07/2018 Patient had an Anaphylactic reaction with the Flu Shot, therefore, she does not want Prevnar 13. Medications acetaminophen (TYLENOL) 325 mg tabletIndicati ons:Compressio n fracture of L1 vertebra with routine healing, subsequent encounter Take 3 Tablets (975 mg) by mouth three times daily. PRN Max acetaminophen dose: 4000mg in 24 hrs. 0 2 Active amoxicillin 500 mg tabletIndicati ons:Dental anomaly 4 pills p.o. 1 hour before dentist 12 Tablet 1 4 Active amLODIPine 10 mg tabletIndicati ons:HTN (hypertension) Take 1 Tablet (10 mg) by mouth once daily. 90 Tablet 3 5 Active propranoloL 40 mg tabletIndicati ons:Tremor Take 1 Tablet (40 mg) by mouth two times daily. 180 Tablet 3 5 Active venlafaxine 150 mg Extended-Relea se capsuleIndicat ions:Anxiety and depression Take 1 Capsule (150 mg) by mouth once daily with evening meal. 90 Capsule 3 5 Active warfarin (COUMADIN) 4 mg tabletIndicati ons:Stable central retinal vein occlusion of right eye (HC),Anticoagu lation monitoring, INR range 2-3 Take by mouth 4 mg (4 mg x 1) every day in the evening OR as directed 5 Active levothyroxine (SYNTHROID) 75 mcg tabletIndicati ons:Hypothyroi dism (acquired) Take 1 Tablet (75 mcg) by mouth once daily. 90 Tablet 2 5 Active Active Problems Problem Noted Date Diagnosed Date Stable central retinal vein occlusion of right e ye 12/07/2023 Anticoagulation monitoring, INR range 2-3 2023 Chronic obstructive pulmonary disease 07/30/2021 Chest discomfort 04/29/2021 CKD (chronic kidney disease) stage 3, GFR 30-59 ml/min 01/16/2021 ACP (advance care planning) 01/16/2021 Osteoarthritis 01/10/2021 Large hiatal hernia, symptomatic 01/10/2021 Overview (01/10/2021): Very large - see imaging December 2020. Seen by surgery, Dr. Ashlyn Mack. Considering robotic hiatal hernia repair with Ge/Toupet fundoplication PAF (paroxysmal atrial fibrillation) December 2020 0 01/10/2021 Overview (01/10/2021): In setting of pericarditis and pericardial effusion B12 deficiency 01/04/2021 Effusive constrictive pericarditis December 202005/2021 Overview (01/10/2021): December 2020 s/p pericardiocentesis and drain placement. 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 Anemia 04/21/2010 SELDOVIA (hard of hearing) 04/21/2010 Routine health maintenance 04/21/2010 Overview (01/17/2024): Last cpx-05/30 Last pap smear-05/30 Last breast exam-05/30 Last mammogram-01/14 Last lipid -09/02, LDL-108 Last colonoscopy-06/28 Panic disorder without agoraphobia 01/07/2010 Resolved Problems Problem Noted Date Diagnosed Date Resolved Date Major depressive disorder, r ecurrent severe without psychotic features 12/09/2021 02/01/2022 Anticoagulation monitoring, INR range 2-3 07/20/2021 04/04/2022 CKD (chronic kidney disease) stage 3, GFR 30-59 ml/min 01/10/2021 01/25/2021 THOMAS (acute kidney injury) 01/10/2021 Anxiety 04/03/2018 03/28/2019 Obese 04/21/2010 03/16/2020 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 Encounters Date Type Department Care Team Description 04/23/2025 12:30 PM CDT Office Visit [address] [address] Randall Choi PA Pre-Op Exam (04/25/25, oral surgery,Angi Alonzo Angie, DDHuy) 04/23/2025 11:30 AM CDT Orders Only [address] [address] Lab 04/23/2025 Anticoagulation (warfarin) [address] [address] Nurse, Yasmeen Anticoag Anticoagulation (OV - preop today) 04/23/2025 Travel 03/31/[address] [address] Randall Choi PA Results 03/31/2025 Orders Only [address] [address] Randall Choi PA <No scans attached> 03/28/2025 Anticoagulation (warfarin) [address] [address] Nurse, Ahg Anticoag Anticoagulation 03/27/2025 3:45 PM CDT Orders Only [address] [address] <No scans attached> 03/27/2025 Travel 02/26/[address] [address] Randall Choi PA Results 02/26/2025 Orders Only [address] [address] Randall Choi PA <No scans attached> 02/26/[address] [address] Luis Ryan MD Questions (Letter) 02/26/[address] [address] Randall Choi PA Results (Results) 02/25/2025 Anticoagulation (warfarin) [address] [address] Nurse, Ahg Anticoag Anticoagulation 02/24/2025 11:30 AM CDT Orders Only [address] [address] <No scans attached> 02/24/2025 11:00 AM CDT Office Visit [address] [address] Randall Choi PA Bleeding/Bruising (Increase of bruising ) 02/24/2025 Travel 02/18/2025 Telephone [facility] [id number] [place] [id number] Luis Ryan MD Anticoagulation 02/18/2025 Anticoagulation (warfarin) [facility] [id number] [place] [id number] Nurse, Yasmeen Anticoag Anticoagulation 02/17/2025 1:30 PM CDT Orders Only [address] [address] Lab 02/17/2025 Travel from Last 3 Months Immunizations Immunization Administration Dates Next Due COVID-19 vaccine (Moderna 100mcg/0.5mL) KATHRINE BHATIA 12/11/2020 Td (Age >=7 Years) 12/11/1997 Tdap 04/27/2010 Family History Medical History Relation Name Comments Good Health Brother Hyperlipidemia Father Hypertension Father Psychiatric illness Father Suicidality Maternal Grandfather Cancer Mother lung Unknown Paternal Grandfather Cancer Paternal Grandmother ?? Lupus Sister x 3 stomach issues Sister x 3 Alcoholism Son 1 Jaspal Good Health Son 2 x 2 Relation Name Status Comments Brother Alive Father Maternal Grandfather Maternal Grandmother Mother Paternal Grandfather Paternal Grandmother Sister x 3 Alive Son 1 Jaspal Alive Son 2 x 2 Alive Social History Tobacco Use Types Packs/Day Years Used Date Smoking Tobacco: Former Cigarettes 1 55.7 1 965 - 2020 Smokeless Tobacco: Never Tobacco Cessation:Counseling Given: Not Answered Alcohol Use Standard Drinks/Week Comments Yes 0 (1 standard drink = 0.6 oz pur e alcohol) occasional PHQ-2 Answer Date Recorded PHQ-2 TOTAL SCORE 5 12/19/2024 Social Connections Answer Date Recorded Do you often feel lonely or isolated from those around you? 4 12/19/2024 Financial Resource Strain Answer Date R ecorded Difficulty of Paying Living Expenses 3 12/19/2024 Difficulty of Paying Living Expenses Not on file 12/19/2024 Food Insecurity Answer Date Recorded Do you worry your food will run out before you are able to buy more? 1 12/19/2024 Transportation Needs Answer Date Record ed Does lack of transportation keep you from medica l appointments? 1 12/19/2024 Does lack of transportation keep you from work, meetings or getting things that you need? 1 12/19/2024 Housing Stability Answer Date Recorded What is your housing situation today? 1 12/19/2024 Utilities Answer Date Recorded Do you have trouble paying f or utilities (for example, heat, electricity, water, phone)? 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 Gender Identity Not on file Sexual Orientation Not on file Obstetrics History Last Filed Vital Signs Vital Sign Reading Time Taken Comments Blood Pressure 114/70 04/23/2025 12:44 PM CDT Pulse 61 04/23/2025 12:44 PM CDT Temperature 36.4 C (97.5 F) 04/23/2025 12:44 PM CDT Respiratory Rate 18 05/19/2022 2:20 PM CDT Oxygen Saturation 99% 04/23/2025 12:44 PM CDT Inhaled Oxygen Concentration - - Weight 69 kg (152 lb 3.2 oz) 04/23/2025 12:44 PM CDT with shoes Height 157.5 cm (5' 2) 04/23/2025 12:44 PM CDT with shoes Body Mass Index 27.84 04/23/2025 12:44 PM CDT Plan of Treatment Upcoming Encounters Date Type Department Care Team (Late st Contact Info) Description 05/01/2025 1:00 PM CDT Orders Only [facility] [id number] [place] [id number] 06/02/2025 11:00 AM PROCESS CONTROL PROGRAMMER Orders Only [address] [address] Health Maintenance Due Date Last Done Comments Hepatitis C screening for age 18-79 1963 Zoster (shingles) series for age 50+ (1 of 2) 1997 Tetanus booster 04/27/2020 04/27/2010, 12/11/[address] (for lung CA) age 50-80 01/16/2022 01/16/2021, 12/23/2020 RSV vaccine for adults or (1 - 1-dose 75+ series) 2022 COVID-19 vaccine series (2 - season) 2025 12/11/2020 Depression screening for age 12+ 12/20/2025 12/20/2024, 12/19/2024, 12/11/2023, Additional history exists Medicare Wellness for age 65+ 12/20/2025 12/19/2024, 12/07/2023, 08/28/2018, Additional history exists BMI (ht and wt on same day) for age 18+ 04/23/2026 04/23/2025, 12/19/2024, 2024, Additional history exists DEXA/DXA scan for age 65+ Completed 2023, 09/03/2018, 05/23/2012 Hepatitis B series for 19+ Aged Out N o longer eligible based on patient's age to complete this topic Pneumococcal series for age 50+ Discontinued Procedures Procedure Name Priority Date/Time Associated Diagnosis Comments PROTIME-INR Routine 04/23/2025 11:39 AM CDT Stable central retinal vein occlusion of right eye (HC) Anticoagulation monitoring, INR range 2-3 PROTIME-INR Routine 03/27/2025 4:35 PM CDT Stable central retinal vein occlusion of right eye (HC) Anticoagulation monitoring, INR range 2-3 T4,FREE Routine 03/27/2025 3:41 PM CDT Elevated ferritin FERRITIN Routine 03/27/2025 3:41 PM CDT Elevated ferritin TSH WITH REFLEX Routine 03/27/2025 3:41 PM CDT Hypothyroidism (acquired) CBC WITH AUTO DIFFERENTIAL Routine 02/24/2025 12:18 PM CDT Easy bruising Anemia, unspecified type CBC WITH AUTO DIFFERENTIAL Routine 02/24/2025 12:18 PM CDT Easy bruising Anemia, unspecified type TSH WITH REFLEX Routine 02/24/2025 12:18 PM CDT Hypothyroidism, unspecified type VITAMIN B12 Routine 02/24/2025 12:18 PM CDT B12 deficiency FERRITIN Routine 02/24/2025 12:18 PM CDT Anemia, unspecified type IRON PLUS IRON BINDING CAP Routine 02/24/2025 12:18 PM CDT Anemia, unspecified type PROTIME-INR Routine 02/24/2025 12:18 PM CDT Anticoagulation monitoring, INR range 2-3 Easy bruising PROTIME-INR Routine 02/17/2025 1:16 PM CDT PAF (paroxysmal atrial fibrillation) December 2020 XR DXA BONE DENSITY 2 SITES AXIAL Routine 01/02/2024 1:28 PM CDT Osteoporosis without current pathological fracture CT CHEST PE STUDY STAT 01/16/2021 3:5 4 PM CDT from Last 3 Months or Most Recently Relevant to Health Maintenance Results * (ABNORMAL) PROTIME-INR [[id number]] - Standing Order (04/23/2025 11:39 AM CDT) Only the most recent of4 resultswithin the time period is included. INR 1.8(H) <1.3 04/23/2025 2:04 PM CDT [facility] PROTIME 21.2(H) 10.6 - 12.4 sec 04/23/2025 2:04 PM CDT [facility] Blood BLOOD SPECIMEN / Unknown [facility] / Unknown 04/23/2025 11:39 AM CDT 04/23/2025 11:[address] [facility] - 04/23/2025 2:04 PM CDT Therapeutic Range 2.0-3.0 for most anticoagulated patients 2.5-3.5 or 4.0 for high risk patients The INR is only used for patients on stable oral anticoagulant therapy. It makes no significant contribution to the diagnosis or treatment of patients whose Protime is prolonged for other reasons. INR results are increased when heparin levels exceed 1.0 U/mL, which corresponds to an aPTT >125 seconds if the patient is on UFH. Luis Ryan MD HEMATOLOGY Final Result Performing Organization Address [facility]/ZIP Co de Phone Number [facility] [address] [place] [address], [place] * (ABNORMAL) TSH WITH REFLEX (03/27/2025 3:41 PM CDT) Only the most recent of2 resultswithin the time period is included. TSH W/REFLEX TO FT4 0.18(L) 0.40 - 4.50 mIU/L 03/28/2025 9:23 AM CDT [facility] Blood BLOOD SPECIMEN / Unknown [facility] / Unknown 03/27/2025 3:41 PM CDT 03/27/2025 3:41 PM CDT Randall BUNCH CHEMISTRY Final Resul t Performing Organization Address [facility] de Phone Number [facility] [address] [address], [place] [phone] * T4,FREE (03/27/2025 3:41 PM CDT) T4, FREE 1.8 0.8 - 1.8 ng/dL 03/28/2025 9:23 AM CDT [facility] Blood BLOOD SPECIMEN / Unknown [facility] / Unknown 03/27/2025 3:41 PM CDT 03/27/2025 3:41 PM CDT Randall BUNCH CHEMISTRY Final Resul t Performing Organization Address [facility] Co de Phone Number [facility] [address] [place] [id number], [place] [phone] * (ABNORMAL) FERRITIN (03/27/2025 3:41 PM CDT) Only the most recent of2 resultswithin the time period is included. FERRITIN 529(H) 16 - 288 ng/mL 03/28/2025 4:10 AM CDT [facility] Blood BLOOD SPECIMEN / Unknown [facility] / Unknown 03/27/2025 3:41 PM CDT 03/27/2025 3:41 PM CDT Randall BUNCH CHEMISTRY Final Resul t [facility] [address] [place] [address], * (ABNORMAL) CBC WITH AUTO DIFFERENTIAL (02/24/2025 12:18 PM CDT) WHITE BLOOD CELL COUNT 8.2 3.8 - 10.8 Thousand/ uL 02/25/2025 3:08 AM CDT [facility] RED BLOOD CELL COUNT 3.42(L) 3.80 - 5.10 Million/u L 02/25/2025 3:08 AM CDT [facility] HEMOGLOBIN 11.7 11.7 - 15.5 g/dL 02/25/2025 3:08 AM CDT [facility] HEMATOCRIT 36.1 35.0 - 45.0 % 02/25/2025 3:08 AM CDT [facility] MCV 105.6(H) 80.0 - 100.0 fL 02/25/2025 3:08 AM CDT [facility] MCH 34.2(H) 27.0 - 33.0 pg 02/25/2025 3:08 AM CDT [facility] MCHC 32.4 32.0 - 36.0 g/dL 02/25/2025 3:08 AM CDT [facility] Comment: For adults, a slight decrease in the calculated MCHC value (in the range of 30 to 32 g/dL) is most likely not clinically significant; however, it should be interpreted with caution in correlation with other red cell parameters and the patient's clinical condition. RDW 12.9 11.0 - 15.0 % 02/25/2025 3:08 AM CDT [facility] PLATELET COUNT 170 140 - 400 Thousand/ uL 02/25/2025 3:08 AM CDT [facility] MPV 11.6 7.5 - 12.5 fL 02/25/2025 3:08 AM CDT [facility] NEUTROPHILS 66.8 % 02/25/2025 3:08 AM CDT [facility] LYMPHOCYTES 24.3 % 02/25/2025 3:08 AM CDT [facility] MONOCYTES 8.0 % 02/25/2025 3:08 AM CDT [facility] EOSINOPHILS 0.5 % 02/25/2025 3:08 AM CDT [facility] BASOPHILS 0.4 % 02/25/2025 3:08 AM CDT [facility] ABSOLUTE NEUTROPHILS 5478 1500 - 7800 cells/uL 02/25/2025 3:08 AM CDT [facility] ABSOLUTE LYMPHOCYTES 1993 850 - 3900 cells/uL 02/25/2025 3:08 AM CDT [facility] ABSOLUTE MONOCYTES 656 200 - 950 cells/uL 02/25/2025 3:08 AM CDT [facility] ABSOLUTE EOSINOPHILS 41 15 - 500 cells/uL 02/25/2025 3:08 AM CDT [facility] ABSOLUTE BASOPHILS 33 0 - 200 cells/uL 02/25/2025 3:08 AM CDT [facility] Blood BLOOD SPECIMEN / Unknown [facility] / Unknown 02/24/2025 12:18 PM CDT 02/24/2025 12:18 PM CDT us Randall BUNCH HEMATOLOGY Final Resul t [facility] [place] [address] [address], * (ABNORMAL) IRON PLUS IRON BINDING CAP (02/24/2025 12:18 PM CDT) [facility] IRON, TOTAL 165(H) 45 - 160 mcg/dL 02/25/2025 4:27 AM CDT [facility] IRON BINDING CAPACITY 192(L) 250 - 450 mcg/dL (calc) 02/25/2025 4:27 AM CDT [facility] % SATURATION 86(H) 16 - 45 % (calc) 02/25/2025 4:27 AM CDT [facility] Blood BLOOD SPECIMEN / Unknown [facility] / Unknown 02/24/2025 12:18 PM CDT 02/24/2025 12:18 PM CDT Randall BUNCH CHEMISTRY Final Resul t Performing Organization Address [facility] Phone Number [employer] [address] [phone], * VITAMIN B12 (02/24/2025 12:18 PM CDT) [facility] VITAMIN B12 229 200 - 1100 pg/mL 02/25/2025 4:55 AM CDT [facility] Comment: Please Note: Although the reference range for vitamin B12 is 200-1100 pg/mL, it has been reported that between 5 and 10% of patients with values between 200 and 400 pg/mL may experience neuropsychiatric and hematologic abnormalities due to occult B12 deficiency; less than 1% of patients with values above 400 pg/mL will have symptoms. Blood BLOOD SPECIMEN / Unknown [facility] / Unknown 02/24/2025 12:18 PM CDT 02/24/2025 12:18 PM CDT Randall BUNCH CHEMISTRY Final Resul t Performing Organization Address [facility] Phone Number [employer] [address] [phone], * XR DXA BONE DENSITY 2 SITES AXIAL (01/02/2024 1:28 PM CDT) Anatomical Region Laterality Modality Spine, HIPS, HIPL, HIPR Other 01/02/2024 1:28 PM CDT Impressions 01/02/2024 3:49 PM CDT IMPRESSION: OSTEOPOROSIS. T score meets the WHO criteria for osteoporosis at one or more measured sites. The risk of osteoporotic fracture increases approximately two-fold for each standard deviation decrease in T-score. Narrative 01/02/2024 3:49 PM CDT EXAM: BONE DENSITY LOCATION: [facility] DATE: 01/02/2024 INDICATION: BMD screening, follow-up. DEMOGRAPHICS: Age- 78 years. Gender- Female. Menopausal status- Postmenopausal. COMPARISON: 09/03/2018. TECHNIQUE: Dual-energy x-ray absorptiometry (DXA) performed with routine technique. FINDINGS: DXA RESULTS -Lumbar Spine: L1-L4: BMD: 1.025 g/cm2. T-score: -0.2. Z-score: 2.3. Degenerative change may artifactually increase BMD. -RIGHT Hip Total: BMD: 0.488 g/cm2. T-score: -3.7. Z-score: -1.8. -RIGHT Hip Femoral neck: BMD: 0.401 g/cm2. T-score: -4.0. Z-score: -1.9. -LEFT Hip Total: BMD: 0.552 g/cm2. T-score: -3.2. Z-score: -1.3. -LEFT Hip Femoral neck: BMD: 0.462 g/cm2. T-score: -3.5. Z-score: -1.3. WHO T-SCORE CRITERIA -Normal: T score at or above -1 SD -Osteopenia: T score between -1 and -2.5 SD -Osteoporosis: T score at or below -2.5 SD The World Health Organization (WHO) criteria is applicable to perimenopausal females, postmenopausal females, and men aged 50 years or older. INTERVAL CHANGE -There has been a 4.3% increase in lumbar spine BMD. -There has been a 18.5% decrease in the right hip BMD. -There has been a 17.6% decrease in the left hip BMD. FRACTURE RISK -The FRAX risk calculator is not applicable due to osteoporosis. RECOMMENDATIONS The patient's BMD is consistent with osteoporosis, and he/she is at increased fracture risk. If not currently being treated for low BMD, this would merit treatment according to the Bone Health and Osteoporosis Foundation. Procedure Note Argelia Vasquez PA - 01/03/2024 EXAM: BONE DENSITY LOCATION: [facility] [place] [facility] DATE: 01/02/2024 INDICATION: BMD screening, follow-up. DEMOGRAPHICS: Age- 78 years. Gender- Female. Menopausal status- Postmenopausal. COMPARISON: 09/03/2018. TECHNIQUE: Dual-energy x-ray absorptiometry (DXA) performed with routine technique. FINDINGS: DXA RESULTS -Lumbar Spine: L1-L4: BMD: 1.025 g/cm2. T-score: -0.2. Z-score: 2.3. Degenerative change may artifactually increase BMD. -RIGHT Hip Total: BMD: 0.488 g/cm2. T-score: -3.7. Z-score: -1.8. -RIGHT Hip Femoral neck: BMD: 0.401 g/cm2. T-score: -4.0. Z-score: -1.9. -LEFT Hip Total: BMD: 0.552 g/cm2. T-score: -3.2. Z-score: -1.3. -LEFT Hip Femoral neck: BMD: 0.462 g/cm2. T-score: -3.5. Z-score: -1.3. WHO T-SCORE CRITERIA -Normal: T score at or above -1 SD -Osteopenia: T score between -1 and -2.5 SD -Osteoporosis: T score at or below -2.5 SD The World Health Organization (WHO) criteria is applicable to perimenopausal females, postmenopausal females, and men aged 50 years or older. INTERVAL CHANGE -There has been a 4.3% increase in lumbar spine BMD. -There has been a 18.5% decrease in the right hip BMD. -There has been a 17.6% decrease in the left hip BMD. FRACTURE RISK -The FRAX risk calculator is not applicable due to osteoporosis. RECOMMENDATIONS The patient's BMD is consistent with osteoporosis, and he/she is at increased fracture risk. If not currently being treated for low BMD, this would merit treatment according to the Bone Health and Osteoporosis Foundation. IMPRESSION: IMPRESSION: OSTEOPOROSIS. T score meets the WHO criteria for osteoporosis at one or more measured sites. The risk of osteoporotic fracture increases approximately two-fold for each standard deviation decrease in T-score. us Luis Ryan MD DEXA Final Result * CT CHEST PE STUDY (01/16/2021 3:54 PM CDT) Anatomical Region Laterality Modality CHEST, THORAX, HEART Computed To mography 01/16/2021 4:42 PM CDT Narrative 01/16/2021 4:42 PM CDT For Patients: As a result of the Cures Act, medical imaging exams and procedure reports are released immediately into your electronic medical record. You may view this report before your referring provider. If you have questions, please contact your health care provider. INDICATION: SOB. Rule out pulmonary embolism. TECHNIQUE: Volumetric helical scanning of the thorax was performed during infusion of 100 cc of Visipaque 320 contrast material IV, timing optimized for pulmonary arterial opacification. Coronal and sagittal reconstructions were obtained. COMPARISON: Chest CT of 12/23/2020 FINDINGS: The images are of acceptable quality and demonstrate uniform vascular enhancement within the pulmonary arteries. No pulmonary arterial filling defect is identified. The heart size is normal. Calcified coronary arterial plaque is demonstrated. There is a pericardial effusion of moderate size, which has increased in size. A left-sided pleural effusion of moderate size is not demonstrated as well as a new small right pleural effusion. Passive atelectasis is present in the lower lobes. The lungs are otherwise clear. No significant airway abnormality is demonstrated. A very large hiatal hernia is again noted. No mediastinal or hilar lymphadenopathy is evident. IMPRESSION: 1. Negative for pulmonary embolism. 2. New left-sided pleural effusion of moderate size and new small left-sided pleural effusion with passive atelectasis in the lower lobes. 3. Pericardial effusion of moderate size, increased from the previous study. 4. Very large hiatal hernia. Please note that all CT scans at this facility use dose modulation, iterative reconstruction, and/or weight-based dosing when appropriate to reduce radiation dose to as low as reasonably achievable. Dictated by Chema Thompson MD @ 01/16/2021 4:42:[address] Chema Thompson @ Jan 16 2021 4:42PM Procedure Note Chema Thompson MD - 01/16/2021 For Patients: As a result of the Cures Act, medical imagingexams and procedure reports are released immediately into your electronicmedical record. You may view this report before your referring provider.If you have questions, please contact your health care provider. INDICATION: SOB. Rule out pulmonary embolism. TECHNIQUE: Volumetric helical scanning of the thorax was performed during infusion of100 cc of Visipaque 320 contrast material IV, timing optimized forpulmonary arterial opacification. Coronal and sagittal reconstructionswere obtained. COMPARISON: Chest CT of 12/23/2020 FINDINGS: The images are of acceptable quality and demonstrate uniform vascularenhancement within the pulmonary arteries. No pulmonary arterial fillingdefect is identified. The heart size is normal. Calcified coronary arterial plaque isdemonstrated. There is a pericardial effusion of moderate size, which hasincreased in size. A left-sided pleural effusion of moderate size is not demonstrated as wellas a new small right pleural effusion. Passive atelectasis is present inthe lower lobes. The lungs are otherwise clear. No significant airwayabnormality is demonstrated. A very large hiatal hernia is again noted. No mediastinal or hilar lymphadenopathy is evident. IMPRESSION: 1. Negative for pulmonary embolism. 2. New left-sided pleural effusion of moderate size and new smallleft-sided pleural effusion with passive atelectasis in the lower lobes. 3. Pericardial effusion of moderate size, increased from the previousstudy. 4. Very large hiatal hernia. Please note that all CT scans at this facility use dose modulation,iterative reconstruction, and/or weight-based dosing when appropriate toreduce radiation dose to as low as reasonably achievable. Dictated by Chema Thompson MD @ 01/16/2021 4:42:[address] 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 * Full Code (Latest Code Status on File) Date Activated Date Inactivated Comments 08/04/2021 12:27 PM 08/04/2021 7:03 PM Question Answer Comments Code Status Discussion: Reviewed Preferences * Full Code Date Activated Date Inactivated Comments 08/03/2021 11:36 AM 08/04/2021 12:27 PM Question Answer Comments Code Status Discussion: Unable to Assess Preferences, Provider to review later * Full Code Date Activated Date Inactivated Comments 04/29/2021 5:52 PM 04/30/2021 8:59 PM Question Answer Comments Code Status Discussion: Per Existing Order * Full Code Date Activated Date Inactivated Comments 01/16/2021 10:12 PM 01/20/2021 5:21 PM Question Answer Comments Code Status Discussion: Not Discussed * Full Code Date Activated Date Inactivated Comments 01/02/2021 12:17 AM 01/11/2021 3:24 PM Question Answer Comments Code Status Discussion: Discussed Care Teams Print Shop Manager Relationship Specialty [place] [id number] [place] [address] PCP - General 4/13/10
[2025-04-27 13:28] VITALS: BP 151/99; PULSE 53; RESP 16; TEMP 36.4; O2SAT 98; BMI 28.3
--- NOTE | 2025-04-27 13:51 | ED.LOWEXIN ---
HPI - Extremity Injury (Lower) General Time Seen by Provider: 13:51 Date Seen: 04/27/25 Chief Complaint: Extremity Pain/Injury, Lower Stated Complaint: Painful right knee Time Seen by Provider: 04/27/25 13:48 Source: patient and RN notes reviewed Mode of arrival: ambulatory Limitations: no limitations History of Present Illness HPI Narrative: This 80-year-old female is coming in in a wheelchair with complaint new increased right knee pain. She states she can barely walk on it. She had a right knee replacement in 2020, has had knee pain since. On Monday she had dental extractions, did take her preprocedural antibiotics. Since then, she has noticed increasing knee pain. She states sometimes the knee will swell, she feels it did swell and did use some ice in the interim. That has helped the swelling, is down now. She notes no fevers or chills, no night sweats. She does get some pain going down into the leg and radiating backwards up towards the hip. Looking in her records she has had some trochanteric bursitis bilaterally. Maybe does hurt a little bit in the outer hip most of her pain is centered at the knee, she feels it all the way around. She takes Tylenol and hydrocodone, this is not controlling the pain. She is not noting any significant low back pain or pain that seems to be radiating down the leg, she really feels like the pain is emanating from the knee. Related Data Home Medications ?Medication ?Instructions ?Recorded ?Confirmed amlodipine 5 mg tablet 5 mg PO DAILY 01/26/22 03/13/22 bupropion HCl 150 mg 24 hr tablet, 150 mg PO DAILY 01/26/22 03/13/22 extended release cholecalciferol (vitamin D3) 125 5,000 unit PO DAILY 01/26/22 03/13/22 mcg (5,000 unit) tablet cyanocobalamin (vitamin B-12) 1,000 mcg PO DAILY 01/26/22 03/13/22 1,000 mcg tablet ferrous sulfate 325 mg (65 mg 325 mg PO DAILY 01/26/22 03/13/22 iron) tablet fluoxetine 20 mg capsule 20 mg PO DAILY 01/26/22 03/13/22 levothyroxine 100 mcg tablet 100 mcg PO DAILY 01/26/22 03/13/22 pantoprazole 40 mg tablet,delayed 40 mg PO DAILY 01/26/22 03/13/22 release Held on 03/13/22. Instructions: Doctor's Order polyethylene glycol 3350 17 17 g PO DAILY PRN 01/26/22 03/13/22 gram/dose oral powder primidone 50 mg tablet 150 mg PO DAILY 01/26/22 03/13/22 rosuvastatin 10 mg tablet 10 mg PO DAILY 01/26/22 03/13/22 warfarin 5 mg tablet 5 - 7.5 mg PO DAILY 01/26/22 03/13/22 alendronate 70 mg tablet 70 mg PO Q7D 02/16/22 03/13/22 amiodarone 200 mg tablet 200 mg PO DAILY 02/16/22 03/13/22 furosemide 40 mg tablet 40 mg PO DAILY PRN 02/16/22 03/13/22 aspirin 81 mg chewable tablet 81 mg PO DAILY 02/17/22 03/13/22 magnesium oxide 400 mg PO DAILY 02/19/22 03/13/22 amlodipine 10 mg tablet 10 mg PO DAILY 04/27/25 04/27/25 hydrocodone 5 mg-acetaminophen 325 tab PO 04/27/25 mg tablet levothyroxine 75 mcg tablet 75 mcg PO DAILY 04/27/25 04/27/25 propranolol 40 mg tablet 40 mg PO BID 04/27/25 04/27/25 venlafaxine 150 mg 150 mg PO DAILY 04/27/25 04/27/25 capsule,extended release 24 hr warfarin 4 mg tablet 4 mg PO QPM 04/27/25 04/27/25 Previous Rx's ?Medication ?Instructions ?Recorded acetaminophen 325 mg capsule 650 mg (2 x 325 mg) PO QID #200 02/22/22 caps calcitonin (salmon) 200 1 spray intranasal HS 30 days #0 mL 02/22/22 unit/actuation nasal spray fentanyl 25 mcg/hr transdermal 1 patch transdermal Q72H 15 days 02/22/22 patch #5 ea Held on 03/13/22. Instructions: Doctor's Order gabapentin 300 mg capsule 300 mg PO TID #90 caps 02/22/22 hydroxyzine HCl 25 mg tablet 25 mg PO TID PRN pain #20 tabs 02/22/22 lidocaine 5 % topical patch 1 patch transdermal Q24H 30 days 02/22/22 #10 ea magnesium oxide 400 mg (241.3 mg 400 mg PO DAILY 30 days #30 tabs 02/22/22 magnesium) tablet metoprolol succinate 25 mg 25 mg PO DAILY 30 days #30 tabs 02/22/22 tablet,extended release 24 hr Allergies Allergy/AdvReac Type Severity Reaction Status Date / Time pneumococcal vaccine (From Allergy Severe Anaphylaxis Verified 11/29/22 13:12 Prevnar 13 (PF)) prednisone Allergy Mild Rash Verified 11/29/22 13:12 COVID-19 vacc, bv (Orig, Allergy Anaphylaxis Verified 11/29/22 13:12 Omicron BA.4/5) (Moderna) (From Moderna COVID Bival(6y up)(PF)) Influenza A virus Allergy Severe Anaphylaxis Uncoded 11/29/22 13:12 Review of Systems Narrative: Per HPI. PFSH PFS Medical History Polypharmacy ?Z79.899 - Other technician terminal and repeater (current) drug therapy (ICD-10) Disability of walking ?R26.2 - Difficulty in walking, not elsewhere classified (ICD-10) Right groin pain ?R10.31 - Right lower quadrant pain (ICD-10) Altered mental status ?R41.82 - Altered mental status, unspecified (ICD-10) Restrictive pericarditis ?I31.8 - Other specified diseases of pericardium (ICD-10) Vitamin B12 deficiency ?E53.8 - Deficiency of other specified B group vitamins (ICD-10) History of alcoholism ?F10.21 - Alcohol dependence, in remission (ICD-10) COPD (chronic obstructive pulmonary disease) ?J44.9 - Chronic obstructive pulmonary disease, unspecified (ICD-10) Stage 3 chronic kidney disease ?N18.30 - Chronic kidney disease, stage 3 unspecified (ICD-10) Chronic anticoagulation ?Z79.01 - prison (current) use of anticoagulants (ICD-10) Paroxysmal atrial fibrillation ?I48.0 - Paroxysmal atrial fibrillation (ICD-10) Anemia ?D64.9 - Anemia, unspecified (ICD-10) Hiatal hernia ?K44.9 - Diaphragmatic hernia without obstruction or gangrene (ICD-10) Osteoporosis ?M81.0 - Age-related osteoporosis without current pathological fracture (ICD-10) Depression ?F32.A - Depression, unspecified (ICD-10) Panic disorder ?F41.0 - Panic disorder [episodic paroxysmal anxiety] (ICD-10) Hypothyroidism ?E03.9 - Hypothyroidism, unspecified (ICD-10) Spinal stenosis ?M48.00 - Spinal stenosis, site unspecified (ICD-10) Tremors of nervous system ?R25.1 - Tremor, unspecified (ICD-10) Hyperlipidemia ?E78.5 - Hyperlipidemia, unspecified (ICD-10) Thyroid disease ?E07.9 - Disorder of thyroid, unspecified (ICD-10) Lumbar radicular pain ?M54.16 - Radiculopathy, lumbar region (ICD-10) Compression fracture of lumbar vertebra ?S32.000A - Wedge compression fracture of unspecified lumbar vertebra, initial encounter for closed fracture (ICD-10) Surgical History History of repair of hiatal hernia ?Z98.890 - Other specified postprocedural states (ICD-10) ?Z87.19 - Personal history of other diseases of the digestive system (ICD-10) History of total right knee replacement (11/02/20) ?Z96.651 - Presence of right artificial knee joint (ICD-10) Family History Mother Breast cancer Lung cancer Social History Narrative: She lives near [place] with her . is healthcare power of relocation coordinator. Code status is DNR. She is a former cigarette smoker. Formally had a problem with alcohol abuse. She is unable to tell me today if she is still drinking and when she last had something to drink. She does not use recreational drugs. Highest level of school completed/degree received: high school graduate Smoking Status: Former smoker What tobacco products do you use: cigarettes Smoking quit date/years: <= 15 years ago Do you use any of these nicotine containing products: None Second hand tobacco smoke exposure: No How often do you have a drink containing alcohol: monthly or less Alcohol type: wine AUDIT-C Alcohol total score: 1 Non-prescribed substance use: denies use Caffeine: Yes service: No Exam Const: Vital Signs, click to edit/add: Vital Signs - 24 hr 04/27/25 13:28 Temperature 97.6 F Pulse Rate [Pulse Oximeter] 53 L Respiratory Rate 16 Blood Pressure [Ri ght Upper Arm] 151/99 H Pulse Oximetry 98 Oxygen Delivery Me thod Room Air This 80-year-old female is alert, interactive, no apparent distress, sitting in the wheelchair in exam room 5. She is breathing easy on room air, sclera clear, CV regular rate and rhythm, no murmur, lungs are clear. On inspection of her knees, right knee maybe looks a little thicker but note no erythema, there is no warmth, no significant effusion noted. She has a well-healed scar anteriorly over the front of the right knee. There is no popliteal fossa mass. She complains of pain when I attempt to do any flexion or extension of the knee. Thigh attempt to mobilize her hip, that causes significant pain in her knee and I cannot stabilize her knee enough to do a further hip evaluation. There is no pretibial edema below this. Neurovascular is intact in this extremity. On gentle palpation I really notes no pain over the patella or in the popliteal fossa or joint line, nothing over MCL or LCL on gentle palpation. Documenting provider has reviewed patient's vital signs: yes Course Course ED Course: Reviewed with this patient that I doubt this is infection, she is afebrile, patient's with joint infections are typically quite ill, can even be septic, have reviewed this with the patient. She really does not appear to have any type of joint effusion on my examination, certainly her joint is not erythematous red hot and swollen like I would anticipate with a septic joint. She did take the appropriate antibiotics which should diminish this concern of seeding a joint with dental procedures. We will look at x-rays. Will get a CBC, sed rate and C-reactive protein. Will talk to Orthopedics. Reevaluation(s) Time of Reevaluation #1: 15:28 Reevaluation #1: Reviewed the suprapatellar fluid on the imaging but no evidence of any concerns with the joint itself. Her white blood count and C-reactive protein are normal, presumably her sed rate is not going to show any significant change. Even if this does come back elevated, given that the patient has no complaints outside of pain of the knee, no fever, normal white blood count in normal C reactive protein, would not give her antibiotics just based on a sed rate. She will be following up with Orthopedics and will be rechecked. She understands he if there are symptoms of worsening of the knee that suggest infection, to return. She is due for a hydrocodone, will give her 5 of oxycodone here. Will give a short course of increased pain management with oxycodone and than Tylenol 1000 mg 3 times a day which she has at home. She will expect a phone call to get scheduled for followup with Orthopedics, she should anticipate to be called tomorrow. Dispense the smallest amount of oxycodone from [employer] which is 10 tablets. Consultations Consultation #1: Did speak with Zoe Ramsey from Orthopedics. She agrees that if I do not have concerns about a septic joint, give patient a short course of increased pain management and they will get her in to follow up with Orthopedics next week. Clinically, this patient certainly does not have a septic joint but will await her labs at this time. Her x-ray on my preliminary review is not showing any acute pathology. Time: 14:33 Vital Signs Vital signs: Initial Vital Signs Temperature 97.6 F 04/27/25 13:28 Temperature Source Temporal Artery Scan 04/27/25 13:28 Pulse Rate 53 L 04/27/25 13:28 Respiratory Rate 16 04/27/25 13:28 Blood Pressure 151/99 H 04/27/25 13:28 Blood Pressure Mean 116 H 04/27/25 13:28 Blood Pressure Position Sitting 04/27/25 13:28 Pulse Oximetry 98 04/27/25 13:28 Oxygen Delivery Method Room Air 04/27/25 13:28 Vital Signs Temperature 97.6 F 04/27/25 13:28 Pulse Rate 53 L 04/27/25 13:28 Respiratory Rate 16 04/27/25 13:28 Blood Pressure 151/99 H 04/27/25 13:28 Pulse Oximetry 98 04/27/25 13:28 Oxygen Delivery Method Room Air 04/27/25 13:28 Temperature 97.6 F 04/27/25 13:28 Pulse Rate 73 04/27/25 15:52 Respiratory Rate 16 04/27/25 13:28 Blood Pressure 157/84 H 04/27/25 15:52 Pulse Oximetry 98 04/27/25 13:28 Oxygen Delivery Method Room Air 04/27/25 13:28 Medications Administered Medications: Discontinued Medications Generic Name Dose Route Start Last Admin Trade Name Derek PRN Reason Stop Dose Admin Oxycodone HCl 5 mg 04/27/25 15:36 04/27/25 15:44 Oxycodone 5 Mg Tablet PO 04/27/25 15:37 5 mg ONCE ONE Administration MDM - Extremity Injury (Lower) Lab Data Attestation: I reviewed the patient's lab results. Labs: Lab Results 04/27/25 Range/Units 14:30 WBC 10.21 (4.50-11.00) K/uL RBC 3.22 L (4.00-5.20) m/uL Hgb 11.1 L (12.0-16.0) gm/dL Hct 33.9 (33.0-51.0) % MCV 105 H (80-100) fL MCH 35 H (26-34) pg MCHC 33 (32-36) gm/dL RDW Coeff of Norma 14.2 (11.5-15.5) % Plt Count 169 (140-440) K/uL Neut % (Auto) 64.3 (42.0-72.0) % Lymph % (Auto) 23.6 (20-44) % Luce % (Auto) 10.4 (0.0-11.0) % Eos % (Auto) 1.0 (0.0-7.0) % Baso % (Auto) 0.5 (0.0-3.0) % Neut # (Auto) 6.57 (1.7-7.0) K/uL Lymph # (Auto) 2.41 (0.90-2.90) K/uL Luce # (Auto) 1.10 H (0.00-0.90) K/UL Eos # (Auto) 0.10 (0.00-0.50) K/uL Baso # (Auto) 0.05 (0.00-0.30) K/uL Abs Immat Gran (auto) 0.02 (0.00-0.30) K/uL Imm/Tot Granulo (auto) 0.2 % ESR 25 H (2-20) mm/hr C-Reactive Protein 0.7 (0.5-1.0) mg/dL Imaging Data XR right knee: Attestation: I have reviewed the pertinent imaging results. My impression: I did visualize her knee x-rays, see no concerns with any hardware issue, wait radiology over read. Radiologist's impression: Patient: VANNESA TRAORE Facility:?[facility] Patient ID:?[id number] Site Patient ID:?[id number]. Site :?[id number] Study:?XRay-Knee Right 3 VIEW-04/27/2025 2:23:04 PM Ordering Physician:Lalitha Hill Final Report: Indication: pain, no trauma, total knee done in 2020 Technique: Three views of the right knee Comparison: Right knee radiograph on November 29, 2022 and priors Findings/Impression: No acute fracture or malalignment. Small to moderate suprapatellar knee joint effusion. Postsurgical changes of right total knee arthroplasty and patellar resurfacing without evidence of hardware related complication. No suspicious osseous lesions. Os fabella. Minimal vascular calcifications. Dictated by Cristobal Wellington MD @ 04/27/2025 2:43:00 PM (Electronic Signature) Discharge Plan Discharge Clinical Impression: Acute pain of right knee, History of arthroplasty of right knee Patient Disposition: Home, Self-Care Condition: Stable Instructions: Knee Pain (ED) Additional Instructions: Tylenol 1000 mg 3 times a day baseline for pain. Have given you oxycodone 5 mg, 1 every 6 hours as needed for pain. Put away the hydrocodone use the oxycodone instead at this time. If you do note fevers developed, the right knee is becoming more swollen, red, hot and painful, please seek re-evaluation. Otherwise, the orthopedic office should contact you tomorrow to get you scheduled for a follow-up. Activity Level: Activity as Tolerated Prescriptions: No Action amlodipine 5 mg tablet 5 mg PO DAILY Rx Instructions: to replace lisinopril/hctz blood pressure medication warfarin 5 mg tablet 5 - 7.5 mg PO DAILY Patient Comments: Take 7.5mg (5mg x 1.5) every Mon, Sat; 5mg (5mg x 1) all other days in the evening primidone 50 mg tablet 150 mg PO DAILY polyethylene glycol 3350 17 gram/dose powder 17 g PO DAILY PRN pantoprazole 40 mg tablet,delayed release (DR/EC) 40 mg PO DAILY cholecalciferol (vitamin D3) 125 mcg (5,000 unit) tablet 5,000 unit PO DAILY bupropion HCl 150 mg tablet extended release 24 hr 150 mg PO DAILY rosuvastatin 10 mg tablet 10 mg PO DAILY fluoxetine 20 mg capsule 20 mg PO DAILY ferrous sulfate 325 mg (65 mg iron) tablet 325 mg PO DAILY levothyroxine 100 mcg tablet 100 mcg PO DAILY cyanocobalamin (vitamin B-12) 1,000 mcg tablet 1,000 mcg PO DAILY alendronate 70 mg tablet 70 mg PO Q7D Patient Comments: TAKE 1 TAB BY MOUTH ONCE WEEKLY IN THE MORNING ON EMPTY STOMACH W/ 8 OZ WATER STAY UPRIGHT FOR 1 HR amiodarone 200 mg tablet 200 mg PO DAILY Patient Comments: TAKE 1 TABLET BY MOUTH EVERY DAY furosemide 40 mg tablet 40 mg PO DAILY PRN Patient Comments: TAKE 1 TABLET BY MOUTH IN THE MORNING NEEDED FOR SWELLING aspirin 81 mg tablet,chewable 81 mg PO DAILY magnesium oxide 400 mg magnesium capsule 400 mg PO DAILY metoprolol succinate 25 mg Tablet Extended Release 24 Hr 25 mg PO DAILY 30 Days Qty: 30 1RF gabapentin 300 mg capsule 300 mg PO TID Qty: 90 2RF calcitonin (salmon) 200 unit/actuation [place],Non-Aerosol 1 spray intranasal HS 30 Days Qty: 0 1RF magnesium oxide 400 mg (241.3 mg magnesium) Tablet 400 mg PO DAILY 30 Days Qty: 30 1RF lidocaine 5 % Adhesive Patch,Medicated 1 patch transdermal Q24H 30 Days Qty: 10 2RF fentanyl 25 mcg/hr Patch 72 Hour 1 patch transdermal Q72H 15 Days Qty: 5 0RF acetaminophen 325 mg capsule 650 mg PO QID Qty: 200 1RF hydroxyzine HCl 25 mg tablet 25 mg PO TID PRN (Reason: pain) Qty: 20 1RF hydrocodone-acetaminophen 5-325 mg tablet PO venlafaxine 150 mg capsule,extended release 24hr 150 mg PO DAILY warfarin 4 mg tablet 4 mg PO QPM levothyroxine 75 mcg tablet 75 mcg PO DAILY propranolol 40 mg tablet 40 mg PO BID amlodipine 10 mg tablet 10 mg PO DAILY Follow Up/Referrals: Luis Ryan MD [Primary Care Provider, Family Practice] Stand Alone Forms: [facility] Info Instructions
--- NOTE | 2025-04-27 14:00 | CRLHL7_ITS ---
For Patients: As a result of the Cures Act, medical imaging exams and procedure reports are released immediately into your electronic medical record. You may view this report before your referring provider. If you have questions, please contact your health care provider. Indication: pain, no trauma, total knee done in 2020 Technique: Three views of the right knee Comparison: Right knee radiograph on November 29, 2022 and priors Findings/Impression: No acute fracture or malalignment. Small to moderate suprapatellar knee joint effusion. Postsurgical changes of right total knee arthroplasty and patellar resurfacing without evidence of hardware related complication. No suspicious osseous lesions. Os fabella. Minimal vascular calcifications. Dictated by Cristobal Wellington MD @ 04/27/2025 2:43:00 PM (Electronically Signed)
[2025-04-27 14:41] LABS: Hematocrit* 33.9 % (33.0-51.0); Hemoglobin* 11.1 gm/dL (12.0-16.0); Immature Granulocytes Abs Auto 0.02 K/uL (0.00-0.30); Immature Granulocytes Pct Auto 0.2 %; Lymphocytes Absolute Auto 2.41 K/uL (0.90-2.90); Mean Corpuscular HGB Conc 33 gm/dL (32-36); Mean Corpuscular Hemoglobin 35 pg (26-34); Mean Corpuscular Volume 105 fL (80-100); RDW Coefficient of Variation % 14.2 % (11.5-15.5); Red Blood Count* 3.22 m/uL (4.00-5.20); White Blood Count* 10.21 K/uL (4.50-11.00)
[2025-04-27 14:49] LABS: Slide Review Reflex No
[2025-04-27 15:48] LABS: Erythrocyte SedimentationRate* 25 mm/hr (2-20)
[2025-04-27 15:52] VITALS: BP 157/84; PULSE 73
== END 2025-04-27 15:56 | disposition home or self-care (01) ==
PROVIDERS: Emergency Provider Family Medicine; PCP Family Medicine
DX: M25.561 Pain in right knee (principal); Z96.651 Presence of right artificial knee joint
CPT/HCPCS: 36415; 73562; 85025; 85651; 86140; 99284; A9270

== ENCOUNTER 2025-04-29 13:35 | Outpatient (CLI) | payer MEDICARE, SELFPAY ==
[2025-04-29 17:54] LABS: Mononuclear WBC Body Fluid* 37 %; Polynuclear WBC Body Fluid* 63 %; WBC, Body Fluid* 3656 Cells/uL
[2025-04-29 18:13] LABS: BF Clarity* Cloudy; BF Total Volume* 8
[2025-04-30 11:01] LABS: Lab Miscellaneous Test 3+
== END 2025-04-29 13:36 | disposition home or self-care (01) ==
LOC: LAB 13:38
PROVIDERS: PCP Family Medicine; Visit Provider Orthopaedic Surgery Sports Medicine
DX: M00.9 Pyogenic arthritis, unspecified (principal); Z96.651 Presence of right artificial knee joint
CPT/HCPCS: 36415; 84999; 87070; 87075; 87205; 89051; 89060

== ENCOUNTER 2025-04-29 14:01 | Outpatient (CLI) | payer MEDICARE, SELFPAY ==
[2025-04-29 14:53] LABS: Erythrocyte SedimentationRate* 34 mm/hr (2-20)
[2025-04-29 15:06] LABS: Procalcitonin* 0.14 ng/mL (<0.50)
[2025-04-30 11:15] LABS: Hematocrit* 36.1 % (33.0-51.0); Hemoglobin* 11.8 gm/dL (12.0-16.0); Immature Granulocytes Abs Auto 0.01 K/uL (0.00-0.30); Immature Granulocytes Pct Auto 0.1 %; Lymphocytes Absolute Auto 1.74 K/uL (0.90-2.90); Mean Corpuscular HGB Conc 33 gm/dL (32-36); Mean Corpuscular Hemoglobin 34 pg (26-34); Mean Corpuscular Volume 105 fL (80-100); RDW Coefficient of Variation % 13.8 % (11.5-15.5); Red Blood Count* 3.43 m/uL (4.00-5.20); White Blood Count* 7.66 K/uL (4.50-11.00)
[2025-04-30 11:16] LABS: Slide Review Reflex No
== END 2025-04-29 14:02 | disposition home or self-care (01) ==
PROVIDERS: PCP Family Medicine; Visit Provider Orthopaedic Surgery Sports Medicine
DX: M00.861 Arthritis due to other bacteria, right knee (principal); M25.561 Pain in right knee; Z96.651 Presence of right artificial knee joint
CPT/HCPCS: 36415; 84145; 85025; 85651; 86140; 87070; 87075; 87205; 89051

== ENCOUNTER 2025-06-20 21:37 | Emergency (ER) | payer MEDICARE, SELFPAY ==
--- OUTSIDE RECORDS SUMMARY | 2025-06-20 21:39 | XMS_ITS ---
Author Name Interface, [id number] lity Address [address] [place] [address] [facility] Address [address] [place] [address] Support Name Relationship Address Phone Lex Steel Spouse Unknown Unavailable Allergies and Adverse Reactions Medication/Group Name Reaction Severity Date Influenza Virus Vaccines Plan Date Type Value 06/10/2025 APPOINTMENT OV 20 MIN 06/10/2025 APPOINTMENT TREATMENT 1 HR Reason for Visit TREATMENT 1 HR Medications Date Name Route Dose Frequency Instructions Start Date End Date Status Fill Status Indication 05/26 Amlodip ine Oral QD active 05/26 Levothy roxine Oral QD active 05/26 Propran olol Oral BID active 05/26 Warfari n Oral oral 4.0 mg QD active 05/26 Venlafa xine Oral 24 hr Cap 225.0 mg QD active 06/05 Sodium Chlorid e IV 0.9 % intraven ously 250.0 mL once 2025 active Elevated ferritin 06/05 Sodium Chlorid e IV 0.9 % intraven ously 250.0 mL once 2025 active Hemochromato sis (disorder) 06/05 Sodium Chlorid e IV 0.9 % intraven ously 250.0 mL once 2025 active Hemochromato sis (disorder) 06/05 Sodium Chlorid e IV 0.9 % intraven ously 250.0 mL once 2025 active Elevated ferritin 06/05 Sodium Chlorid e IV 0.9 % intraven ously 250.0 mL once 2025 active Hemochromato sis (disorder) 06/05 Sodium Chlorid e IV 0.9 % intraven ously 250.0 mL once 2025 active Elevated ferritin 06/05 Sodium Chlorid e IV 0.9 % intraven ously 250.0 mL once 2025 active Hemochromato sis (disorder) 06/05 Sodium Chlorid e IV 0.9 % intraven ously 250.0 mL once 2025 active Elevated ferritin 06/05 Sodium Chlorid e IV 0.9 % intraven ously 250.0 mL once 2024 active Elevated ferritin 06/05 Sodium Chlorid e IV 0.9 % intraven ously 250.0 mL once 2024 active Hemochromato sis (disorder) Problems Diagnosis Status Date of Diagnosis Resolution Date Iron overload disease Active Hemochromatosis (disorder) Active Anemia Active Hypothyroidism, acquired Active Elevated ferritin Active Vitamin B12 deficiency anemia Active Vital Signs Date Type Value 06/10/2025 Body Temperature 97.60 06/10/2025 Heart Beat 60.00 06/10/2025 Respiratory Rate 16.00 06/10/2025 Oxygen Saturation 96.00 06/10/2025 BSA 1.68 06/10/2025 Pain Scale 2.00 06/10/2025 Weight 150.00 06/10/2025 Height 61.50 06/10/2025 BMI 27.88 06/10/2025 Intravascular Systolic 140 06/10/2025 Intravascular Diastolic 80
--- OUTSIDE RECORDS SUMMARY | 2025-06-20 21:39 | XMS_ITS | Clinical Summary ---
Author Organization [employer] Address [facility] [place] [address] Care Team Providers Care Canvass Manager Name Role Phone Luis Ryan MD [...] acetaminophen dose: 4000mg in 24 hrs. 0 04/13/20 22 Active amoxicillin 500 mg tabletIndicati ons:Dental anomaly 4 pills p.o. 1 hour before dentist 12 Tablet 1 04/24/20 24 Active amLODIPine 10 mg tabletIndicati ons:HTN (hypertension) Take 1 Tablet (10 mg) by mouth once daily. 90 Tablet 3 12/20/19 25 Active propranoloL 40 mg tabletIndicati ons:Tremor Take 1 Tablet (40 mg) by mouth two times daily. 180 Tablet 3 12/20/19 25 Active venlafaxine 150 mg Extended-Relea se capsuleIndicat ions:Anxiety and depression Take 1 Capsule (150 mg) by mouth once daily with evening meal. 90 Capsule 3 12/20/19 25 Active warfarin (COUMADIN) 4 mg tabletIndicati ons:Stable central retinal vein occlusion of right eye (HC),Anticoagu lation monitoring, INR range 2-3 Take by mouth 4 mg (4 mg x 1) every day in the evening OR as directed 02/26/20 25 Active levothyroxine (SYNTHROID) 75 mcg tabletIndicati ons:Hypothyroi dism (acquired) Take 1 Tablet (75 mcg) by mouth once daily. 90 Tablet 2 02/27/20 25 Active HYDROcodone-ac etaminophen (5-325 mg/tablet) Take by mouth. 04/27/20 25 Active venlafaxine (EFFEXOR XR) 75 mg cp24 Extended-Relea se capsuleIndicat ions:Anxiety and depression Take 1 Capsule (75 mg) by mouth once daily with a meal. 90 Capsule 3 05/14/20 25 Active amoxicillin 500 mg tabletIndicati ons:Dental anomaly 4 pills p.o. 1 hour before dentist 12 Tablet 06/17/20 25 Active amoxicillin 500 mg tabletIndicati ons:Dental anomaly 4 pills p.o. 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 [phone] Tolu Nichols MBBS 05/08/2025 Telephone [facility] [address] [address] A, [facility] Medicine Referral 05/06/[address] [address] Randall Choi PA Results 05/06/2025 Orders Only [address] [address] Randall Choi PA <No scans attached> 05/02/2025 Anticoagulation (warfarin) [address] [address] Nurse, Shilpag Anticoag Anticoagulation 05/01/2025 1:00 PM CDT Orders Only [address] [address] Lab 05/01/2025 Travel 04/29/[address] [address] Luis Ryan MD Refill Request (venlafaxine 150 mg Extended-Release capsule /) 04/27/2025 Orders Only [facility] Scanner 1 scan: (1-Ord) [facility], KNEE RT 3V, 04/27/2025 04/23/2025 12:30 PM CDT Office Visit [address] [address] Randall Choi PA Pre-Op Exam (04/25/25, oral surgery,Angi Alonzo Angie, DDS) 04/23/2025 11:30 AM CDT Orders Only [address] [address] Lab 04/23/2025 Anticoagulation (warfarin) [address] [address] Nurse, Yasmeen Anticoag Anticoagulation (OV - preop today) 04/23/2025 Travel 03/31/[address] [address] Randall Choi PA Results 03/31/2025 Orders Only [address] [address] Randall Choi PA <No scans attached> 03/28/2025 Anticoagulation (warfarin) [address] [address] Nurse, Yasmeen Anticoag Anticoagulation 03/27/2025 3:45 PM CDT Orders Only [address] [address] <No scans attached> 03/27/2025 Travel from Last 3 Months Immunizations Immunization [...] on file Legal Sex Female 7:52 AM FURNITURE SALES ASSOCIATE Gender Identity Not on file Sexual Orientation [...] 04/23/2025 12:44 PM CDT Plan of Treatment Health Maintenance Due Date [...] Procedure Name Priority Date/Time Associated Diagnosis Comments PERIPHERAL BLD MORPHOLOGY Routine 05/26/2025 11:58 AM FURNITURE SALES ASSOCIATE Abnormal findings of blood amino-acid level Anemia, unspecified Hypothyroidism, unspecified Hemochromatosis, unspecified Vitamin B12 deficiency anemia, unspecified FERRITIN Routine 05/01/2025 12:56 PM CDT Elevated ferritin PROTIME-INR Routine 05/01/2025 12:56 PM CDT Stable central retinal vein occlusion of right eye (HC) Anticoagulation monitoring, INR range 2-3 SCAN-RADIOLOGY REPORT 04/27/2025 12:00 AM CDT PROTIME-INR Routine 04/23/2025 11:39 AM CDT Stable [...] Routine 03/27/2025 3:41 PM CDT Hypothyroidism (acquired) XR DXA BONE DENSITY 2 SITES AXIAL Routine 01/02/2024 1:28 PM CDT Osteoporosis without current pathological fracture CT CHEST PE STUDY STAT 01/16/2021 3:5 4 PM CDT from Last 3 Months or Most Recently Relevant to Health Maintenance Results * PERIPHERAL BLD MORPHOLOGY (05/26/2025 11:58 AM FURNITURE SALES ASSOCIATE) Case Report Special Hematology Report Case: [id number] Authorizing Provider: Tolu Nichols MBBS Collected: 05/26/2025 1158 Ordering Location: [facility] Received: 05/26/2025 2143 Pathologist: Bubba Marquez MD Specimen: Blood 05/27/2025 2:52 PM FURNITURE SALES ASSOCIATE [facility] Final Diagnosis PERIPHERAL BLOOD: 1. Normal hemoglobin with elevated MCV 2. Leukocytosis reflecting absolute neutrophilia, favor reactive 3. See comment 05/27/2025 2:52 PM FURNITURE SALES ASSOCIATE [facility] at 1452 FURNITURE SALES ASSOCIATE Comment The differential diagnosis of macrocytosis without anemia is similar to that of macrocytic anemia, and includes Vitamin B12/folate deficiency, liver disease, hypothyroidism, alcohol use, sideroblastic anemia and certain medications. Of these, alcohol use and medication effect are the most common. Also, patients with chronic obstructive pulmonary disease may develop a mild macrocytosis, and monoclonal proteins may be associated with an artifactual increase in MCV. Correlation with clinical history and findings is suggested. Of note, the ferritin is an acute phase reactant and may be elevated during an acute inflammatory process. As of 04/12/2025, the ferritin level was elevated at 787 ng/mL. Clinical correlation is recommended. There are no morphologic features to suggest the etiology of the neutrophilia. Neutrophilia may be associated with infectious diseases, steroids, and acute inflammation. Clinical correlation is recommended. This case was also reviewed by Olesya Choudhary [place], MS (ASCP). 05/27/2025 2:52 PM FURNITURE SALES ASSOCIATE [facility] Clinical Information Pertinent clinical information: Elevated ferritin * (R79.83); Anemia (D64.9); Hypothyroidism, acquired (E03.9); Iron overload disease (E83.119); Vitamin B12 deficiency anemia (D51.9). Per EPIC: Additional history includes hypertension, paroxysmal A-fib, hypothyroidism, vitamin B12 deficiency, alcoholic, COPD, and CKD. As of 05/01/25 12:56 FERRITIN: 787 (H) 05/27/2025 2:52 PM FURNITURE SALES ASSOCIATE [facility] CBC and Differential HEMATOLOGY PARAMETERS Tested at: [facility] [place] RESULTS EXPECTED VALUES WBC: 11.6 4.5-22l6838/cum m ELEVATED RBC: 3.54 4.00-5.20 mil/cumm DECREASED HGB: 12.3 12-16 gm/dl HCT: 37.9 33-51% MCV: 107.1 80-100 fl MACROCYTIC MCH: 34.7 26-34 pg ELEVATED MCHC: 32.5 32-36 gm/dl NORMOCHROMIC RDW: 14.8 11.5-15.5% PLT: 223 140-183l0323/uL MPV: 10.9 6.5-11 fl Retic: 2.26 0.5-1.5% ELEVATED Differential Absolute (%) Expected (%) (x10*9/L) (x10*9/L) Neutrophils: 8.71 (75.3) 1.7-7.0 (42-72%) ELEVATED Lymphocytes: 1.9 (16.4) 0.9-2.9 (20-44%) Monocytes: 0.83 (7.2) <0.9 (0-11%) Eosinophils: 0.05 (.4) <0.5 (0-2%) Basophils: 0.03 (.3) <0.3 (<3.0%) Imm Grans: 0.05 (.4) <0.3 (0-3%) (Metas, Myelos,Pros) 05/27/2025 2:52 PM FURNITURE SALES ASSOCIATE [facility] Microscopic Description The final diagnosis is based on microscopic examination of an appropriately stained blood smear. 05/27/2025 2:52 PM FURNITURE SALES ASSOCIATE [facility] Additional Information Interpreted at [facility] - [address], [place] [address] 05/27/2025 2:52 PM FURNITURE SALES ASSOCIATE [facility] Blood BLOOD SPECIMEN / Unknown 05/26/2025 11:58 AM FURNITURE SALES ASSOCIATE 05/26/2025 9:45 PM FURNITURE SALES ASSOCIATE Tolu HERNÁNDEZ HEMATOLOGY Final Result [facility] [address] [place] [address], * (ABNORMAL) PROTIME-INR [55258.0] - Standing Order (05/01/2025 12:56 PM CDT) Only the most recent of3 resultswithin the time period is included. INR 1.4(H) <1.3 05/01/2025 10:22 PM CDT [facility] PROTIME 16.6(H) 10.6 - 12.4 sec 05/01/2025 10:22 PM CDT [facility] Blood BLOOD SPECIMEN / Unknown [facility] / Unknown 05/01/2025 12:56 PM CDT 05/01/2025 12:56 PM CDT Narrative [facility] - 05/01/2025 10:22 PM CDT Therapeutic Range 2.0-3.0 for most [...] UFH. Luis Ryan MD HEMATOLOGY Final Result [facility] [address] [place] [address], * (ABNORMAL) FERRITIN (05/01/2025 12:56 PM CDT) Only the most recent of2 resultswithin the time period is included. FERRITIN 787(H) 16 - 288 ng/mL 05/02/2025 4:14 AM CDT [facility] Blood BLOOD SPECIMEN / Unknown [facility] / Unknown 05/01/2025 12:56 PM CDT 05/01/2025 12:56 PM CDT Randall BUNCH CHEMISTRY Final Resul t Performing Organization Address [facility] Co de Phone Number [facility] [address] [address], * SCAN-RADIOLOGY REPORT (04/27/2025 12:00 AM CDT) Anatomical Region Laterality Modality Other us Scanner OTHER Final Result * (ABNORMAL) TSH WITH REFLEX (03/27/2025 3:41 PM CDT) TSH W/REFLEX TO FT4 0.18(L) 0.40 - 4.50 mIU/L 03/28/2025 9:23 AM CDT [facility] Blood BLOOD SPECIMEN / Unknown [facility] / Unknown 03/27/2025 3:41 PM CDT 03/27/2025 3:41 PM CDT Randall BUNCH CHEMISTRY Final Resul t Performing Organization Address [facility] Co de Phone Number [facility] [address] [place] [address], * T4,FREE (03/27/2025 3:41 PM CDT) T4, FREE 1.8 0.8 - 1.8 ng/dL 03/28/2025 9:23 AM CDT [facility] Blood BLOOD SPECIMEN / Unknown [facility] / Unknown 03/27/2025 3:41 PM CDT 03/27/2025 3:41 PM CDT Randall BUNCH CHEMISTRY Final Resul t Performing Organization Address [facility] Co de Phone Number [facility] [address] [place] [address], * XR DXA BONE DENSITY 2 SITES [...] 3:49 PM CDT EXAM: BONE DENSITY LOCATION: [facility] [place] DATE: 01/02/2024 INDICATION: BMD screening, follow-up. DEMOGRAPHICS: [...] PA - 01/03/2024 EXAM: BONE DENSITY LOCATION: [facility] [place] DATE: 01/02/2024 INDICATION: BMD screening, follow-up. DEMOGRAPHICS: [...] For Patients: As a result of the 21st Century Cures Act, medical imaging exams and procedure [...] For Patients: As a result of the Century Cures Act, medical imagingexams and procedure reports [...] Maintenance Insurance MEDICARE PART A HB ONLY [facility] PPS Advance Directives Documents on File Type Date Recorded Patient Local Bulk Driver Expl anation POLST 03/03/2022 * Full Code [...] Comments Code Status Discussion: Discussed Care Teams Canvass Manager Relationship Specialty [place] [address] [place] [address] PCP - General 11/03/09
--- OUTSIDE RECORDS SUMMARY | 2025-06-20 21:39 | XMS_ITS ---
Author Name Interface, [id number] lity Address [address] [facility] [address] [place] [address] [facility] On[facility] Address [address] [facility] [address] [facility] [address] [place] [address] Support Name Relationship Address Phone Lex Traore Spouse Unknown Unavailable Allergies and Adverse Reactions Medication/Group Name Reaction Severity Date Influenza Virus Vaccines Plan Date Type Value 06/10/2025 APPOINTMENT OV 20 MIN 06/10/2025 APPOINTMENT TREATMENT 1 HR Reason for Visit TREATMENT 1 HR Encounters Date Name 06/10/2025 Anemia 06/10/2025 Elevated ferritin 06/10/2025 Hemochromatosis (dis order) 06/10/2025 Hypothyroidism, acqu ired 06/10/2025 Iron overload diseas e 06/10/2025 Vitamin B12 deficien cy anemia Medications Date Name Route Dose Frequency Instructions [...] ferritin Active Vitamin B12 deficiency anemia Active Notes Section * Med Onc Follow-up Note Patient Name: VANNESA TRAORE Date Of : 1945 Today's Provider:?Tolu HERNÁNDEZ Date of Service:?06/10/2025 Attending Physician:?Tolu Nichols (Medical Oncology) Referring Provider: Randall Choi PA-C HEMATOLOGY/ MEDICAL ONCOLOGY FOLLOW UP VISIT Reason for Visit * Hereditary hemochromatosis * Elevated ferritin Assessment * Hemochromatosis * Patient is a pleasant 80-year-old lady referred by Ms. Randall Choi.?? * Recently on lab test done on 05/01/2025 she was found to have elevated ferritin of 787.?? * Patient's past medical history significant for hypertension hypothyroidism depression anemia osteoporosis arthritis vitamin B12 deficiency effusive constrictive pericarditis paroxysmal atrial fibrillation chronic kidney disease COPD. * Patient is on long-term anticoagulation with warfarin due to atrial fibrillation. * 05/26/2025 patient had medical oncology consult Review of patient's recent labs show elevated ferritin of 787 1 month ago patient's ferritin was 529.?? Other labs show in February her hemoglobin was 11.4 MCV was 95,??Her iron saturation was 86% * 06/05/2025 lab test show patient had 2 copies of C282Y gene confirming diagnosis of hereditary hemochromatosis.??I called patient and initiated plan for phlebotomy. * Patient is here now for a follow-up she continues to have some fatigue she also shared that she is planning to travel to [place] for the winter.?? Plan * I reviewed patient's additional labs since I last saw her I explained that she has 2 copies of C282Y gene confirming diagnosis of hereditary hemochromatosis in the setting of iron overload. * Pathophysiology of hemochromatosis was discussed I recommended treatment with phlebotomy to get ferritin in the goal range of around 50. * Will initiate phlebotomy today patient will continue phlebotomy monthly while she is in [place] we will plan to see her back when she comes back in summer.?? * Patient has previous history of smoking but quit in 2019 * 05/26/2025 patient had medical oncology consult Review of patient's recent labs show elevated ferritin of 787 1 month ago patient's ferritin was 529.?? Other labs show in February her hemoglobin was 11.4 MCV was 95,??Her iron saturation was 86% * 06/05/2025 lab test show patient had 2 copies of C282Y gene confirming diagnosis of hereditary hemochromatosis.??I called patient and initiated plan for phlebotomy. * ?? Advanced Care Planning Not discussed at this visit. Pain Scale on Today's Visit Not recorded on today's visit Pain Plan on Today's Visit No pain plan indicated for today's visit Smoking Status Smoking Tobacco : Former smoker; Smokeless Tobacco : Never used smokeless tobacco; Vaping : Never vaped Depression Screening Tool Status Was screened; Outcome positive: Yes; Screening Date: 06/10/2025; Screening Tool: Patient Health Questionnaire (PHQ9); Total depression score: 16 History of Present Illness * Recently on lab test done on 05/01/2025 she was found to have elevated ferritin of 787.?? * Patient's past medical history significant for hypertension hypothyroidism depression anemia osteoporosis arthritis vitamin B12 deficiency effusive constrictive pericarditis paroxysmal atrial fibrillation chronic kidney disease COPD. * Patient is on long-term anticoagulation with warfarin due to atrial fibrillation. * She denies any pain or discomfort today * 05/26/2025 patient had medical oncology consult Review of patient's recent labs show elevated ferritin of 787 1 month ago patient's ferritin was 529.?? Other labs show in February her hemoglobin was 11.4 MCV was 95,??Her iron saturation was 86% * 06/05/2025 lab test show patient had 2 copies of C282Y gene confirming diagnosis of hereditary hemochromatosis.??I called patient and initiated plan for phlebotomy. * 06/10/2025 patient started on phlebotomyGoal ferritin 50 Interval History { } Review of Systems Remaining 14 point comprehensive review of systems within normal limits. NCCN Distress Thermometer and Problem List were collected and documented in the patient chart.?? Remarkable symptoms and concerns were discussed with the patient.?? Any additional follow-up is indicated in the plan. Past Medical and Surgical History * Patient's past medical history significant for hypertension hypothyroidism depression anemia osteoporosis arthritis vitamin B12 deficiency effusive constrictive pericarditis paroxysmal atrial fibrillation chronic kidney disease COPD. * Patient is on long-term anticoagulation with warfarin due to atrial fibrillation. Current Medications Medication List Name Date Warfarin Oral 05/26/2025 Venlafaxine Oral 24 hr Cap 05/26/2025 Levothyroxine Oral 05/26/2025 Propranolol Oral 05/26/2025 Amlodipine Oral 05/26/2025 Allergies Influenza Virus Vaccines Family History Social History 1 pack a day for 55??Years quit in 2019 Vital Signs Blood pressure: Not recorded on visit, Pulse: Not recorded on visit, Temperature: Not recorded on visit, Respirations: Not recorded on visit, O2 sat: Not recorded on visit, Pain Scale: Not recorded on visit, Height: Not recorded on visit, Weight: Not recorded on visit, BSA: Not recorded on visit, BMI: Not recorded on visit Covid-19 vaccine (Moderna) (05/26/2025), Patient declined/rejected; Flu vaccine - Adult (05/26/2025), Patient declined/rejected Performance Status ECOG or Karnofsky ECOG: Not recorded Karnofsky: Not recorded Physical Exam Pleasant 80-year-old lady appears comfortable no acute distress ECOG performance score 1 Genetics/Molecular/Biomarkers * Elevated ferritin * Hemochromatosis (disorder) Lab Results CBC Lab Results 05/26/2025 05/01/2025 03/27/2025 02/24/2025 CBC WBC x 10^3/uL 11.6 (H) RBC x 10^6/uL 3.54 (L) NRBC % /100 wbc 0.0 HGB g/dL 12.3 HCT % 37.9 MCV fL 107.1 (H) MCH pg 34.7 MCHC g/dL 32.5 RDW % 14.80 PLT x 10^3/uL 223 MPV fL 10.9 Javier % 75.3 (H) LY % 16.4 MO % 7.2 EO % 0.4 IG % 0.4 Javier # (ANC) x 10^3/uL 8.7 (H) BA % 0.3 MO # x 10^3/uL 0.8 EO # x 10^3/uL 0.1 BA # x 10^3/uL 0.0 IG # x 10^3/uL 0.05 (H) LY # x 10^3/uL 1.9 Chemistries Lab Results 05/26/2025 05/01/2025 03/27/2025 02/24/2025 Chemistries Glucose mg/dL 80 BUN mg/dL 29.0 (H) Creatinine mg/dL 1.60 (H) Sodium mmol/L 136 (L) Potassium mmol/L 3.9 Chloride mmol/L 102 CO2 mmol/L 29 Calcium mg/dL 9.1 Albumin g/dL 4.0 Total protein g/dL 7.0 Bilirubin, total mg/dL 0.7 Alkaline phosphatase U/L 131 (H) AST/SGOT U/L 26 ALT/SGPT U/L 15 GFR estimate mL/min/1.73m2 32.8 (L) ? Lab Results 05/26/2025 05/01/2025 03/27/2025 02/24/2025 Anemia Labs Iron ug/dL 165 TIBC ug/dL 203 (L) Ferritin ng/mL 576.00 (H) Unbound iron capacity ug/dL <55.00 (L) Iron, % saturation % 81 (H) Vitamin B12 pg/mL 247 Folate, serum ng/mL 3.2 Reticulocyte count % 2.26 (H) Reticulocyte, absolute x 10^6/mL 0.08 Immature reticulocyte fraction, % 9.60 Reticulocyte cellular hemoglobin pg 39.2 (H) Surveys/Consents/Other Discussions EDGAR Mosqueda CC: Electronically signed by Tolu HERNÁNDEZ 06/16/2025 20:29 HOSPITALITY HOUSEKEEPER
--- OUTSIDE RECORDS SUMMARY | 2025-06-20 21:39 | XMS_ITS ---
Author Name Interface, [id number] lity Address [address] [place] [address] [address] [place] [address] Organization [facility] Address [address] [facility] [address] [place] [address] Support Name Relationship Address Phone Lex Traore Spouse Unknown Unavailable Allergies and Adverse Reactions Medication/Group Name Reaction Severity Date Influenza Virus Vaccines Plan Date Type Value 05/26/2025 APPOINTMENT LAB 10 MIN 05/26/2025 APPOINTMENT NEW PT CONSULT 6 0 MIN 05/26/2025 LAB_ORDER Immunofixation, serum w/ quant IgG/A/M panel 05/26/2025 LAB_ORDER Vitamin B12 pane l 05/26/2025 LAB_ORDER Path peripheral blood slide review panel 05/26/2025 LAB_ORDER CBC, Diff and Re tic 05/26/2025 LAB_ORDER Folate panel 05/26/2025 LAB_ORDER TSH w/ reflex to free T4 05/26/2025 LAB_ORDER Hereditary hemoc hromatosis DNA mutation analysis 05/26/2025 LAB_ORDER CMP 05/26/2025 LAB_ORDER Ferritin panel 05/26/2025 LAB_ORDER Iron profile Reason for Visit TREATMENT 1 HR Encounters Date Name 05/26/2025 Anemia 05/26/2025 Elevated ferritin 05/26/2025 Hypothyroidism, acqu ired 05/26/2025 Iron overload diseas e 05/26/2025 Vitamin B12 deficien cy anemia Immunizations Date Name Route Dose Instructions Refusal Reason Stat us Covid-19 vaccine (Moderna) Patient declined/rejected Not Administered Flu vaccine - Adult Patient declined/rejected Not Administered Diagnostic Results Date Type Test Units Lower Limit Upper Limit Result Flag Comments Status Ordered By Specimen Source Lab Address 05/26 Immun ofixa tion, serum w/ quant IgG/A /M panel Immun ofixa tion, serum , inter preta tion No monoclo nal peaks detecte d. Interpr eted and signed by Cely barriga MD on 025 FINAL Tolu Nichols * [facility] , [facility] [address] [id number] 0 05/26 CMP Album in g/dL 3.5 5.0 4.0 FINAL Tolu Nichols * [facility] , [facility] [address] [id number] 0 05/26 CMP Alkal ine phosp hatas e U/L 36.0 125.0 131 High FINAL Tolu Nichols * [facility] , [facility] [address] [id number] 0 05/26 CMP ALT/S GPT U/L 0.0 34.0 15 FINAL Tolu Nichols * [facility] , [address] [facility] [address] [id number] 0 05/26 CMP AST/S GOT U/L 14.0 36.0 26 FINAL Tolu Nichols * [facility] , [facility] [address] [id number] 0 05/26 CMP BUN mg/dL 7.0 17.0 29.0 High FINAL Tolu Nichols * [facility] , [address] [facility] [address] [id number] 0 05/26 CMP Calci um mg/dL 8.4 10.2 9.1 FINAL Tolu Nichols * [facility] , [facility] [address] [id number] 0 05/26 CMP Chlor gris mmol/L 96.0 107.0 102 FINAL Tolu Nichols * [facility] , [facility] [facility] [id number] 0 05/26 CMP CO2 mmol/L 22.0 30.0 29 The expected total allowable error for CO2 is 5.6%. We have seen up to 10% differenc e in values if reported at the end of the 96 hour stability window. Please consider the clinical significa nce of a 2.0-2.5 mmol/L lower reported CO2 value if reported at the end of the 96 hour stability window. FINAL Tolu Nichols * [facility] , [address] [facility] [address] [facility] [id number] 0 05/26 CMP Creat inine mg/dL 0.66 1.25 1.60 High FINAL Tolu Nichols * [facility] , [address] [facility] [address] [id number] 05/26 CMP GFR estim ate ml/min /1.73m ^2 32.8 Low GFR is calculate d using the CKD-EPI equation. FINAL Tolu Nichols * [facility] , [address] [facility] [address] [id number] 0 05/26 CMP Gluco se mg/dL 74.0 100.0 80 FINAL Tolu Nichols * [facility] , [address] [facility] [address] [facility] [id number] 0 05/26 CMP Potas sium mmol/L 3.5 5.1 3.9 FINAL Tolu Nichols * [facility] , [address] [facility] [address] [id number] 0 05/26 CMP Sodiu m mmol/L 137.0 145.0 136 Low FINAL Tolu Nichols * [facility] , [address] [facility] [address] [id number] 0 05/26 CMP Bilir ubin, total mg/dL 0.2 1.3 0.7 FINAL Tolu Nichols * [facility] , [address] [facility] [id number] 0 05/26 CMP Total prote in g/dL 6.3 8.2 7.0 FINAL Tolu Nichols * [facility] , [address] [facility] [id number] 0 05/26 Jennifer tin panel Jennifer tin ng/mL 6.24 264.0 576.00 High FINAL Tolu Nichols * [facility] , [address] [facility] [id number] 0 05/26 Vitam in B12 panel Vitam in B12 pg/mL 239.0 931.0 247 Test performed at [facility]. [address], [place] [address] FINAL Tolu Nichols * [facility] , [address] [facility] [id number] 0 05/26 Folat e panel Folat e, serum ng/mL 2.8 20.0 3.2 FINAL Tolu Nichols * [facility] , [address] [facility] [id number] 0 05/26 TSH w/ refle x to free T4 TSH uIU/mL 0.47 4.68 1.78 FINAL Tolu Nichols * [facility] , [address] [facility] [id number] 0 05/26 MO % % 6.0 15.0 7.2 FINAL Tolu Nichols [place] [facility] , [address] [facility] [id number] 0 05/26 EO % % 0.0 7.0 0.4 FINAL Tolu Nichols [place] [facility] [place] [facility] , [address] [place] [id number] 0 05/26 BA % % 0.0 2.0 0.3 FINAL Tolu Nichols [place] [facility] [place] [facility] , [address] [place] [id number] 0 05/26 LY # K/uL 0.4 3.6 1.9 FINAL Tolu Nichols [place] [facility] [place] [facility] , [address] [place] [id number] 0 05/26 MO # K/uL 0.2 1.3 0.8 FINAL Tolu Nichols [place] [facility] [place] [facility] , [address] [place] [id number] 0 05/26 EO # K/uL 0.0 0.6 0.1 FINAL Tolu Nichols [place] [facility] [place] [facility] , [address] [place] [id number] 0 05/26 BA # K/uL 0.0 0.2 0.0 FINAL Tolu Nichols [place] [facility] [place] [facility] , [address] [place] [id number] 0 05/26 NRBC % #/100W BC 0.0 0.2 0.0 FINAL Tolu Nichols [place] [facility] [place] [facility] , [address] [place] [id number] 0 05/26 RBC M/uL 3.9 5.1 3.54 Low FINAL Tolu Nichols [place] [facility] [place] [facility] , [address] [place] [id number] 0 05/26 HCT % 35.0 48.0 37.9 FINAL Tolu Nichols [place] [facility] [place] [facility] , [address] [place] [id number] 0 05/26 MCV fL 80.0 104.0 107.1 High FINAL Tolu Nichols [place] [facility] [place] [facility] , [address] [place] [id number] 0 05/26 MCH pg 26.0 35.0 34.7 FINAL Tolu Nichols [place] [facility] [place] [facility] , [address] [place] [id number] 0 05/26 MCHC g/dL 30.0 35.0 32.5 FINAL Tolu Nichols [place] [facility] [place] [facility] , [address] [place] [id number] 0 05/26 MPV fL 9.5 13.4 10.9 FINAL Tolu Nichols [place] [facility] [place] [facility] , [address] [place] [id number] 0 05/26 RDW % 11.4 16.1 14.80 FINAL Tolu Nichols [place] [facility] [place] [facility] , [address] [place] [id number] 0 05/26 Retic ulocy te, absol [place] M/uL 0.02 0.08 0.08 FINAL Tolu Nichols [place] [facility] [place] [facility] , [address] [place] [id number] 0 05/26 Retic ulocy te count % 0.4 1.6 2.26 High FINAL Tolu Nichols [place] [facility] [place] [facility] , [address] [place] [id number] 0 05/26 Immat ure retic ulocy te fract ion, % % 0.0 16.5 9.60 FINAL Tolu Nichols [place] [facility] [place] [facility] , [address] [place] [id number] 0 05/26 Retic ulocy te cellu lar hemog lobin pg 28.0 37.0 39.2 High FINAL Tolu Nichols [place] [facility] [place] [facility] , [address] [place] [id number] 0 05/26 WBC K/uL 3.0 8.9 11.6 High FINAL Tolu Nichols [place] [facility] [place] [facility] , [address] [place] [id number] 0 05/26 HGB g/dL 11.3 15.2 12.3 FINAL Tolu Nichols [place] [facility] [place] [facility] , [address] [place] [id number] 0 05/26 PLT K/uL 113.0 364.0 223 FINAL Tolu Nichols [place] [facility] [place] [facility] , [address] [place] [id number] 0 05/26 Javier % % 43.0 74.0 75.3 High FINAL Tolu Nichols [place] [facility] [place] [facility] , [address] [place] [id number] 0 05/26 Javier # (ANC) K/uL 1.6 6.6 8.7 High FINAL Tolu Nichols [place] [facility] [place] [facility] , [address] [place] [id number] 0 05/26 IG % % 0.0 0.5 0.4 FINAL Tolu Simone [facility] , [address] [address] [place] [facility] [id number] 0 05/26 IG # K/uL 0.0 0.03 0.05 High FINAL Tolu Simone [facility] , [address] [address] [place] [facility] [id number] 0 05/26 LY % % 14.0 41.0 16.4 FINAL Tolu Simone [facility] , [address] [facility] [id number] 0 05/26 Iron profi le TIBC ug/dL 265.0 497.0 203 Low FINAL Tolu Nichols * [facility] , [address] [facility] [id number] 0 05/26 Iron profi le Iron ug/dL 37.0 170.0 165 FINAL Tolu Nichols * [facility] , [address] [facility] [id number] 0 05/26 Iron profi le Unbou nd iron capac ity ug/dL <55.00 Low FINAL Tolu Nichols * [facility] , [address] [facility] [id number] 0 05/26 Iron profi le Iron, % satur ation % 20.0 55.0 81 High FINAL Tolu Nichols * [facility] , [address] [facility] [id number] 0 05/26 Immun oglob ulin measu remen t IgG, quant mg/dL 610.0 1616.0 811.18 Test performed at [facility] on a Binding Site Optilite Analyzer that uses a turbidime tric method for analysis. Patient testing should not be performed using multiple methodolo gies due to analytica l variation seen between test methodolo gies. FINAL Tolu Jain * [facility] , [address] [facility] [address] [facility] [id number] 0 05/26 Immun oglob ulin measu remen t IgA, quant mg/dL 61.0 348.0 155.46 Test performed at [facility] on a Binding Site Optilite Analyzer that uses a turbidime tric method for analysis. Patient testing should not be performed using multiple methodolo gies due to analytica l variation seen between test methodolo gies. FINAL Tolu Simone * [facility] , [address] [facility] [address] [facility] [id number] 0 05/26 Immun oglob ulin measu remen t IgM, quant mg/dL 35.0 242.0 32.37 Low Test performed at [facility] on a Binding Site Optilite Analyzer that uses a turbidime tric method for analysis. Patient testing should not be performed using multiple methodolo gies due to analytica l variation seen between test methodolo gies. 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 This patient is negative forthe H63D pathogeni c variant. Approxima tely 60% to 90% ofindivid uals with a biochemic al diagnosis of hereditar yhemochro matosis (HH) have this genotype. Therefore , thisresul t is consisten t with a diagnosis of HH in an individua lwith clinical evidence of HH. However, this genotype doesnot predict a diagnosis of HH in an asymptoma tic individua l,as not all individua ls with this genotype will developsy mptoms or clinical evidence of this disorder. Diseasedi agnosis can only be made by demonstra tion of elevated ironstore s. Consider genetic counselin g and DNA testing forat-ris k family members.L aboratory testing supervise d and results monitored byKarolina Fitzgerald, Ph.D., FACMG, HCLD, CGMB.DETA ILED ASSAY INFORMATI ON: Hereditar y hemochrom atosis (HH)is an autosomal recessive disorder of iron metabolis m thatcan result in iron overload and potential organ failure. Itis one of the most common genetic disorders in individua lsof - ancestry, with an estimated carrierfr equency of 10%. HH is caused by pathogeni c variants in theHFE gene. Most individua ls with HH (60-90%) are homozygou sfor the C282Y pathogeni c variant. A smaller percentag e ofaffecte d individua ls are either compound heterozyg ous forthe C282Y and H63D pathogeni c variants (3%-8%), orhomozyg ous for the H63D pathogeni c variant (approxim ately1%). METHODOLO GY: This assay detects two pathogeni c variants inthe HFE gene, C282Y (NM 457057.2: c.845G>A, p.Tjr911E yr) vnwR84T (NM 619373.2: c.187C>G, p.Mkn54Aa p), that are commonlya ssociated with HH. These variants are detected bymultipl ex-polyme rase chain reaction (PCR) amplifica tion,foll owed by chel on enzyme digestion and capillary electroph oresisLA MITATIONS : This assay does not detect other pathogeni cvariants in the HFE gene that may be associate d with HH.Althou gh rare, false positive or false negative results mayoccur. All results should be interpret ed in the context ofclinica l findings, relevant history, and other laborator ydata.[facility]a [facility] care providers , please contact your local Yub' genetic counselor or call [phone] [facility]([phone]) for assistanc e with the interpret ation ofthese results.T his test was developed and its analytica l performan cecharact eristics have been determine d by [facility] . It has not beenclear ed or approved by FDA. This assay has been validated pursuant to the CLIA regulatio ns and is used for clinicalp urposes.F or more informati on, please refer tohttp:// education .Yebhi/faq/h emotabatha winn.(Th is link is being provided for informati onal/educ atformerly [facility] hospital southu rposes only.)A portion of the testing was [place] [facility]Rev iewed and signed by Laborator y testing supervise jad jeffrey monitored by Stvee Fitzgerald, Ph.D., FACMG, HCLD,CGMB , Signed on 5 at 16:56 FINAL Karen [facility] [address] [facility] [id number] 4 05/26 Path perip heral blood slide revie w panel Patho logy/ Cytol ogy Morph ology SEE RESULTS BELOW CASE REPORTSpe cial Hematolog y Report Case: [id number] 0Authoriz ing Provider: Tolu Nichols MBBS Collected :05/26/20 25 1158Order ing Location: [facility] Received: 5 2145Patho logist: Bubba Marquez MDSpecbello n: BloodFINA L DIAGNOSIS PERIPHERA L BLOOD:1. Normal hemoglobi n with elevated MCV2. Leukocyto sis reflectin g absolute neutrophi kyle, favor reactive3 . See commentEl ectronica lly signed by Bubba Marquez MD on 05/27/2025 at 1452 CSTCOMMEN TThe different ial diagnosis of macrocyto sis without anemia is similar to that ofmacrocy tic anemia, and includes Vitamin B12/folat e deficienc y, liver disease,h ypothyroi dism, alcohol use, siderobla stic anemia and certain medicatio ns. Ofthese, alcohol use and medicatio n effect are the most common. Also, patientsw ith chronic obstructi ve pulmonary disease may develop a mild macrocyto sis, andmonocl onal proteins may be associate d with an artifactu al increase in MCV.Corre lation with clinical history and findings is suggested .Of note, the ferritin is an acute phase reactant and may be elevated during anacute inflammat ory process. As of 04/12/2025 , the ferritin level was elevated at787 ng/mL. Clinical correlati on is recommend ed.There are no morpholog ic features to suggest the etiology of the neutrophi kyle.Neutr ophilia may be associate d with infectiou s diseases, steroids, and acuteinfl ammation. Clinical correlati on is recommend ed.This case was also reviewed by Olesya solorio MT, MS (ASC).CL INICAL INFORMATI ONPertine nt clinical informati on: Elevated ferritin * (R79.83); Anemia (D64.9);H ypothyroi dism, acquired (E03.9); Iron overload disease (E83.119) ; Vitamin X37yessfm ency anemia (D51.9).P er EPIC: Additiona l history includes hypertens ion, paroxysma l A-fib,hyp othyroidi sm, vitamin B12 deficienc y, alcoholic , COPD, and CKD.As of 05/01/25 12:56FERR ITIN: 787 (H)CBC AND DIFFERENT IALHEMATO LOGY PARAMETER STested at: [facility] [place] eRESULTS EXPECTED VALUESWBC : 11.6 4.5-11x10 00/cumm ELEVATEDR BC: 3.54 4.00-5.20 mil/cumm DECREASED HGB: 12.3 12-16 gm/dlHCT: 37.9 33-51%MCV : 107.1 80-100 fl MACROCYTI CMCH: 34.7 26-34 pg ELEVATEDM CHC: 32.5 32-36 gm/dl NORMOCHRO MICRDW: 14.8 11.5-15.5 %PLT: 223 140-440x1 000/uLMPV : 10.9 6.5-11 flRetic: 2.26 0.5-1.5% ELEVATEDD ifferenti alAbsolut e (%) Expected (%)(x10*9 /L) (x10*9/L) Neutrophi ls: 8.71 (75.3) 1.7-7.0 (42-72%) ELEVATEDL ymphocyte s: 1.9 (16.4) 0.9-2.9 (20-44%)M onocytes: 0.83 (7.2) <0.9 (0-11%)Eo sinophils : 0.05 (.4) <0.5 (0-2%)Bas ophils: 0.03 (.3) <0.3 (<3.0%)Im m Grans: 0.05 (.4) <0.3 (0-3%)(Me tas, Myelos,Pr os)MICROS COPIC DESCRIPTI ONThe final diagnosis is based on microscop ic examinati on of an appropria telystain ed blood smear.ADD ITIONAL INFORMATI ONInterpr eted at [facility] [address], [place] [address] FINAL Tolu Nichols Medications Date Name Route Dose Frequency Instructions [...] anemia Active Notes Section * Med Onc Consult Patient Name:??VANNESA TRAORE Date of :??1945 Date of Service:??05/26/2025 Attending Physician:?Tolu Nichols (Medical Oncology) Referring Physician: Randall Choi PA-C INITIAL HEMATOLOGY/MEDICAL ONCOLOGY CONSULTATION Reason for Visit* Evaluation for elevated ferritin Assessment* Patient is a pleasant 80-year-old lady referred by Ms. Randlal Choi.?? * Recently on lab test done [...] She denies any pain or discomfort today Plan* Review of patient's recent labs show elevated ferritin of 787 1 month ago patient's ferritin was 529.?? * Other labs show in February her hemoglobin was 11.4 MCV was 95,??Her iron saturation was 86% * Due to elevated ferritin and elevated iron saturation, I would recommend that patient should be screened for hemochromatosis.?? * Also because of her macrocytosis and mild anemia is not clear I recommend that patient should have her thyroid function checked vitamin B12 level checked we will also screen her for paraproteinemia and do a peripheral smear.?? * Plan to have patient come back in 1 to 2 weeks for a follow-up. * Patient has previous history of smoking but quit in 2019 Advanced Care Planning Not discussed at this visit. Pain Scale on Today's Visit 3 Pain Plan on Today's Visit No pain plan indicated for today Smoking Status Smoking Status: Smoking Tobacco : Former smoker; Smokeless Tobacco : Never used smokeless tobacco; Vaping : Never vaped History of Present Illness * Recently on [...] She denies any pain or discomfort today Review of Systems A comprehensive review of systems was performed and the pertinent positives and negatives can be found in the History of Present Illness. Past Medical and Surgical History * Patient's past medical history significant for hypertension hypothyroidism depression anemia osteoporosis arthritis vitamin B12 deficiency effusive constrictive pericarditis paroxysmal atrial fibrillation chronic kidney disease COPD. * Patient is on long-term anticoagulation with warfarin due to atrial fibrillation. Current Medications Medication List Name Date Warfarin Oral 05/26/2025 Levothyroxine Oral 05/26/2025 Venlafaxine Oral 24 hr Cap 05/26/2025 Amlodipine Oral 05/26/2025 Propranolol Oral 05/26/2025 Allergies Current Allergy List Allergy Name Severity Status Recording Date Influenza Virus Vaccines Active 09/2024 Family History Social History 1 pack a day for 55??Years quit in 2019 Vital Signs Blood pressure: 130/84, Pulse: 62, Temperature: 97.1 F, Respirations: 16, O2 sat: 98%, Pain Scale: 3, Height: 61.5 in, Weight: 152.4 lb, BSA: 1.69, BMI: 28.33 kg/m2 Immunizations: Covid-19 vaccine (Moderna) (05/26/2025), Patient declined/rejected; Flu vaccine - Adult (05/26/2025), Patient declined/rejected Oxygen Sats 98% Performance Status ECOG or Karnofsky ECOG: Not recorded. Karnofsky: Not recorded Physical Exam Pleasant 80-year-old lady appears comfortable no acute distress ECOG performance score 1 HEENT examination normal Lungs clear to auscultation Genetics/Molecular/Biomarkers Lab Results CBC Lab Results 05/26/2025 05/01/2025 [...] 0.05 (H) LY # x 10^3/uL 1.9 Anemia Results Lab Results 05/26/2025 05/01/2025 03/27/2025 02/24/2025 Anemia Labs Reticulocyte count % 2.26 (H) Reticulocyte, absolute x 10^6/mL 0.08 Immature reticulocyte fraction, % 9.60 Reticulocyte cellular hemoglobin pg 39.2 (H) Surveys/Consents/Other Discussions Thank you for allowing me to see VANNESA TRAORE in consult. Tolu Nichols MD CC: FANelda Choi PA-C (Referring) Electronically signed by Tolu HERNÁNDEZ 05/26/2025 15:28 DISTRIBUTION OPERATION SUPERVISOR
--- OUTSIDE RECORDS SUMMARY | 2025-06-20 21:39 | XMS_ITS | Clinical Summary ---
[facility] Address [address] [place] [address] Care Team Providers Care Title Searcher Name Role Phone Franklyn Landin MD Primary Care Provider [phone] Source Comments You are receiving this document as you are listed as the primary care provider,follow-up provider, or the patient has been referred to you for consultation.This is in compliance with the Medicare andThe [facility] EHR Incentive Program,which states Providers who transition their patient to another setting of careor provider of care or refers their patient to another provider of care shouldprovide summary care record for each transition of care or referral. [employer] Allergies Active Allergy Reactions Criticality Noted Date [...] Years Used Date Smoking Tobacco: Former Cigarettes 1.5 0 08/2014 - 02/2016 Smokeless Tobacco: Never Comments Unknown Sex and Gender Information Value Date Recorded Sex Assigned at Not on file Legal Sex Female 4:42 AM CDT Gender Identity Not on file Sexual Orientation Not on file Last Filed Vital Signs Vital Sign Reading Time Taken Comments Blood Pressure 127/61 07/10/2017 1:57 PM CLAIM TRAINEE Pulse 46 08/10/2015 2:16 PM CLAIM TRAINEE Temperature - - Respiratory Rate - - [...] HP PREVENTIVE SR PREV ONEVISIT Care Teams Title Searcher Relationship Specialty Start Date End Date Franklyn Landin MD [address] [facility] [address] [place] [address] PCP - General Neurology 04/03/20
[2025-06-20 21:47] VITALS: BP 164/79; PULSE 65; RESP 16; TEMP 36.6; O2SAT 99; BMI 28.3
--- NOTE | 2025-06-20 22:07 | ED.GENADULT ---
HPI - General Adult General Chief complaint: Extremity Pain/Injury, Lower Stated complaint: right knee pain Time Seen by Provider: 06/20/25 21:42 Source: patient Mode of arrival: ambulatory Limitations: no limitations History of Present Illness HPI narrative: 80-year-old female coming in today with several concerns. 1. Knee pain. Patient states that for the last 4 years since she had a right total knee replacement, she has never been pain free however, she has been having these exacerbations of pain that make it so that she has difficult time even walking. Last time this occurred was approximately 7 weeks ago. She was seen in the ER where she had blood work and imaging done which were unremarkable. She then followed up with Orthopedics who tested her synovial fluid, culture was negative. Her pain eventually subsided back to its baseline. She states that this episode of pain started yesterday. However this morning she was feeling better she was able to walk across her living room without assistance and then in the afternoon the pain got worse again. She denies any systemic symptoms. Second concern today is arm pain. Patient states that she woke up and noticed that she had significant bruising of the left upper extremity. She cannot tell me how long the bruising is been there. She does tell me that she had an IV placed in that arm earlier this week. She states that sometimes it hurts with sometimes it does not. Again no systemic symptoms. Patient is anticoagulated, she does not know why. Patient's chart does mention paroxysmal atrial fibrillation. Related Data Home Medications ?Medication ?Instructions ?Recorded ?Confirmed amlodipine 5 mg tablet 5 mg PO DAILY 01/26/22 04/29/25 bupropion HCl 150 mg 24 hr tablet, 150 mg PO DAILY 01/26/22 04/29/25 extended release cholecalciferol (vitamin D3) 125 5,000 unit PO DAILY 01/26/22 04/29/25 mcg (5,000 unit) tablet cyanocobalamin (vitamin B-12) 1,000 mcg PO DAILY 01/26/22 04/29/25 1,000 mcg tablet ferrous sulfate 325 mg (65 mg 325 mg PO DAILY 01/26/22 04/29/25 iron) tablet fluoxetine 20 mg capsule 20 mg PO DAILY 01/26/22 04/29/25 levothyroxine 100 mcg tablet 100 mcg PO DAILY 01/26/22 04/29/25 pantoprazole 40 mg tablet,delayed 40 mg PO DAILY 01/26/22 04/29/25 release Held on 03/13/22. Instructions: Doctor's Order polyethylene glycol 3350 17 17 g PO DAILY PRN 01/26/22 04/29/25 gram/dose oral powder primidone 50 mg tablet 150 mg PO DAILY 01/26/22 04/29/25 rosuvastatin 10 mg tablet 10 mg PO DAILY 01/26/22 04/29/25 warfarin 5 mg tablet 5 - 7.5 mg PO DAILY 01/26/22 04/29/25 alendronate 70 mg tablet 70 mg PO Q7D 02/16/22 04/29/25 amiodarone 200 mg tablet 200 mg PO DAILY 02/16/22 04/29/25 furosemide 40 mg tablet 40 mg PO DAILY PRN 02/16/22 04/29/25 aspirin 81 mg chewable tablet 81 mg PO DAILY 02/17/22 04/29/25 magnesium oxide 400 mg PO DAILY 02/19/22 04/29/25 amlodipine 10 mg tablet 10 mg PO DAILY 04/27/25 04/29/25 hydrocodone 5 mg-acetaminophen 325 tab PO 04/27/25 04/29/25 mg tablet levothyroxine 75 mcg tablet 75 mcg PO DAILY 04/27/25 04/29/25 propranolol 40 mg tablet 40 mg PO BID 04/27/25 04/29/25 venlafaxine 150 mg 150 mg PO DAILY 04/27/25 04/29/25 capsule,extended release 24 hr warfarin 4 mg tablet 4 mg PO QPM 04/27/25 04/29/25 Previous Rx's ?Medication ?Instructions ?Recorded acetaminophen 325 mg capsule 650 mg (2 x 325 mg) PO QID #200 02/22/22 caps calcitonin (salmon) 200 1 spray intranasal HS 30 days #0 mL 02/22/22 unit/actuation nasal spray fentanyl 25 mcg/hr transdermal 1 patch transdermal Q72H 15 days 02/22/22 patch #5 ea Held on 03/13/22. Instructions: Doctor's Order gabapentin 300 mg capsule 300 mg PO TID #90 caps 02/22/22 hydroxyzine HCl 25 mg tablet 25 mg PO TID PRN pain #20 tabs 02/22/22 lidocaine 5 % topical patch 1 patch transdermal Q24H 30 days 02/22/22 #10 ea magnesium oxide 400 mg (241.3 mg 400 mg PO DAILY 30 days #30 tabs 02/22/22 magnesium) tablet metoprolol succinate 25 mg 25 mg PO DAILY 30 days #30 tabs 02/22/22 tablet,extended release 24 hr Allergies Allergy/AdvReac Type Severity Reaction Status Date / Time pneumococcal vaccine (From Allergy Severe Anaphylaxis Verified 04/29/25 12:56 Prevnar 13 (PF)) prednisone Allergy Mild Rash Verified 04/29/25 12:56 COVID-19 vacc, bv (Orig, Allergy Anaphylaxis Verified 04/29/25 12:56 Omicron BA.4/5) (Moderna) (From Moderna COVID Bival(6y up)(PF)) Influenza A virus Allergy Severe Anaphylaxis Uncoded 04/29/25 12:56 Review of Systems Status of ROS: Reports: 10 or more systems reviewed and unremarkable except as noted in History and below [facility] Medical History Polypharmacy ?Z79.899 - Other chcf (current) drug therapy (ICD-10) Disability of walking ?R26.2 - Difficulty in walking, not elsewhere classified (ICD-10) Right groin pain ?R10.31 - Right lower quadrant pain (ICD-10) Altered mental status ?R41.82 - Altered mental status, unspecified (ICD-10) Restrictive pericarditis ?I31.8 - Other specified diseases of pericardium (ICD-10) Vitamin B12 deficiency ?E53.8 - Deficiency of other specified B group vitamins (ICD-10) History of alcoholism ?F10.21 - Alcohol dependence, in remission (ICD-10) COPD (chronic obstructive pulmonary disease) ?J44.9 - Chronic obstructive pulmonary disease, unspecified (ICD-10) Stage 3 chronic kidney disease ?N18.30 - Chronic kidney disease, stage 3 unspecified (ICD-10) Chronic anticoagulation ?Z79.01 - terminal manager (current) use of anticoagulants (ICD-10) Paroxysmal atrial fibrillation ?I48.0 - Paroxysmal atrial fibrillation (ICD-10) Anemia ?D64.9 - Anemia, unspecified (ICD-10) Hiatal hernia ?K44.9 - Diaphragmatic hernia without obstruction or gangrene (ICD-10) Osteoporosis ?M81.0 - Age-related osteoporosis without current pathological fracture (ICD-10) Depression ?F32.A - Depression, unspecified (ICD-10) Panic disorder ?F41.0 - Panic disorder [episodic paroxysmal anxiety] (ICD-10) Hypothyroidism ?E03.9 - Hypothyroidism, unspecified (ICD-10) Spinal stenosis ?M48.00 - Spinal stenosis, site unspecified (ICD-10) Tremors of nervous system ?R25.1 - Tremor, unspecified (ICD-10) Hyperlipidemia ?E78.5 - Hyperlipidemia, unspecified (ICD-10) Thyroid disease ?E07.9 - Disorder of thyroid, unspecified (ICD-10) Lumbar radicular pain ?M54.16 - Radiculopathy, lumbar region (ICD-10) Compression fracture of lumbar vertebra ?S32.000A - Wedge compression fracture of unspecified lumbar vertebra, initial encounter for closed fracture (ICD-10) Surgical History History of repair of hiatal hernia ?Z98.890 - Other specified postprocedural states (ICD-10) ?Z87.19 - Personal history of other diseases of the digestive system (ICD-10) History of total right knee replacement (11/02/20) ?Z96.651 - Presence of right artificial knee joint (ICD-10) Family History Mother Breast cancer Lung cancer Social History Narrative: She lives near [place] with her . is healthcare power of patent attorney. Code status is DNR. She is a former cigarette smoker. Formally had a problem with alcohol abuse. She is unable to tell me today if she is still drinking and when she last had something to drink. She does not use recreational drugs. Highest level of school completed/degree received: high school graduate Smoking Status: Former smoker What tobacco products do you use: cigarettes Smoking quit date/years: <= 15 years ago Do you use any of these nicotine containing products: None Second hand tobacco smoke exposure: No How often do you have a drink containing alcohol: monthly or less Alcohol type: wine AUDIT-C Alcohol total score: 1 Non-prescribed substance use: denies use Caffeine: Yes service: No Exam Narrative: Exam Narrative: Well-nourished well-developed patient in no acute distress. Alert and oriented. Answers questions appropriately. No tangential or magical thinking noted. Patient speaks in full sentences without needing to catch her breath. She is hard of hearing. HEENT: Normocephalic atraumatic. Pupils are equally round reactive to light. Extraocular muscles are intact. Conjunctivae are moist without any icterus noted. Moist mucous membranes. Cardiovascular: Heart is regular rate and rhythm. Extremities: Bilateral lower extremities are without edema. Normal DP and PT pulses. No tenderness on her examination of the knee, well-healed surgical scar. There is no erythema or heat coming from the knee. She has pain with minimal movement. Patient has a large ecchymosis of the upper left extremity. It looks like it is several days old. There was a gravitational component to it as the distal portion is dark for than the more proximal portion. It is not circumferential but in comes is about 2/3 of the circumference of the upper arm. Over the lateral area there is a firm swelling that is erythematous and hot to touch. Not fluctuant. The site of the IV appears to be healing appropriately, it is not tender or hot. I do not feel any palpable cords. Skin: Well perfused. Const: Vital Signs, click to edit/add: Vital Signs - 24 hr 06/20/25 21:47 Temperature 98 F Pulse Rate [Pulse Oximeter] 65 Respiratory Rate 16 Blood Pressure [Ri ght Upper Arm] 164/79 H Pulse Oximetry 99 Oxygen Delivery Me thod Room Air Course Course ED Course: We proceeded with blood work to rule out evidence of systemic infection. Without any trauma or changes to the knee I do not think that x-rays would be very beneficial to us today. We will go ahead and proceed with ultrasound of the upper extremity. Blood work shows anemia with a hemoglobin of 10.7 and elevated mean cell volume of 106. This is not necessarily new for this patient INR is supratherapeutic at 4.12. Sodium is low at 134, potassium was low at 3.1 Creatinine is elevated at 2.0. Do not have a baseline for this patient. Last creatinine I have on file was from 2021 where her creatinine was 1.0. Patient does not have an elevated CRP, nor an elevated white cell count. Ultrasound in the upper extremity did not show any DVT, no underlying hematoma. Did give the patient 1 oral dose of potassium 20 mEq while in the ED. Opted not to send her home with oral potassium given her renal function. Vital Signs Vital signs: Initial Vital Signs Temperature 98 F 06/20/25 21:47 Temperature Source Temporal Artery Scan 06/20/25 21:47 Pulse Rate 65 06/20/25 21:47 Respiratory Rate 16 06/20/25 21:47 Blood Pressure 164/79 H 06/20/25 21:47 Blood Pressure Mean 107 H 06/20/25 21:47 Blood Pressure Position High-Fowlers 06/20/25 21:47 Pulse Oximetry 99 06/20/25 21:47 Oxygen Delivery Method Room Air 06/20/25 21:47 Vital Signs Temperature 98 F 06/20/25 21:47 Pulse Rate 65 06/20/25 21:47 Respiratory Rate 16 06/20/25 21:47 Blood Pressure 164/79 H 06/20/25 21:47 Pulse Oximetry 99 06/20/25 21:47 Oxygen Delivery Method Room Air 06/20/25 21:47 Temperature 98 F 06/20/25 21:47 Pulse Rate 65 06/20/25 21:47 Respiratory Rate 16 06/20/25 21:47 Blood Pressure 164/79 H 06/20/25 21:47 Pulse Oximetry 99 06/20/25 21:47 Oxygen Delivery Method Room Air 06/20/25 21:47 Medications Administered Medications: Generic Name Dose Route Start Last Admin Trade Name Freq PRN Reason Stop Dose Admin Potassium Chloride 20 meq 06/20/25 23:49 06/20/25 23:52 Potassium Chloride 10 Meq Capsule Er PO 06/20/25 23:50 20 meq ONCE ONE Administration Discontinued Medications Generic Name Dose Route Start Last Admin Trade Name Freq PRN Reason Stop Dose Admin Hydrocodone Bitart/Acetaminophen 1 tab 06/20/25 22:03 06/20/25 22:12 Hydrocodone-Acetamin 5-325 Mg 1 Tab PO 06/20/25 22:04 1 tab ONCE ONE Administration Medical Decision Making MDM Narrative Medical decision making narrative: 80-year-old female with following 1. Knee pain acute on chronic. Will discharge patient home with pain medications. Recommend follow-up with primary care to discuss a pain management plan. 2. Cellulitis of the upper extremity-will treat with Keflex b.i.d. for 7 days given her renal function. 3. Electrolyte abnormalities. I do not really have a baseline for this patient. I do recommend she follow up with her primary care provider to discuss hyponatremia and hypokalemia. 4. Renal failure. Patient has a history of stage III chronic renal failure. I do not have a baseline creatinine. At this time recommend increase oral fluid intake and follow up with primary care this coming week. 4. Anemia, chronic. Follow-up as needed. 5. Supratherapeutic INR. Hold Coumadin today. Recheck INR on Monday. Lab Data Labs: Lab Results 06/20/25 Range/Units 22:22 WBC 10.08 (4.50-11.00) K/uL RBC 3.03 L (4.00-5.20) m/uL Hgb 10.7 L (12.0-16.0) gm/dL Hct 32.1 L (33.0-51.0) % MCV 106 H (80-100) fL MCH 35 H (26-34) pg MCHC 33 (32-36) gm/dL RDW Coeff of Norma 14.4 (11.5-15.5) % Plt Count 194 (140-440) K/uL Neut % (Auto) 60.8 (42.0-72.0) % Lymph % (Auto) 26.7 (20-44) % Bullock % (Auto) 10.6 (0.0-11.0) % Eos % (Auto) 0.9 (0.0-7.0) % Baso % (Auto) 0.4 (0.0-3.0) % Neut # (Auto) 6.13 (1.7-7.0) K/uL Lymph # (Auto) 2.69 (0.90-2.90) K/uL Bullock # (Auto) 1.10 H (0.00-0.90) K/UL Eos # (Auto) 0.09 (0.00-0.50) K/uL Baso # (Auto) 0.04 (0.00-0.30) K/uL Abs Immat Gran (auto) 0.06 (0.00-0.30) K/uL Imm/Tot Granulo (auto) 0.6 % INR 4.12 H (0.91-1.10) Sodium 134 L (135-149) mmol/L Potassium 3.1 L (3.6-5.1) mmol/L Chloride 96 (96-114) mmol/L Carbon Dioxide 27 (20-32) mmol/L Anion Gap 11 (7-15) mEq/L BUN 30 (7-30) mg/dL Creatinine 2.0 H (0.5-1.5) mg/dL Estimated Creat Clear 17.49 Estimated GFR 25 ml/min Glucose 106 (60-115) mg/dL Calcium 8.7 (8.4-10.6) mg/dL C-Reactive Protein 0.6 (0.5-1.0) mg/dL Imaging Data Venous US: Attestation: I have reviewed the pertinent imaging results. Radiologist's impression: Technique: DVT ultrasound of the left upper extremity. Grayscale and color Doppler imaging utilized. Duplex/spectral analysis used. Compression and augmentation as clinically warranted. Comparison: None Findings: All vessels are grossly compressible without evidence of filling defect to suggest DVT. No superficial thrombosis appreciated. Small fluid collection noted within the area of concern. Impression: Small fluid collection noted within the area of concern, nonspecific, be correlated clinically for abscess. No DVT visualized. Discharge Plan Discharge Clinical Impression: Chronic knee pain, Cellulitis, Renal failure, Hypokalemia, Hyponatremia, Anemia, Supratherapeutic INR Patient Disposition: Home, Self-Care Condition: Stable Additional Instructions: 1. Your lab work did not show any evidence of infection or inflammation concerning for a knee infection. You will be discharged home today with pain medications to take as needed. These medications can cause constipation increase your risk of fall by causing dizziness or lightheadedness. Take with caution. You should also follow-up with your primary care provider to discuss the pain management routine for when you have knee pain flare ups. 2. Your potassium and sodium levels were low today. You received 1 dose of oral potassium while you were in the ER today. 3. Your creatinine level was elevated today. This is your kidney function level. I do not have a baseline to compare this to but I do recommend that you increase your water intake slightly over the next couple of days and again, follow-up with your primary care provider. 4. Your INR was elevated at 4.12. I recommended that you hold today's Coumadin dose, then resume as scheduled. You should have a repeat INR done on Monday. 5. Lastly, it does appear that you have an infection of the skin of your arm. You will be prescribed antibiotics that you should take as prescribed. You should have a repeat examination of your arm on Monday to make sure that is healing appropriately. If you notice that the redness is increasing or you develop vomiting, fevers or lethargy then you should return to the emergency department over the weekend. 8 tablets of Percocet and Keflex 500 mg p.o. b.i.d. for 7 days sent to [facility]. Prescriptions: No Action amlodipine 5 mg tablet 5 mg PO DAILY Rx Instructions: to replace lisinopril/hctz blood pressure medication warfarin 5 mg tablet 5 - 7.5 mg PO DAILY Patient Comments: Take 7.5mg (5mg x 1.5) every Mon, Sat; 5mg (5mg x 1) all other days in the evening primidone 50 mg tablet 150 mg PO DAILY polyethylene glycol 3350 17 gram/dose powder 17 g PO DAILY PRN pantoprazole 40 mg tablet,delayed release (DR/EC) 40 mg PO DAILY cholecalciferol (vitamin D3) 125 mcg (5,000 unit) tablet 5,000 unit PO DAILY bupropion HCl 150 mg tablet extended release 24 hr 150 mg PO DAILY rosuvastatin 10 mg tablet 10 mg PO DAILY fluoxetine 20 mg capsule 20 mg PO DAILY ferrous sulfate 325 mg (65 mg iron) tablet 325 mg PO DAILY levothyroxine 100 mcg tablet 100 mcg PO DAILY cyanocobalamin (vitamin B-12) 1,000 mcg tablet 1,000 mcg PO DAILY alendronate 70 mg tablet 70 mg PO Q7D Patient Comments: TAKE 1 TAB BY MOUTH ONCE WEEKLY IN THE MORNING ON EMPTY STOMACH W/ 8 OZ WATER STAY UPRIGHT FOR 1 HR amiodarone 200 mg tablet 200 mg PO DAILY Patient Comments: TAKE 1 TABLET BY MOUTH EVERY DAY furosemide 40 mg tablet 40 mg PO DAILY PRN Patient Comments: TAKE 1 TABLET BY MOUTH IN THE MORNING NEEDED FOR SWELLING aspirin 81 mg tablet,chewable 81 mg PO DAILY magnesium oxide 400 mg magnesium capsule 400 mg PO DAILY metoprolol succinate 25 mg Tablet Extended Release 24 Hr 25 mg PO DAILY 30 Days Qty: 30 1RF gabapentin 300 mg capsule 300 mg PO TID Qty: 90 2RF calcitonin (salmon) 200 unit/actuation [place],Non-Aerosol 1 spray intranasal HS 30 Days Qty: 0 1RF magnesium oxide 400 mg (241.3 mg magnesium) Tablet 400 mg PO DAILY 30 Days Qty: 30 1RF lidocaine 5 % Adhesive Patch,Medicated 1 patch transdermal Q24H 30 Days Qty: 10 2RF fentanyl 25 mcg/hr Patch 72 Hour 1 patch transdermal Q72H 15 Days Qty: 5 0RF acetaminophen 325 mg capsule 650 mg PO QID Qty: 200 1RF hydroxyzine HCl 25 mg tablet 25 mg PO TID PRN (Reason: pain) Qty: 20 1RF hydrocodone-acetaminophen 5-325 mg tablet PO venlafaxine 150 mg capsule,extended release 24hr 150 mg PO DAILY warfarin 4 mg tablet 4 mg PO QPM levothyroxine 75 mcg tablet 75 mcg PO DAILY propranolol 40 mg tablet 40 mg PO BID amlodipine 10 mg tablet 10 mg PO DAILY Follow Up/Referrals: Luis Ryan MD [Primary Care Provider, Family Practice] Stand Alone Forms: [facility] Info Instructions
--- NOTE | 2025-06-20 22:08 | CRLHL7_ITS ---
For Patients: As a result of the Century Cures Act, medical imaging exams and procedure reports are released immediately into your electronic medical record. You may view this report before your referring provider. If you have questions, please contact your health care provider. Indication: Pain, swelling Technique: DVT ultrasound of the left upper extremity. Grayscale and color Doppler imaging utilized. Duplex/spectral analysis used. Compression and augmentation as clinically warranted. Comparison: None Findings: All vessels are grossly compressible without evidence of filling defect to suggest DVT. No superficial thrombosis appreciated. Small fluid collection noted within the area of concern. Impression: Small fluid collection noted within the area of concern, nonspecific, be correlated clinically for abscess. No DVT visualized. Dictated by Medardo Cornejo MD @ 06/21/2025 12:04:15 AM (Electronically Signed)
--- OUTSIDE RECORDS SUMMARY | 2025-06-20 22:11 | XMS_ITS ---
Author Name Interface, [id number] lity Address [address] [facility] [address] [place] [address] [facility] Address [address] [facility] [address] [place] [address] Support Name Relationship Address Phone Lex Steel [...]
--- OUTSIDE RECORDS SUMMARY | 2025-06-20 22:11 | XMS_ITS ---
Author Name Interface, [id number] lity Address [address] [facility] [address] [place] [address] [facility] Address [address] [facility] [address] [place] [address] Support Name Relationship Address Phone Lex Traore [...] that she is planning to travel to [place] for the winter.?? Plan * I reviewed [...] continue phlebotomy monthly while she is in [place] we will plan to see her back [...] PLT x 10^3/uL 223 MPV fL 10.9 Javeir % 75.3 (H) LY % 16.4 MO [...] Electronically signed by Tolu HERNÁNDEZ 06/16/2025 20:29 HEMATOLOGY NURSE
--- OUTSIDE RECORDS SUMMARY | 2025-06-20 22:11 | XMS_ITS ---
Author Name Interface, [id number] lity Address [address] [facility] [address] [place] [address] [facility] Address [address] [facility] [address] [place] [address] Support Name Relationship Address Phone Lex Steel [...]
[2025-06-20] MEDS: HYDROCODONE-ACETAMIN 5-325 MG 1 TAB PO (22:12)
--- OUTSIDE RECORDS SUMMARY | 2025-06-20 22:12 | XMS_ITS ---
Author Name Interface, [id number] lity Address [address] [place] [address] [address] [place] [address] Organization [facility] Address [address] [facility] [address] [place] [address] Support Name Relationship Address Phone Lex Traore [...] MD on 025 FINAL Tolu Nichols * [facility] , [facility]0 [facility] [address] [id number] 0 05/26 CMP Album in g/dL 3.5 5.0 4.0 FINAL Tolu Nichols * [facility] , [facility]0 [facility] [address] [id number] 0 05/26 CMP Alkal ine phosp hatas e U/L 36.0 125.0 131 High FINAL Tolu Nichols * [facility] , [facility]0 [facility] [address] [id number] 0 05/26 CMP ALT/S GPT U/L 0.0 34.0 15 FINAL Tolu Nichols * [facility] , [address] [facility] [address] [id number] 0 05/26 CMP AST/S GOT U/L 14.0 36.0 26 FINAL Tolu Nichols * [facility] , [facility] [address] [id number] 0 05/26 CMP BUN mg/dL 7.0 17.0 29.0 High FINAL Tolu Nichols * [facility] , [address] [facility] [address] [id number] 0 05/26 CMP Calci um mg/dL 8.4 10.2 9.1 FINAL Tolu Nichols * [facility] , [facility] [address] [id number] 0 05/26 CMP Chlor gris mmol/L 96.0 107.0 102 FINAL Tolu Nichols * [facility] , [facility] [facility] [id number] 0 05/26 CMP CO2 mmol/L 22.0 30.0 [...] hour stability window. FINAL Tolu Nichols * [facility] , [address] [facility] [address] [facility] [id number] 0 05/26 CMP Creat inine mg/dL 0.66 1.25 1.60 High FINAL Tolu Nichols * [facility] , [address] [facility] [address] [id number] 0 05/26 CMP GFR estim ate ml/min /1.73m ^2 32.8 Low GFR is calculate d using the CKD-EPI equation. FINAL Tolu Nichols * [facility] , [address] [facility] [address] [id number] 0 05/26 CMP Gluco se mg/dL 74.0 100.0 80 FINAL Tolu Nichols * [facility] , [address] [facility] [address] [facility] [id number] 0 05/26 CMP Potas sium mmol/L 3.5 5.1 3.9 FINAL Tolu Nichols * [facility] , [address] [facility] [address] [id number] 0 05/26 CMP Sodiu m mmol/L 137.0 145.0 136 Low FINAL Tolu Nichols * [facility] , [address] [facility] [address] [id number] 0 05/26 CMP Bilir ubin, total mg/dL 0.2 1.3 0.7 FINAL Tolu Nichols * [facility] , [address] [facility] [id number] 0 05/26 CMP Total prote in g/dL 6.3 8.2 7.0 FINAL Tolu Nichols * [facility] , [address] [facility] [id number] 0 05/26 Jennifer tin panel Jennifer tin ng/mL 6.24 264.0 576.00 High FINAL Tolu Nichols * [facility] , [address] [facility] [id number] 0 05/26 Vitam in B12 panel Vitam in B12 pg/mL 239.0 931.0 247 Test performed at [facility]. [address], [place] [address] FINAL Tolu Nichols * [facility] , [address] [facility] [id number] 0 05/26 Folat e panel Folat e, serum ng/mL 2.8 20.0 3.2 FINAL Tolu Nichols * [facility] , [address] [facility] [id number] 0 05/26 TSH w/ refle x to free T4 TSH uIU/mL 0.47 4.68 1.78 FINAL Tolu Nichols * [facility] , [address] [facility] [id number] 0 05/26 MO % % 6.0 15.0 7.2 FINAL Tolu Nichols [facility] , [address] [facility] [id number] 0 05/26 EO % % 0.0 7.0 0.4 FINAL Tolu Nichols [place] [facility] [place] [facility] , [address] [place] [id number] 0 05/26 BA % % 0.0 2.0 0.3 FINAL Tolu Nichols [place] [facility] [place] [facility] , [address] [place] [id number] 0 05/26 LY # K/uL 0.4 3.6 1.9 FINAL Tolu Nichols [place] [facility] [place] [facility] , [address] [place] [id number] 0 05/26 MO # K/uL 0.2 1.3 0.8 FINAL Tolu Nichols [place] [facility] [place] [facility] , [address] [place] [id number] 0 05/26 EO # K/uL 0.0 0.6 0.1 FINAL Tolu Nichols [place] [facility] [place] [facility] , [address] [place] [id number] 0 05/26 BA # K/uL 0.0 0.2 0.0 FINAL Tolu Nichols [place] [facility] [place] [facility] , [address] [place] [id number] 0 05/26 NRBC % #/100W BC 0.0 0.2 0.0 FINAL Tolu Nichols [place] [facility] [place] [facility] , [address] [place] [id number] 0 05/26 RBC M/uL 3.9 5.1 3.54 Low FINAL Tolu Nichols [place] [facility] [place] [facility] , [address] [place] [id number] 0 05/26 HCT % 35.0 48.0 37.9 FINAL Tolu Nichols [place] [facility] [place] [facility] , [address] [place] [id number] 0 05/26 MCV fL 80.0 104.0 107.1 High FINAL Tolu Nichols [place] [facility] [place] [facility] , [address] [place] [id number] 0 05/26 MCH pg 26.0 35.0 34.7 FINAL Tolu Nichols [place] [facility] [place] [facility] , [address] [place] [id number] 0 05/26 MCHC g/dL 30.0 35.0 32.5 FINAL Tolu Nichols [place] [facility] [place] [facility] , [address] [place] [id number] 0 05/26 MPV fL 9.5 13.4 10.9 FINAL Tolu Nichols [place] [facility] [place] [facility] , [address] [place] [id number] 0 05/26 RDW % 11.4 16.1 14.80 FINAL Tolu Nichols [place] [facility] [place] [facility] , [address] [place] [id number] 0 05/26 Retic ulocy te, absol sun'aq M/uL 0.02 0.08 0.08 FINAL Tolu Nichols [place] [facility] [place] [facility] , [address] [place] [id number] 0 05/26 Retic ulocy te count % 0.4 1.6 2.26 High FINAL Tolu Nichols [place] [facility] [place] [facility] , [address] [place] [id number] 0 05/26 Immat ure retic ulocy te fract ion, % % 0.0 16.5 9.60 FINAL Tolu Nichols [place] [facility] [place] [facility] , [address] [place] [id number] 0 05/26 Retic ulocy te cellu lar hemog lobin pg 28.0 37.0 39.2 High FINAL Tolu Nichols [place] [facility] [place] [facility] , [address] [place] [id number] 0 05/26 WBC K/uL 3.0 8.9 11.6 High FINAL Tolu Nichols [place] [facility] [place] [facility] , [address] [place] [id number] 0 05/26 HGB g/dL 11.3 15.2 12.3 FINAL Tolu Nichols [place] [facility] [place] [facility] , [address] [place] [id number] 0 05/26 PLT K/uL 113.0 364.0 223 FINAL Tolu Nichols [place] [facility] [place] [facility] , [address] [place] [id number] 0 05/26 Javier % % 43.0 74.0 75.3 High FINAL Tolu Nichols [place] [facility] [place] [facility] , [address] [place] [id number] 0 05/26 Javier # (ANC) K/uL 1.6 6.6 8.7 High FINAL Tolu Nichols [place] [facility] [place] [facility] , [address] [place] [id number] 0 05/26 IG % % 0.0 0.5 0.4 FINAL Tolu Simone [facility] , [address] [place] [facility] [id number] 0 05/26 IG # K/uL 0.0 0.03 0.05 High FINAL Tolu Simone [facility] , [address] [facility] [address] [place] [facility] [id number] 0 05/26 LY % % 14.0 41.0 16.4 FINAL Tolu Simone [facility] , [address] [facility] [address] [facility] [id number] 0 05/26 Iron profi le TIBC ug/dL 265.0 497.0 203 Low FINAL Tolu Nichols * [facility] , [address] [facility] [id number] 0 05/26 Iron profi le Iron ug/dL 37.0 170.0 165 FINAL Tolu Nichols * [facility] , [address] [facility] [id number] 0 05/26 Iron profi le Unbou nd iron capac ity ug/dL <55.00 Low FINAL Tolu Nichols * [facility] , [address] [facility] [id number] 0 05/26 Iron profi le Iron, % satur ation % 20.0 55.0 81 High FINAL Tolu Nichols * [facility] , [address] [facility] [id number] 0 05/26 Immun oglob ulin measu remen t IgG, quant mg/dL 610.0 1616.0 811.18 Test performed at [facility] on a Binding Site Optilite Analyzer that uses a turbidime tric method for analysis. Patient testing should not be performed using multiple methodolo gies due to analytica l variation seen between test methodolo gies. FINAL Tolu Jain * [facility] , [address] [facility] [address] [facility] [id number] 0 05/26 Immun oglob ulin measu remen t IgA, quant mg/dL 61.0 348.0 155.46 Test performed at [facility] on a Binding Site Optilite Analyzer that uses a turbidime tric method for analysis. Patient testing should not be performed using multiple methodolo gies due to analytica l variation seen between test methodolo gies. FINAL Tolu Simone * [facility] , [address] [facility] [address] [facility] [id number] 0 05/26 Immun oglob ulin measu remen t IgM, quant mg/dL 35.0 242.0 32.37 Low Test performed at [facility] on a Binding Site Optilite Analyzer that uses a turbidime tric method for analysis. Patient testing should not be performed using multiple methodolo gies due to analytica l variation seen between test methodolo gies. FINAL Tolu Simone * [facility] , [address] [facility] [address] [facility] [id number] 0 05/26 Hered itary hemoc hroma tosis [...] c variants inthe HFE gene, C282Y (NM 532687.2: c.845G>A, p.Pjy284T yr) lcwZ73Z (NM 071446.2: c.187C>G, p.Ulm41Ws p), that are commonlya ssociated with HH. [...] findings, relevant history, and other laborator ydata.[facility] care providers , please contact your local [employer] genetic counselor or call [phone] [facility]([phone]) for assistanc e with the interpret ation ofthese results.T his test was developed and its analytica l performan cecharact eristics have been determine d by [employer] . It has not beenclear ed or approved by FDA. This assay has been validated pursuant to the CLIA regulatio ns and is used for clinicalp urposes.F or more informati on, please refer tohttp:// education .[facility] [place]/faq/h emotabatha winn.(Th is link is being provided for informati onal/educ atrandolph healthu rposes only.)A portion of the testing was performed at [facility].Rev iewed and signed by Laborator y testing supervise jad jeffrey monitored by Steve Fitzgerald, Ph.D., FACMG, HCLD,CGMB , Signed on 5 at 16:56 FINAL Karen [facility] [address] [facility] [id number] 4 05/26 Path perip heral blood slide revie w panel Patho logy/ Cytol ogy Morph ology SEE RESULTS BELOW CASE REPORTSpe cial Hematolog y Report Case: [id number] 0Authoriz ing Provider: Tolu Nichols MBBS Collected :05/26/20 25 1158Order ing Location: [facility] Received: 5 2145Patho logist: Bubba [...] (E03.9); Iron overload disease (E83.119) ; Vitamin C40gdaxzr ency anemia (D51.9).P er EPIC: Additiona l history includes hypertens ion, paroxysma l A-fib,hyp othyroidi sm, vitamin B12 deficienc y, alcoholic , COPD, and CKD.As of 05/01/25 12:56FERR ITIN: 787 (H)CBC AND DIFFERENT IALHEMATO LOGY PARAMETER STested at: [facility]emat[facility] [place] eRESULTS EXPECTED VALUESWBC [...] blood smear.ADD ITIONAL INFORMATI ONInterpr eted at [facility], [facility] [address], [place] [address] FINAL Tolu Nichols Medications Date Name Route [...] Electronically signed by Tolu HERNÁNDEZ 05/26/2025 15:28 CONSTRUCTION SITE CROSSING GUARD
--- OUTSIDE RECORDS SUMMARY | 2025-06-20 22:12 | XMS_ITS ---
Author Name Interface, [id number] lity Address [address] [facility] [address] [place], [place] [address] [facility] Address [address] [facility] [address] [place] [address] Support Name Relationship Address Phone Lex Traore [...] that she is planning to travel to [place] for the winter.?? Plan * I reviewed [...] continue phlebotomy monthly while she is in [place] we will plan to see her back [...] Electronically signed by Tolu HERNÁNDEZ 06/16/2025 20:29 CRYSTAL EVALUATOR
--- OUTSIDE RECORDS SUMMARY | 2025-06-20 22:12 | XMS_ITS ---
Author Name Interface, [id number] lity Address [address] [place] [address] [address] [place] [address] Organization [facility] Address [address] [facility] [address] [place] [address] Support Name Relationship Address Phone Lex Traore [...] MD on 025 FINAL Tolu Nichols * [facility] , [facility]0 [facility] [address] [id number] 0 05/26 CMP Album in g/dL 3.5 5.0 4.0 FINAL Tolu Nichols * [facility] , [facility]0 [facility] [address] [id number] 0 05/26 CMP Alkal ine phosp hatas e U/L 36.0 125.0 131 High FINAL Tolu Nichols * [facility] , [facility]0 [facility] [address] [id number] 0 05/26 CMP ALT/S GPT U/L 0.0 34.0 15 FINAL Tolu Nichols * [facility] , [address] [facility] [address] [id number] 0 05/26 CMP AST/S GOT U/L 14.0 36.0 26 FINAL Tolu Nichols * [facility] , [facility]0 [facility] [address] [id number] 0 05/26 CMP BUN mg/dL 7.0 17.0 29.0 High FINAL Tolu Nichols * [facility] , [address] [facility] [address] [id number] 0 05/26 CMP Calci um mg/dL 8.4 10.2 9.1 FINAL Tolu Nichols * [facility] , [facility] [address] [id number] 0 05/26 CMP Chlor gris mmol/L 96.0 107.0 102 FINAL Tolu Nichols * [facility] , [facility] [facility] [id number] 0 05/26 CMP CO2 mmol/L 22.0 30.0 [...] hour stability window. FINAL Tolu Nichols * [facility] , [address] [facility] [address] [facility] [id number] 0 05/26 CMP Creat inine mg/dL 0.66 1.25 1.60 High FINAL Tolu Nichols * [facility] , [address] [facility] [address] [id number] 0 05/26 CMP GFR estim ate ml/min /1.73m ^2 32.8 Low GFR is calculate d using the CKD-EPI equation. FINAL Tolu Nichols * [facility] , [address] [facility] [address] [id number] 0 05/26 CMP Gluco se mg/dL 74.0 100.0 80 FINAL Tolu Nichols * [facility] , [address] [facility] [address] [facility] [id number] 0 05/26 CMP Potas sium mmol/L 3.5 5.1 3.9 FINAL Tolu Nichols * [facility] , [address] [facility] [address] [id number] 0 05/26 CMP Sodiu m mmol/L 137.0 145.0 136 Low FINAL Tolu Nichols * [facility] , [address] [facility] [address] [id number] 0 05/26 CMP Bilir ubin, total mg/dL 0.2 1.3 0.7 FINAL Tolu Nichols * [facility] , [address] [facility] [id number] 0 05/26 CMP Total prote in g/dL 6.3 8.2 7.0 FINAL Tolu Nichols * [facility] , [address] [facility] [id number] 0 05/26 Jennifer tin panel Jennifer tin ng/mL 6.24 264.0 576.00 High FINAL Tolu Nichols * [facility] , [address] [facility] [id number] 0 05/26 Vitam in B12 panel Vitam in B12 pg/mL 239.0 931.0 247 Test performed at [facility]. [address], [place] [address] FINAL Tolu Nichols * [facility] , [address] [facility] [id number] 0 05/26 Folat e panel Folat e, serum ng/mL 2.8 20.0 3.2 FINAL Tolu Nichols * [facility] , [address] [facility] [id number] 0 05/26 TSH w/ refle x to free T4 TSH uIU/mL 0.47 4.68 1.78 FINAL Tolu Nichols * [facility] , [address] [facility] [id number] 0 05/26 MO % % 6.0 15.0 7.2 FINAL Tolu Nichols [facility] , [address] [facility] [id number] 0 05/26 EO % % 0.0 7.0 0.4 FINAL Tolu Nichols [place] [facility] [place] [facility] , [address] [place] [id number] 0 05/26 BA % % 0.0 2.0 0.3 FINAL Tolu Nichols [place] [facility] [place] [facility] , [address] [place] [id number] 0 05/26 LY # K/uL 0.4 3.6 1.9 FINAL Tolu Nichols [place] [facility] [place] [facility] , [address] [place] [id number] 0 05/26 MO # K/uL 0.2 1.3 0.8 FINAL Tolu Nichols [place] [facility] [place] [facility] , [address] [place] [id number] 0 05/26 EO # K/uL 0.0 0.6 0.1 FINAL Tolu Nichols [place] [facility] [place] [facility] , [address] [place] [id number] 0 05/26 BA # K/uL 0.0 0.2 0.0 FINAL Tolu Nichols [place] [facility] [place] [facility] , [address] [place] [id number] 0 05/26 NRBC % #/100W BC 0.0 0.2 0.0 FINAL Tolu Nichols [place] [facility] [place] [facility] , [address] [place] [id number] 0 05/26 RBC M/uL 3.9 5.1 3.54 Low FINAL Tolu Nichols [place] [facility] [place] [facility] , [address] [place] [id number] 0 05/26 HCT % 35.0 48.0 37.9 FINAL Tolu Nichols [place] [facility] [place] [facility] , [address] [place] [id number] 0 05/26 MCV fL 80.0 104.0 107.1 High FINAL Tolu Nichols [place] [facility] [place] [facility] , [address] [place] [id number] 0 05/26 MCH pg 26.0 35.0 34.7 FINAL Tolu Nichols [place] [facility] [place] [facility] , [address] [place] [id number] 0 05/26 MCHC g/dL 30.0 35.0 32.5 FINAL Tolu Nichols [place] [facility] [place] [facility] , [address] [place] [id number] 0 05/26 MPV fL 9.5 13.4 10.9 FINAL Tolu Nichols [place] [facility] [place] [facility] , [address] [place] [id number] 0 05/26 RDW % 11.4 16.1 14.80 FINAL Tolu Nichols [place] [facility] [place] [facility] , [address] [place] [id number] 0 05/26 Retic ulocy te, absol kiana M/uL 0.02 0.08 0.08 FINAL Tolu Nichols [place] [facility] [place] [facility] , [address] [place] [id number] 0 05/26 Retic ulocy te count % 0.4 1.6 2.26 High FINAL Tolu Nichols [place] [facility] [place] [facility] , [address] [place] [id number] 0 05/26 Immat ure retic ulocy te fract ion, % % 0.0 16.5 9.60 FINAL Tolu Nichols [place] [facility] [place] [facility] , [address] [place] [id number] 0 05/26 Retic ulocy te cellu lar hemog lobin pg 28.0 37.0 39.2 High FINAL Tolu Nichols [place] [facility] [place] [facility] , [address] [place] [id number] 0 05/26 WBC K/uL 3.0 8.9 11.6 High FINAL Tolu Nichols [place] [facility] [place] [facility] , [address] [place] [id number] 0 05/26 HGB g/dL 11.3 15.2 12.3 FINAL Tolu Nichols [place] [facility] [place] [facility] , [address] [place] [id number] 0 05/26 PLT K/uL 113.0 364.0 223 FINAL Tolu Nichols [place] [facility] [place] [facility] , [address] [place] [id number] 0 05/26 Javier % % 43.0 74.0 75.3 High FINAL Tolu Nichols [place] [facility] [place] [facility] , [address] [place] [id number] 0 05/26 Javier # (ANC) K/uL 1.6 6.6 8.7 High FINAL Tolu Nichols [place] [facility] [place] [facility] , [address] [place] [id number] 0 05/26 IG % % 0.0 0.5 0.4 FINAL Tolu Simone [facility] , [address] [facility] [address] [place] [facility] [id number] 0 05/26 IG # K/uL 0.0 0.03 0.05 High FINAL Tolu Simone [facility] , [address] [facility] [address] [place] [facility] [id number] 0 05/26 LY % % 14.0 41.0 16.4 FINAL Tolu Simone [facility] , [address] [facility] [address] [facility] [id number] 0 05/26 Iron profi le TIBC ug/dL 265.0 497.0 203 Low FINAL Tolu Nichols * [facility] , [address] [facility] [id number] 0 05/26 Iron profi le Iron ug/dL 37.0 170.0 165 FINAL Tolu Nichols * [facility] , [address] [facility] [id number] 0 05/26 Iron profi le Unbou nd iron capac ity ug/dL <55.00 Low FINAL Tolu Nichols * [facility] , [address] [facility] [id number] 0 05/26 Iron profi le Iron, % satur ation % 20.0 55.0 81 High FINAL Tolu Nichosl * [facility] , [address] [facility] [id number] 0 05/26 Immun oglob ulin measu remen t IgG, quant mg/dL 610.0 1616.0 811.18 Test performed at [facility] on a Binding Site Optilite Analyzer that uses a turbidime tric method for analysis. Patient testing should not be performed using multiple methodolo gies due to analytica l variation seen between test methodolo gies. FINAL Tolu Jain * [facility] , [address] [facility] [address] [facility] [id number] 0 05/26 Immun oglob ulin measu remen t IgA, quant mg/dL 61.0 348.0 155.46 Test performed at [facility] on a Binding Site Optilite Analyzer that uses a turbidime tric method for analysis. Patient testing should not be performed using multiple methodolo gies due to analytica l variation seen between test methodolo gies. FINAL Tolu Simone * [facility] , [address] [facility] [address] [facility] [id number] 0 05/26 Immun oglob ulin measu remen t IgM, quant mg/dL 35.0 242.0 32.37 Low Test performed at [facility] on a Binding Site Optilite Analyzer that uses a turbidime tric method for analysis. Patient testing should not be performed using multiple methodolo gies due to analytica l variation seen between test methodolo gies. FINAL Tolu Simone * [facility] , [address] [facility] [address] [facility] [id number] 0 05/26 Hered itary hemoc hroma tosis [...] c variants inthe HFE gene, C282Y (NM 941849.2: c.845G>A, p.Nun022Q yr) zptN24Y (NM 708121.2: c.187C>G, p.Pvp28Ud p), that are commonlya ssociated with HH. [...] findings, relevant history, and other laborator ydata.[facility] care providers , please contact your local [facility]' genetic counselor or call [phone]([phone]) for assistanc e with the interpret ation ofthese results.T his test was developed and its analytica l performan cecharact eristics have been determine d by [facility] . It has not beenclear ed or approved by FDA. This assay has been validated pursuant to the CLIA regulatio ns and is used for clinicalp urposes.F or more informati on, please refer tohttp:// education .[facility]/faq/h emotabatha winn.(Th is link is being provided for informati onal/educ atnovant health [facility] center[facility] rposes only.)A portion of the testing was performed at [facility].Rev iewed and signed by Laborator y testing supervise jad jeffrey monitored by Steve Fitzgerald, Ph.D., FACMG, HCLD,CGMB , Signed on 5 at 16:56 FINAL Karen [facility] [address] [facility] [id number] 4 05/26 Path perip heral blood slide revie w panel Patho logy/ Cytol ogy Morph ology SEE RESULTS BELOW CASE REPORTSpe cial Hematolog y Report Case: [id number] ing Provider: Tolu Nichols MBBS Collected :05/26/20 25 1158Order ing Location: [facility] Received: 5 2145Patho logist: [...] (E03.9); Iron overload disease (E83.119) ; Vitamin D07ihvhza ency anemia (D51.9).P er EPIC: Additiona l history includes hypertens ion, paroxysma l A-fib,hyp othyroidi sm, vitamin B12 deficienc y, alcoholic , COPD, and CKD.As of 05/01/25 12:56FERR ITIN: 787 (H)CBC AND DIFFERENT IALHEMATO LOGY PARAMETER STested at: [facility] [place] eRESULTS EXPECTED VALUESWBC [...] blood smear.ADD ITIONAL INFORMATI ONInterpr eted at [facility], [facility] [address], [place] [address] FINAL Tolu Nichols Medications Date Name Route [...] Electronically signed by Tolu HERNÁNDEZ 05/26/2025 15:28 DONOR RECRUITER
[2025-06-20 22:32] LABS: Hematocrit* 32.1 % (33.0-51.0); Hemoglobin* 10.7 gm/dL (12.0-16.0); Immature Granulocytes Abs Auto 0.06 K/uL (0.00-0.30); Immature Granulocytes Pct Auto 0.6 %; Lymphocytes Absolute Auto 2.69 K/uL (0.90-2.90); Mean Corpuscular HGB Conc 33 gm/dL (32-36); Mean Corpuscular Hemoglobin 35 pg (26-34); Mean Corpuscular Volume 106 fL (80-100); RDW Coefficient of Variation % 14.4 % (11.5-15.5); Red Blood Count* 3.03 m/uL (4.00-5.20); White Blood Count* 10.08 K/uL (4.50-11.00)
[2025-06-20 22:34] LABS: Slide Review Reflex No
[2025-06-20 22:39] LABS: Chloride* 96 mmol/L (96-114)
[2025-06-20 22:40] LABS: Potassium* 3.1 mmol/L (3.6-5.1); Sodium* 134 mmol/L (135-149)
[2025-06-20 22:43] LABS: Anion Gap 11 mEq/L (7-15); Blood Urea Nitrogen* 30 mg/dL (7-30); Calcium* 8.7 mg/dL (8.4-10.6); Carbon Dioxide* 27 mmol/L (20-32); Creatinine* 2.0 mg/dL (0.5-1.5); Est. Creatinine Clearance* 17.49; Estimated Glomerular Filt Rate 25 ml/min; Glucose* 106 mg/dL (60-115)
[2025-06-20 22:56] LABS: INR 4.12 (0.91-1.10); Prothrombin Time 41.3 Seconds
[2025-06-20] MEDS: POTASSIUM CHLORIDE 10 MEQ CAPSULE ER 20 MEQ PO (23:52)
== END 2025-06-21 00:34 | disposition home or self-care (01) ==
PROVIDERS: Emergency Provider Family Medicine; PCP Family Medicine
DX: M25.561 Pain in right knee (principal); L03.114 Cellulitis of left upper limb; N18.30 Chronic kidney disease, stage 3 unspecified; D64.9 Anemia, unspecified; E87.1 Hypo-osmolality and hyponatremia; E87.6 Hypokalemia; Z79.01 Long term (current) use of anticoagulants; M79.661 Pain in right lower leg
CPT/HCPCS: 36415; 80048; 83735; 85025; 85610; 86140; 93971; 99284; 99285; A9270